=== PATIENT | female | born 1950 | race Caucasian/White ===

== ENCOUNTER 2017-09-11 07:53 | Emergency (ER) | payer OTHER, MEDICAID ==
--- NOTE | 2017-09-11 08:01 | EDPHY ---
H & P Time Seen by Provider: 09/11/17 08:01 HPI/ROS: CHIEF COMPLAINT: Shaky and lightheaded HISTORY OF PRESENT ILLNESS: Patient says she has been having the symptoms 3 times a week for the past year. She gets shaky and lightheaded and feels dizzy , not vertigo or spinning. Symptoms were this morning, she says they are severe. Not associated with chest or abdominal pain or vomiting. No weakness or numbness in extremities. No visual symptoms. She is specifically worried she might have a recurrent urinary tract infection as she tells me she had urosepsis about a month ago and was hospitalized. REVIEW OF SYSTEMS: Eye: no change in vision ENT: no sore throat Cardiac: no chest pain or syncope Pulmonary: no cough or SOB Abdomen: no vomiting, diarrhea, abdominal pain Musculoskeletal: no back pain Skin: no rash Neuro: Very mild headache which is her typical migraine Constitutional: no fever : Worsening smell of her urine. A comprehensive 10 point review of systems is otherwise negative aside from elements mentioned in the history of present illness. PAST MEDICAL HISTORY: Discharge summary dated 04/16/2015 in [facility] dated 2013 personally reviewed includes hypertension, cirrhosis, bipolar disorder, GERD, diabetes, cholecystectomy, hysterectomy, AICD placement. Social history: Recently homeless General Appearance: Alert and conversant, cooperative. Eyes: No scleral icterus. ENT, Mouth: Normal mucous membranes. Respiratory: Normal respiratory effort, breath sounds equal, lungs are clear to auscultation. Cardiovascular: Regular rate and rhythm. Gastrointestinal: Abdomen is soft and non tender. Neurological: Alert, face symmetric, normal motor and sensory in extremities. Extraocular motion intact. Good strength in all 4 extremities. Speech is fluent. Skin: Warm and dry, no rashes. Musculoskeletal: No peripheral edema. Psychiatric: Appears anxious and depressed. Emergency Department course/MDM: Plan for labs and EKG, urinalysis. Results discussed with the patient, seen by case management, stable for discharge. Ambulatory without ataxia. She does have symptoms that she gets 3 times a week for the past year. At this time I think it is unlikely she has UTI, AICD malfunction, metabolic abnormality, acute stroke or other intracranial or neurologic emergent illness. Smoking Status: Current every day smoker Constitutional: Initial Vital Signs Temperature (C) 36.7 C 06/21/18 08:06 Heart Rate 71 09/11/17 08:06 Respiratory Rate 16 09/11/17 08:06 Blood Pressure 161/89 H 09/11/17 08:06 O2 Sat (%) 95 09/11/17 08:06 O2 Delivery Mode Room Air Allergies/Adverse Reactions: codeine Allergy (Verified 04/13/15 17:14) meperidine HCl [From Demerol] Allergy (Verified 04/13/15 17:14) methadone [Methadone] Allergy (Verified 04/13/15 17:14) morphine Allergy (Verified 04/13/15 17:14) nalbuphine HCl [From Nubain] Allergy (Verified 04/13/15 17:14) Home Medications: Medication Instructions Recorded Folic Acid [Folic Acid 1 MG (*)] 1 mg PO DAILY 01/17/14 LORazepam [Ativan (*)] 1 mg PO Q6H PRN 01/17/14 Lactulose [Generlac] 30 gm PO TID PRN 01/17/14 Levothyroxine [Synthroid 75 mcg 75 mcg PO DAILY06 01/17/14 (*)] Metoprolol Tartrate [Lopressor 25 12.5 mg PO BID 01/17/14 mg (*)] Rifaximin [Xifaxan] 550 mg PO BID 01/17/14 Medical Decision Making - Diagnostics EKG Interpretation: 12-lead EKG interpreted by me; official reading is in trace master. My interpretation is sinus rhythm rate 62 with atrial sensing and ventricular pacing. Imaging Results: Imaging Impressions Chest X-Ray 09/11/17 08:54 Impression: 1. Pacemaker unit and leads in stable position. 2. No active cardiopulmonary disease seen. Chest x-ray negative except for AICD. Imaging: I viewed and interpreted images myself Differential Diagnosis: Differential considered including but not limited to hypoglycemia, cardiac dysrhythmia, infection such as UTI or pyelonephritis, metabolic abnormality - Data Points Laboratory Results: Laboratory Results 09/11/17 08:00 09/11/17 08:00 09/11/17 09/11/17 09/11/17 08:55 08:00 08:00 WBC 3.80 10^3/uL 10^3/uL (3.80-9.50) RBC 4.87 10^6/uL 10^6/uL (4.18-5.33) Hgb 13.3 g/dL g/dL (12.6-16.3) Hct 40.6 % % (38.0-47.0) MCV 83.4 fL fL (81.5-99.8) MCH 27.3 pg L pg (27.9-34.1) MCHC 32.8 g/dL g/dL (32.4-36.7) RDW 17.0 % H % (11.5-15.2) Plt Count 94 10^3/uL L 10^3/uL (150-400) MPV 10.6 fL fL (8.7-11.7) Neut % (Auto) 58.4 % % (39.3-74.2) Lymph % (Auto) 24.5 % % (15.0-45.0) [place] % (Auto) 11.8 % % (4.5-13.0) Eos % (Auto) 4.2 % % (0.6-7.6) Baso % (Auto) 0.8 % % (0.3-1.7) Nucleat RBC Rel Count 0.0 % % (0.0-0.2) Absolute Neuts (auto) 2.22 10^3/uL 10^3/uL (1.70-6.50) Absolute Lymphs (auto) 0.93 10^3/uL L 10^3/uL (1.00-3.00) Absolute Monos (auto) 0.45 10^3/uL 10^3/uL (0.30-0.80) Absolute Eos (auto) 0.16 10^3/uL 10^3/uL (0.03-0.40) Absolute Basos (auto) 0.03 10^3/uL 10^3/uL (0.02-0.10) Absolute Nucleated RBC 0.00 10^3/uL 10^3/uL (0-0.01) Immature Gran % 0.3 % % (0.0-1.1) Immature Gran # 0.01 10^3/uL 10^3/uL (0.00-0.10) Sodium 144 mEq/L mEq/L (135-145) Potassium 4.0 mEq/L mEq/L (3.3-5.0) Chloride 107 mEq/L mEq/L (97-110) Carbon Dioxide 26 mEq/l mEq/l (22-31) Anion Gap 14 mEq/L mEq/L (8-16) BUN 10 mg/dL mg/dL (7-23) Creatinine 0.6 mg/dL mg/dL (0.6-1.0) Estimated GFR > 60 Glucose 83 mg/dL mg/dL (70-100) Calcium 10.1 mg/dL mg/dL (8.5-10.4) Urine Color YELLOW Urine Appearance CLEAR Urine pH 7.0 (5.0-7.5) Ur Specific [place] 1.009 (1.002-1.030) Urine Protein NEGATIVE (NEGATIVE) Urine Ketones NEGATIVE (NEGATIVE) Urine Blood NEGATIVE (NEGATIVE) Urine Nitrate POSITIVE H (NEGATIVE) Urine Bilirubin NEGATIVE (NEGATIVE) Urine Urobilinogen NEGATIVE EU EU (0.2-1.0) Ur Leukocyte Esterase NEGATIVE (NEGATIVE) Urine RBC 1-3 /hpf /hpf (0-3) Urine WBC 1-3 /hpf /hpf (0-3) Ur Epithelial Cells TRACE /lpf /lpf (NONE-1+) Urine Bacteria TRACE /hpf H /hpf (NONE SEEN) Urine Glucose NEGATIVE (NEGATIVE) Medications Given: Discontinued Medications Sodium Chloride (Ns) 1,000 mls @ 0 mls/hr IV EDNOW ONE; Wide Open PRN Reason: Protocol Stop: 09/11/17 09:26 Last Admin: 09/11/17 09:43 Dose: 1,000 mls Departure - Departure Disposition: Home, Routine, Self-Care Clinical Impression: Light-headed feeling Condition: Good Instructions: Lightheadedness (ED) Referrals: JANE LEIVA [Primary Care Provider] - As per Instructions
--- NOTE | 2017-09-11 08:37 | CPEKG ---
Heart Rate: 62 RR Interval: 968 P-R Interval: 208 QRSD Interval: 144 QT Interval: 508 QTC Interval: 516 P [place]: 61 QRS [place]: 44 T Wave [place]: 232 EKG Severity - ABNORMAL ECG - EKG Impression: ATRIAL-SENSED VENTRICULAR-PACED COMPLEXES EKG Impression: LEFT BUNDLE BRANCH BLOCK Electronically Signed By: Triston Miles 11-Sep-2017 08:54:41
[2017-09-11 08:56] LABS: PLATELET COUNT 94 10^3/uL (150-400)
[2017-09-11] MEDS ORDERED: NS 1,000 ML IV ONE (09:25)
[2017-09-11 09:47] VITALS: BP 160/98
--- NOTE | 2017-09-11 10:50 | ASMTCMCOM ---
CM Note CM Note Notes: Met with patient to discuss and evaluate for resources and emotional support. See ER report for details of vist. Patient is pleasant and tearful, appreciative of visit/talking. She tells me she is struggling with her family situation, "my kids won't talk to me" and has been staying at the "assisted". Patient admits to going through the coordinated entry program, and this is how she currently has a spot at [facility]. Patient denies history of drug or alcohol abuse, "I never drank" and does not take medication for a documented history of bipolar disorder. "I don't think I have that anymore". She does admit to anxiety for which she states, "I'd reallly like someone to listen to me". I asked patient if she has a counselor or therapist that she can see and reminded her of the crisis center at [facility]. Patient states that she goes to the [facility]" in [place] "because they know me there". She denies any pending appointments or establishment with a therapist. I encouraged her to be more proactive in following up with this, and again reminded her that the crisis center in [place] is available 14/10 via phone or walk in. I have provided patient with a bus pass and contact information for [facility]-all locations. I explained that I am providing her with this pass so that she can follow up with [facility] now, and she assures me she will follow up with establishing a counselor. Date Signed: 09/11/2017 10:49 AM Electronically Signed By:Peace Garza RN
== END 2017-09-11 10:21 | disposition home or self-care (01) ==
LOC: EDUNIT#
DX: R42 Dizziness and giddiness (principal); I10 Essential (primary) hypertension; E11.9 Type 2 diabetes mellitus without complications; F17.200 Nicotine dependence, unspecified, uncomplicated; E86.9 Volume depletion, unspecified

== ENCOUNTER 2017-09-29 19:20 | Emergency (ER) | payer OTHER, MEDICAID ==
--- NOTE | 2017-09-29 19:35 | EDPHY ---
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 dementia, - Social History Smoking Status: Current every day smoker Time Seen by Provider: 09/29/17 19:29 HPI/ROS: CHIEF COMPLAINT: "I just want to " HISTORY OF PRESENT ILLNESS: 59-year-old female history of homelessness, bipolar disorder, arrives on M1 hold complaining suicidal ideation with plan to "[place] the [place] and give myself back to nature". Denies illicit drug or alcohol use. Denies hallucination. Denies self-injurious behavior. States that the primary reason for experiencing suicidal ideations because "nobody loves me" PRIMARY CARE PROVIDER: REVIEW OF SYSTEMS: A ten point review of systems was performed and is negative with the exception of the items mentioned in the HPI PAST MEDICAL & SURGICAL HISTORY: Bipolar disorder. Chronic migraine SOCIAL HISTORY:Homeless. Denies alcohol or drug use PHYSICAL EXAM (Prior to examination, patient consented to physical exam, hands were washed and my usual and customary physical exam procedures followed) 1) GENERAL: [Well-developed, well-nourished, alert and oriented. Crying 2) HEAD: Normocephalic, atraumatic 3) HEENT: Pupils equal, round, reactive to light bilaterally. Sclera anicteric. 4) NECK: Full range of motion, no meningeal signs. 5) LUNGS: Clear auscultation bilaterally, no wheezes, no rhonchi, no retractions. 6) HEART: Regular rate and rhythm, no murmur, no heave, no gallop. 7) ABDOMEN: No guarding, no rebound, no focal tenderness, negative McBurney's, negative Stephenson's, negative Rovsing's, negative peritoneal sign, 8) MUSCULOSKELETAL: Moving all extremities, no focal areas of tenderness, no obvious trauma. No peripheral edema or discoloration. 9) BACK: No CVA tenderness, no midline vertebral tenderness, no fluctuance, no step-off, no obvious trauma, no visual or palpable abnormality. 10) SKIN: No rash, no petechiae. 11) Psychiatric: Patient is oriented X 3, there is no agitation. Crying DIFFERENTIAL DIAGNOSIS: In no particular include but limited to suicidal ideation, homicidal ideation, depression, bipolar disorder (Kaylan,D Nalini) Constitutional: Initial Vital Signs Temperature (C) 36.9 C 09/29/17 19:20 Heart Rate 88 09/29/17 19:20 Respiratory Rate 16 09/29/17 19:20 Blood Pressure 178/92 H 09/29/17 19:20 O2 Sat (%) 95 09/29/17 19:20 O2 Delivery Mode Room Air Allergies/Adverse Reactions: codeine Allergy (Verified 04/13/15 17:14) meperidine HCl [From Demerol] Allergy (Verified 04/13/15 17:14) methadone [Methadone] Allergy (Verified 04/13/15 17:14) morphine Allergy (Verified 04/13/15 17:14) nalbuphine HCl [From Nubain] Allergy (Verified 04/13/15 17:14) Home Medications: Medication Instructions Recorded LORAZEPAM 09/29/17 LaMICtal 09/29/17 Oxybutynin 09/29/17 Zofran 09/29/17 Medical Decision Making ED Course/Re-evaluation: I did not see this patient while she was in the emergency department. However her care was discussed with the PA while the patient was in the department. I agree with treatment plan and management (Donn Villalpando) 7:34 p.m.: Patient is on an M1 hold for suicidal ideation. Will obtain diagnostic studies and contact mental health gas meter repair supervisor. This time she is calm and cooperative. I saw this patient independently based on established practice protocols. Care of patient under supervision of secondary supervising physician Dr Donn Villalpando with whom I discussed case. 8:19 p.m.: Patient has history of chronic migraine, complaining of early onset of usual migraine symptoms, non thunderclap. I spoke with the patient's time in re-examined the patient. Nonfocal exam, answering questions appropriately. States that she typically takes 25 mg oral Imitrex. This will be provided to her. 10:47 p.m.: Mental health gas meter repair supervisor has evaluated the patient. In consultation with with attending psychiatrist Dr. Salazar who has vacated the M1 hold (Shahida Kimbrough) - Data Points Laboratory Results: Laboratory Results 09/29/17 19:50 09/29/17 19:50 09/29/17 09/29/17 09/29/17 19:50 19:50 19:40 WBC 4.66 10^3/uL 10^3/uL (3.80-9.50) RBC 4.29 10^6/uL 10^6/uL (4.18-5.33) Hgb 11.9 g/dL L g/dL (12.6-16.3) Hct 36.0 % L % (38.0-47.0) MCV 83.9 fL fL (81.5-99.8) MCH 27.7 pg L pg (27.9-34.1) MCHC 33.1 g/dL g/dL (32.4-36.7) RDW 16.1 % H % (11.5-15.2) Plt Count 114 10^3/uL L 10^3/uL (150-400) MPV 11.9 fL H fL (8.7-11.7) Neut % (Auto) 50.0 % % (39.3-74.2) Lymph % (Auto) 33.5 % % (15.0-45.0) [place] % (Auto) 12.0 % % (4.5-13.0) Eos % (Auto) 3.6 % % (0.6-7.6) Baso % (Auto) 0.9 % % (0.3-1.7) Nucleat RBC Rel Count 0.0 % % (0.0-0.2) Absolute Neuts (auto) 2.33 10^3/uL 10^3/uL (1.70-6.50) Absolute Lymphs (auto) 1.56 10^3/uL 10^3/uL (1.00-3.00) Absolute Monos (auto) 0.56 10^3/uL 10^3/uL (0.30-0.80) Absolute Eos (auto) 0.17 10^3/uL 10^3/uL (0.03-0.40) Absolute Basos (auto) 0.04 10^3/uL 10^3/uL (0.02-0.10) Absolute Nucleated RBC 0.00 10^3/uL 10^3/uL (0-0.01) Immature Gran % 0.0 % % (0.0-1.1) Immature Gran # 0.00 10^3/uL 10^3/uL (0.00-0.10) Sodium 139 mEq/L mEq/L (135-145) Potassium 4.0 mEq/L mEq/L (3.3-5.0) Chloride 110 mEq/L mEq/L (97-110) Carbon Dioxide 23 mEq/l mEq/l (22-31) Anion Gap 6 mEq/L L mEq/L (8-16) BUN 12 mg/dL mg/dL (7-23) Creatinine 0.6 mg/dL mg/dL (0.6-1.0) Estimated GFR > 60 Glucose 79 mg/dL mg/dL (70-100) Calcium 9.9 mg/dL mg/dL (8.5-10.4) Salicylates < 1.0 mg/dL L mg/dL (2.0-20.0) Urine Opiates Screen NEGATIVE (NEGATIVE) Acetaminophen < 10 mcg/mL L mcg/mL (10-30) Urine Barbiturates NEGATIVE (NEGATIVE) Ur Phencyclidine Scrn NEGATIVE (NEGATIVE) Ur Amphetamine Screen NEGATIVE (NEGATIVE) U Benzodiazepines Scrn NEGATIVE (NEGATIVE) Urine Cocaine Screen NEGATIVE (NEGATIVE) U Marijuana (THC) Screen NON-NEGATIVE H (NEGATIVE) Ethyl Alcohol < 10 mg/dL mg/dL (0-10) Medications Given: Discontinued Medications Sumatriptan Succinate (Imitrex) 25 mg PO ONCE ONE Stop: 09/29/17 20:20 Last Admin: 09/29/17 21:01 Dose: 25 mg Departure - Departure Disposition: Home, Routine, Self-Care Clinical Impression: Depression Bipolar disorder Qualifiers: Active/Remission status: currently active Current bipolar episode type: depressed Current episode severity: unspecified Qualified Code(s): F31.30 - Bipolar disorder, current episode depressed, mild or moderate severity, unspecified Condition: Good Instructions: Depression (DC), Depression (ED) Additional Instructions: Return to the ER immediately if you experience thoughts of hurting yourself, thoughts of hurting other people, thoughts of killing other people or killing yourself. Referrals: [facility] [Clinic] - 1 day without fail
[2017-09-29 20:10] LABS: PLATELET COUNT 114 10^3/uL (150-400)
[2017-09-29 20:17] VITALS: BP 178/92
[2017-09-29] MEDS ORDERED: SUMAtriptan 25 MG TAB PO ONE (20:19)
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
--- NOTE | 2017-09-29 23:13 | ASMTTCLDSP ---
TLC Discharge Disposition Disposition: Answers: Discharge Disposition Notes: Notes: In consultation with [facility] ED physician, Donn Villalpando MD, and on-call psychiatrist, Cirilo Salazar MD, both concurred that the patient does not appear to meet 27-65 criteria requiring psychiatric hospitalization as patient does not appear to be an imminent risk of harm to self due to a mental illness condition. Dr. Salazar provided telephone order read back vacating M1 hold at 22:00 hrs. Discharge Concerns/Recommendations: Notes: The patient was given local hotline information and [employer] brochure after an attempt an d encouraged to follow up with [facility] and Shane Barrios MD (the patient's PCP). Was patient given the Answers: Not applicable Inpatient Behavioral Health Prohibited Belongings List while in the ED? Date and time M1 hold 09/29/2017 10:30 PM vacated (time format is hh:mm): Type of Hold: Answers: M1/72-hour Hold Hold initiated by: Answers: Other Notes: Homeless Outreach Therapist Date Signed: 09/29/2017 11:12 PM Electronically Signed By:Terri Gerardo
== END 2017-09-29 23:30 | disposition home or self-care (01) ==
LOC: EDUNIT#
PROC: GZ11ZZZ Psychological Tests, Personality and Behavioral (ICD-10-PCS; principal; 2017-09-29)
DX: F31.30 Bipolar disorder, current episode depressed, mild or moderate severity, unspecified (principal); J45.909 Unspecified asthma, uncomplicated; E11.9 Type 2 diabetes mellitus without complications; F17.200 Nicotine dependence, unspecified, uncomplicated; Z95.0 Presence of cardiac pacemaker
CPT/HCPCS: 80305; G0480

== ENCOUNTER 2018-01-09 07:05 | Emergency (ER) | payer OTHER, MEDICAID ==
--- NOTE | 2018-01-09 07:14 | EDPHY ---
H & P Time Seen by Provider: 01/09/18 07:13 HPI/ROS: Chief complaint. Respiratory infection HPI. 59-year-old female here by EMS with complaint of shortness of breath. Diagnosed with respiratory infection that does not sound like it was pneumonia 5 days ago. Started on antibiotics. She has been taking them but does not have been with her and does not know the name. She notes some shortness of breath and cough. She has a history of pneumonia. She tells me her heart feels fluttery. She has a history of atrial fibrillation with a pacemaker defibrillator in place. She had fever a few days ago but not since. She continues to be a smoker. She has history of black mold exposure in the past ROS 10 systems were reviewed and negative with the exception of the elements mentioned in the history of present illness Past Medical/Surgical History: Past medical history significant for bipolar illness, diabetes, pacemaker/ defibrillator, atrial fibrillation, liver disease, dementia Social History: Single, daily smoker, no alcohol Smoking Status: Current every day smoker Physical Exam: General Appearance: Alert well-developed female mild distress vital signs are stable Eyes: Pupils equal and round no pallor or injection. ENT, Mouth: Mucous membranes are moist. Respiratory: No retractions. Mild inspiratory expiratory rhonchi Cardiovascular: Regular rate and rhythm. Gastrointestinal: Abdomen is soft and nontender, no masses, bowel sounds normal. Neurological: Awake and alert, sensory and motor exams grossly normal. Skin: Warm and dry, no rashes. Musculoskeletal: Neck is supple nontender. Extremities symmetrical, full range of motion. Psychiatric: Patient is oriented X 3, there is no agitation. Constitutional: Initial Vital Signs Temperature (C) 36.4 C 01/09/18 07:07 Heart Rate 83 01/09/18 07:07 Respiratory Rate 24 H 01/09/18 07:07 Blood Pressure 145/66 H 01/09/18 07:07 O2 Sat (%) 96 01/09/18 07:07 O2 Delivery Mode Room Air Allergies/Adverse Reactions: codeine Allergy (Verified 04/13/15 17:14) meperidine HCl [From Demerol] Allergy (Verified 04/13/15 17:14) methadone [Methadone] Allergy (Verified 04/13/15 17:14) morphine Allergy (Verified 04/13/15 17:14) nalbuphine HCl [From Nubain] Allergy (Verified 04/13/15 17:14) Home Medications: Medication Instructions Recorded LORAZEPAM 09/29/17 LaMICtal 09/29/17 Oxybutynin 09/29/17 Zofran 09/29/17 predniSONE 40 mg PO DAILY #8 tablet 01/09/18 Medical Decision Making - Diagnostics Imaging Results: Imaging Impressions Chest X-Ray 01/09/18 07:10 Impression: 1. No acute findings. 2. Hyperexpansion with peribronchial thickening, suggesting COPD. 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 No obvious pneumonia Procedures: IV normal saline, monitor DuoNeb updraft Solu-Medrol IV ED Course/Re-evaluation: Re-evaluation 9:20 a.m.--patient and I discussed laboratory evaluation, treatment plan including criteria for return importance of follow-up further evaluation. She expresses understanding and agreement Patient is stable and improved. She tells me she has an inhaler and a spacer but they do not fit together. We will give her a albuterol MDI and spacer that fits. Differential Diagnosis: I considered pneumonia, COPD exacerbation - Data Points Laboratory Results: Laboratory Results 01/09/18 07:12 01/09/18 07:12 01/09/18 01/09/18 01/09/18 07:12 07:12 07:12 WBC 6.50 10^3/uL 10^3/uL (3.80-9.50) RBC 4.52 10^6/uL 10^6/uL (4.18-5.33) Hgb 11.8 g/dL L g/dL (12.6-16.3) Hct 36.1 % L % (38.0-47.0) MCV 79.9 fL L fL (81.5-99.8) MCH 26.1 pg L pg (27.9-34.1) MCHC 32.7 g/dL g/dL (32.4-36.7) RDW 17.4 % H % (11.5-15.2) Plt Count 104 10^3/uL L 10^3/uL (150-400) MPV 12.0 fL H fL (8.7-11.7) Neut % (Auto) 69.4 % % (39.3-74.2) Lymph % (Auto) 20.0 % % (15.0-45.0) Williams % (Auto) 10.0 % % (4.5-13.0) Eos % (Auto) 0.2 % L % (0.6-7.6) Baso % (Auto) 0.2 % L % (0.3-1.7) Nucleat RBC Rel Count 0.0 % % (0.0-0.2) Absolute Neuts (auto) 4.52 10^3/uL 10^3/uL (1.70-6.50) Absolute Lymphs (auto) 1.30 10^3/uL 10^3/uL (1.00-3.00) Absolute Monos (auto) 0.65 10^3/uL 10^3/uL (0.30-0.80) Absolute Eos (auto) 0.01 10^3/uL L 10^3/uL (0.03-0.40) Absolute Basos (auto) 0.01 10^3/uL L 10^3/uL (0.02-0.10) Absolute Nucleated RBC 0.00 10^3/uL 10^3/uL (0-0.01) Immature Gran % 0.2 % % (0.0-1.1) Immature Gran # 0.01 10^3/uL 10^3/uL (0.00-0.10) VBG Lactic Acid 2.0 mmol/L mmol/L (0.7-2.1) Sodium 143 mEq/L mEq/L (135-145) Potassium 4.1 mEq/L mEq/L (3.3-5.0) Chloride 113 mEq/L H mEq/L (97-110) Carbon Dioxide 22 mEq/l mEq/l (22-31) Anion Gap 8 mEq/L mEq/L (6-14) BUN 12 mg/dL mg/dL (7-23) Creatinine 0.5 mg/dL L mg/dL (0.6-1.0) Estimated GFR > 60 Glucose 106 mg/dL H mg/dL (70-100) Calcium 9.8 mg/dL mg/dL (8.5-10.4) Medications Given: Discontinued Medications Albuterol/Ipratropium (Duoneb) 3 ml IH EDNOW ONE Stop: 01/09/18 07:25 Last Admin: 01/09/18 07:31 Dose: 3 ml Methylprednisolone Sodium Succinate (Solu-Medrol) 125 mg IVP EDNOW ONE Stop: 01/09/18 07:26 Last Admin: 01/09/18 07:31 Dose: 125 mg Departure - Departure Disposition: Home, Routine, Self-Care Clinical Impression: Chronic obstructive pulmonary disease with acute exacerbation Condition: Good Instructions: COPD (Chronic Obstructive Pulmonary Disease) (ED) Additional Instructions: Take prednisone each day for the next 4 days to help with breathing. Use the albuterol and spacer every 4 hr to help with breathing Continue antibiotics until they are finished Return for worsening symptoms. Recheck in 2 days if not improved Referrals: Patient,NotPresent [Unknown] - As per Instructions [facility] [Outside] - 2-3 days, if not improved Prescriptions: predniSONE 40 mg PO DAILY #8 tablet
[2018-01-09] MEDS ORDERED: IPRATROPIUM/ALBUTEROL 3 ML DEYVIAL IH ONE (07:24)
[2018-01-09] MEDS ORDERED: methylPREDNISolone SOD SUCC 125 MG/2 ML VIAL IVP ONE (07:25)
[2018-01-09 07:29] LABS: PLATELET COUNT 104 10^3/uL (150-400)
[2018-01-09] MEDS ORDERED: ALBUTEROL INH PREPACK MDI TAKEHOME ONE (09:24)
--- NOTE | 2018-01-09 10:27 | CPEKG ---
Test Reason : OPEN Blood Pressure : / mmHG Vent. Rate : 073 BPM Atrial Rate : 074 BPM P-R Int : 175 ms QRS Dur : 145 ms QT Int : 430 ms P-R-T Axes : 055 016 194 degrees QTc Int : 474 ms Sinus rhythm Probable left atrial enlargement Left bundle branch block Confirmed by Donn Villalpando ([id number]) on 01/09/2018 10:27:22 AM Referred By: Confirmed By:Donn Villalpando
[2018-01-09 10:52] VITALS: BP 175/90
--- NOTE | 2018-01-09 14:42 | ASMTCMCOM ---
CM Note CM Note Notes: Pt presented to the ED via EMS for SOB and states she was diagnosed w/a respiratory infection 01/05. Pt has been staying at the [facility] and states she is close to getting Section 8 housing. Pt states she has an inhaler back at the snf but the spacer she has does not fit properly. The one available from the ED is the same one she has at the snf. Pt states that the spacer she needs was a part of a prescription she received from Dr Ankush Putnam who used to be at [facility] in [place] but is no longer at that practice. Pt's PCP is Dr Shane Barrios at [facility] in [place] ([phone]). This CM called and left a voicemail for Dr Barrios's Copy Chaser, Taylor, to inquire about what exact inhaler Rxn pt needs but have not heard back. This CM scheduled pt an appt w/Dr Barrios today at 3:30pm and pt is agreeable to going to this appt to discuss her inhaler/spacer needs. Pt provided a Rxn for Prednisone and she states she will get it filled at [facility]. Pt provided a Medicaid cab back to [facility] area. CM available for further assistance if needed. Date Signed: 01/09/2018 02:42 PM Electronically Signed By:Malu Sales RN
== END 2018-01-09 10:52 | disposition home or self-care (01) ==
LOC: EDUNIT#
DX: J44.1 Chronic obstructive pulmonary disease with (acute) exacerbation (principal); E11.9 Type 2 diabetes mellitus without complications; F31.9 Bipolar disorder, unspecified; Z95.0 Presence of cardiac pacemaker; F17.200 Nicotine dependence, unspecified, uncomplicated
CPT/HCPCS: 71046; 93005; 96374; 99285; J2930

== ENCOUNTER 2018-01-23 19:52 | Emergency (ER) | payer OTHER, MEDICAID ==
--- NOTE | 2018-01-23 19:58 | EDPHY ---
H & P Time Seen by Provider: 01/23/18 19:58 HPI/ROS: CHIEF COMPLAINT: Chest pain HISTORY OF PRESENT ILLNESS: The patient is a homeless 67 y/o female with a history of CAD, atrial fibrillation, angina, and pacemaker/defibrillator arriving via EMS complaining of chest pain onset tonight around 18:45, 2 hours ago. She describes central chest pain moving across to her right anterior chest and then radiating to both sides of her back. She has associated nausea. She reports she's had a non-productive cough for 3 months that is "about the same." She denies fever, vomiting, diarrhea, abdominal pain, recent trauma. She received IV Fentanyl and SL Nitro from EMS en route. REVIEW OF SYSTEMS: A ten system review of systems was performed and is negative with the exception of the items mentioned in the HPI. Past medical history: Angina, [place]?, atrial fibrillation, bipolar disorder, diabetes, liver disease, dementia Past surgical history: Pacemaker/defibrillator (1st one implanted Oct 1990) Family history: Noncontributory Social history: From [place], currently homeless with permanent spot at the senior care. PCP: Dr. Shane Barrios. Alligator Shear Operator: Dr. Ulysses Valentine Prior medical records reviewed including ED visit 01/09/18 for similar symptoms. General Appearance: Alert. Vital signs reviewed. Eyes: Pupils equal and round, no conjunctival injection, no discharge. Anicteric. ENT, Mouth: Mucous membranes are moist, no oropharyngeal erythema or edema. Neck: No lymphadenopathy, supple. Respiratory: Lungs have expiratory wheezes bilaterally to auscultation; no rales, or rhonchi. Cardiovascular: Regular rate and rhythm; no murmur, rub, or gallop. Gastrointestinal: Abdomen is soft and nontender, no masses or organomegaly. Skin: Warm and dry, no rashes on exposed skin, normal color. Back: Nontender to palpation over the thoracolumbar spine. No CVAT. Extremities: 1+ lower extremity edema bilaterally, no calf tenderness or swelling. Neurological: Alert and oriented. Moving all four extremities easily and equally. Psychiatric: Normal affect. - Medical/Surgical History Hx Asthma: Yes Hx Chronic Respiratory Disease: No Hx Diabetes: Yes Hx Cardiac Disease: Yes Hx Renal Disease: No Hx Cirrhosis: Yes Hx Alcoholism: No Hx HIV/AIDS: No Hx Splenectomy or Spleen Trauma: No Other PMH: Bipolar, diabetes, pacemaker, afib, liver disease not related to alcohol. dementia, - Social History Smoking Status: Current every day smoker Constitutional: Initial Vital Signs Temperature (C) 37.0 C 01/23/18 19:55 Heart Rate 76 01/23/18 19:55 Respiratory Rate 20 01/23/18 19:55 Blood Pressure 162/86 H 01/23/18 19:55 O2 Sat (%) 93 01/23/18 19:55 O2 Delivery Mode Room Air Allergies/Adverse Reactions: codeine Allergy (Verified 01/23/18 19:55) meperidine HCl [From Demerol] Allergy (Verified 01/23/18 19:55) methadone [Methadone] Allergy (Verified 01/23/18 19:55) morphine Allergy (Verified 01/23/18 19:55) nalbuphine HCl [From Nubain] Allergy (Verified 01/23/18 19:55) Home Medications: Medication Instructions Recorded LORAZEPAM 09/29/17 LaMICtal 09/29/17 Oxybutynin 09/29/17 Zofran 09/29/17 predniSONE 40 mg PO DAILY #8 tablet 01/09/18 Azithromycin 250 mg PO DAILY #4 tablet 01/23/18 Medical Decision Making - Diagnostics Imaging: I viewed and interpreted images myself ED Course/Re-evaluation: This is a homeless 67 y/o female with a history of cardiac disease and 3-month history of cough who presents with a 2-hour history of chest pain. She has bilateral expiratory wheezes on exam and is coughing frequently. She is afebrile. Doubt ACS, URI or PNA more likely. Plan for IV, labs, EKG, chest x- ray. The 12 lead EKG was interpreted by myself. Paced rhythm. See hard copy and/or "tracemaster" electronic copy for interpretation. Troponin is negative. Chest x-ray: RLL infiltrate. Albuterol neb treatment ordered. Flu swab ordered . Flu negative. Wheezing improved and air exchange improved after neb. Oxygen saturation from 93% to 99%. She is not hypoxic, tachypneic, febrile. I do have some concerns about her living situation in terms of OP treatment-- she has a permanent spot at the senior care. She is willing to return to the senior care and take antibiotics (first dose given here), use albuterol QID, wear mask. She does not have influenza. I suspect atypical organism. I have stressed importance of close follow up for her. Differential Diagnosis: Shortness of breath including but not limited to pulmonary infectious process, COPD, asthma, pulmonary embolus and congestive heart failure. Chest pain including but not limited to myocardial ischemia, pulmonary embolus, chest wall pain, pleural inflammation and pulmonary infectious causes. - Data Points Laboratory Results: Laboratory Results 01/23/18 20:05 01/23/18 20:05 Medications Given: Discontinued Medications Acetaminophen (Tylenol) 1,000 mg PO EDNOW ONE Stop: 01/23/18 23:16 Last Admin: 01/23/18 23:17 Dose: 1,000 mg Albuterol (Proventil Neb) 3 ml IH EDNOW ONE Stop: 01/23/18 22:52 Last Admin: 01/23/18 23:05 Dose: 3 ml Albuterol Sulfate (Proventil Inh Prepack) 1 mdi TAKEHOME EDNOW ONE Stop: 01/23/18 23:32 Last Admin: 01/24/18 00:08 Dose: 1 mdi Azithromycin (Zithromax) 500 mg PO EDNOW ONE PRN Reason: Protocol Stop: 01/23/18 23:56 Last Admin: 01/24/18 00:09 Dose: 500 mg Point of Care Test Results: Chemistry 01/23/18 20:13 POC Troponin I 0.03 ng/mL ng/mL (0.00-0.08) Departure - Departure Disposition: Home, Routine, Self-Care Clinical Impression: Pneumonia Qualifiers: Pneumonia type: due to unspecified organism Laterality: right Lung location: lower lobe of lung Qualified Code(s): J18.1 - Lobar pneumonia, unspecified organism Condition: Good Instructions: Albuterol (By breathing), Azithromycin (By mouth), Pneumonia (ED) Additional Instructions: Adult Pain & Fever Control: We recommend Acetaminophen (Tylenol) and Ibuprofen (Motrin,Advil) for pain and fever control. When fever is high or pain severe, both drugs can be used at the same time, but at different intervals. Please note the time differences. Your dose is: Acetaminophen 650mg every 4 to 6 hours Ibuprofen 400mg every 8 hours with food OR Note: do not take Acetaminophen with Hydrocodone (Vicodin, Lortab) or Oycodone (Percocet). These medications also contain Acetaminophen. No more than 3000mg of Acetaminophen should be taken in 24 hours (for an adult) .1. Take azithromycin as prescribed every day--250 mg every day for four days. Be sure to complete the entire prescription even if you feel better. 2. Use Tylenol and ibuprofen as directed as needed for pain or fever over the next few days. 3. Follow up with [facility] next week for reevaluation. Please call first thing Friday to schedule this appointment. 4. Return to the ED for worsening of condition. 5. Use the albuterol inhaler, two puffs, four times daily. 6. Try to quit smoking. Referrals: [facility],. [Clinic] - As per Instructions Prescriptions: Azithromycin 250 mg PO DAILY #4 tablet Report Scribed for: Torie Rodríguez Report Scribed by: Eula Gutierrez Date of Report: 01/23/18 Time of Report: 21:08 Physician Review and Approval Statement: 01/23/18 19:58 Portions of this note were transcribed by the medical administrative specialist. I, Dr. Torie Rodríguez, personally performed the history, physical exam, and medical decision- making; and confirmed the accuracy of the information in the transcribed note.
[2018-01-23 21:17] LABS: PLATELET COUNT 83 10^3/uL (150-400)
[2018-01-23] MEDS ORDERED: ALBUTEROL 3 ML DEYVIAL IH ONE (22:51)
[2018-01-23 23:14] VITALS: BP 151/62
[2018-01-23] MEDS ORDERED: ACETAMINOPHEN 500 MG TAB PO ONE (23:15)
[2018-01-23] MEDS ORDERED: ALBUTEROL INH PREPACK MDI TAKEHOME ONE (23:31)
[2018-01-23] MEDS ORDERED: AZITHROMYCIN 250 MG TAB PO ONE (23:55)
--- NOTE | 2018-01-24 20:03 | CPEKG ---
Test Reason : OPEN Blood Pressure : / mmHG Vent. Rate : 075 BPM Atrial Rate : 076 BPM P-R Int : 193 ms QRS Dur : 134 ms QT Int : 413 ms P-R-T Axes : 059 016 182 degrees QTc Int : 462 ms Atrial-sensed ventricular-paced complexes Confirmed by Ankush Martin ([id number]) on 01/24/2018 8:02:50 PM Referred By: Confirmed By:Ankush Martin
== END 2018-01-24 00:14 | disposition home or self-care (01) ==
LOC: EDUNIT#
DX: J18.1 Lobar pneumonia, unspecified organism (principal); E11.9 Type 2 diabetes mellitus without complications; K76.9 Liver disease, unspecified; F31.9 Bipolar disorder, unspecified; F17.200 Nicotine dependence, unspecified, uncomplicated; Z95.0 Presence of cardiac pacemaker; Z59.0 Homelessness
CPT/HCPCS: 71046; 93005; 99283; J7613; 84484-PO

== ENCOUNTER 2018-02-03 18:46 | Inpatient (IN) | payer OTHER, MEDICAID ==
[2018-02-03] MEDS ORDERED: ONDANSETRON 4 MG/2 ML VIAL IVP ONE (18:49)
[2018-02-03] MEDS ORDERED: NS 1,000 ML IV ONE (18:49)
[2018-02-03] MEDS ORDERED: PANTOPRAZOLE SODIUM 40 MG VIAL IVP ONE (19:14)
--- NOTE | 2018-02-03 19:17 | EDPHY ---
H & P Stated Complaint: N/V/D and abd pain x2 days Time Seen by Provider: 02/03/18 18:49 HPI/ROS: CHIEF COMPLAINT: Epigastric pain, vomiting HISTORY OF PRESENT ILLNESS: 68-year-old female s/p cholecystectomy presents with epigastric pain and vomiting. Onset of nausea yesterday, followed by multiple episodes of vomiting. Gradually increasing epigastric pain over the past 2 days. The pain is moderate to severe, without alleviating or aggravating factors. Similar to prior pain associated with peptic ulcer disease. 1 episode of loose stools today. Recently on antibiotics for pneumonia, stopped antibiotics 1 week ago. No fever. REVIEW OF SYSTEMS: complete 10 point ROS reviewed and is negative except for the noted elements in the HPI - Personal History Current Tetanus Diphtheria and Acellular Pertussis (TDAP): Yes - Medical/Surgical History Hx Asthma: Yes Hx Chronic Respiratory Disease: No Hx Diabetes: Yes Hx Cardiac Disease: Yes Hx Renal Disease: No Hx Cirrhosis: Yes Hx Alcoholism: Yes Hx HIV/AIDS: No Hx Splenectomy or Spleen Trauma: No Other PMH: Bipolar, diabetes, pacemaker, afib, liver disease not related to alcohol. dementia, [place], ulcers - Social History Smoking Status: Current every day smoker Alcohol Use: None Drug Use: None Additional Social History: Homeless - Physical Exam Exam: General Appearance: Alert, pleasant, appears uncomfortable Eyes: Pupils equal and round, no conjunctival pallor ENT, Mouth: Mucous membranes slightly dry Neck: Normal inspection Respiratory: Lungs are clear to auscultation Cardiovascular: Regular rate and rhythm Gastrointestinal: Abdomen is soft, epigastric tenderness, no peritoneal signs Neurological: A&O, nonfocal exam Skin: Warm and dry, no rash Extremities: Normal inspection Psychiatric: Mood and affect normal Constitutional: Initial Vital Signs Temperature (C) 36.3 C 02/03/18 18:58 Heart Rate 88 02/03/18 18:58 Respiratory Rate 18 02/03/18 18:58 Blood Pressure 155/81 H 02/03/18 18:58 O2 Sat (%) 98 02/03/18 18:58 O2 Delivery Mode Room Air Allergies/Adverse Reactions: codeine Allergy (Verified 01/23/18 19:55) meperidine HCl [From Demerol] Allergy (Verified 01/23/18 19:55) methadone [Methadone] Allergy (Verified 01/23/18 19:55) morphine Allergy (Verified 01/23/18 19:55) nalbuphine HCl [From Nubain] Allergy (Verified 01/23/18 19:55) Home Medications: Medication Instructions Recorded LaMICtal 09/29/17 Oxybutynin 09/29/17 Zofran 09/29/17 Lexapro 02/03/18 Lomotil Tab (*) 02/03/18 Maxalt 02/03/18 Omeprazole 02/03/18 Xifaxan 200mg (*) 02/03/18 Medical Decision Making ED Course/Re-evaluation: The patient presents with epigastric pain and vomiting, concerning for peptic ulcer disease versus pancreatitis. IV normal saline 1 L, Protonix and Zofran IV given. 1940: continues to have epig pain, just vomited. Lipase slightly elevated, possibly early pancreatitis, more likely PUD. LFTs reviewed and are similar to prior LFTs. Abdominal exam remains unchanged. Will admit for observation. Differential Diagnosis: Differential diagnosis includes though it is not limited to appendicitis, cholecystitis, diverticulitis, pyelonephritis, bowel perforation, small bowel obstruction. - Data Points Laboratory Results: Laboratory Results 02/03/18 18:40 02/03/18 18:40 02/03/18 02/03/18 02/03/18 19:27 18:40 18:40 WBC 5.89 10^3/uL 10^3/uL (3.80-9.50) RBC 5.07 10^6/uL 10^6/uL (4.18-5.33) Hgb 13.0 g/dL g/dL (12.6-16.3) POC Hgb 14.3 gm/dL gm/dL (12.6-16.3) Hct 41.5 % % (38.0-47.0) POC Hct 42 % % (38-47) MCV 81.9 fL fL (81.5-99.8) MCH 25.6 pg L pg (27.9-34.1) MCHC 31.3 g/dL L g/dL (32.4-36.7) RDW 18.9 % H % (11.5-15.2) Plt Count 103 10^3/uL L 10^3/uL (150-400) MPV 11.3 fL fL (8.7-11.7) Neut % (Auto) 77.1 % H % (39.3-74.2) Lymph % (Auto) 12.1 % L % (15.0-45.0) Overton % (Auto) 8.3 % % (4.5-13.0) Eos % (Auto) 1.9 % % (0.6-7.6) Baso % (Auto) 0.3 % % (0.3-1.7) Nucleat RBC Rel Count 0.0 % % (0.0-0.2) Absolute Neuts (auto) 4.54 10^3/uL 10^3/uL (1.70-6.50) Absolute Lymphs (auto) 0.71 10^3/uL L 10^3/uL (1.00-3.00) Absolute Monos (auto) 0.49 10^3/uL 10^3/uL (0.30-0.80) Absolute Eos (auto) 0.11 10^3/uL 10^3/uL (0.03-0.40) Absolute Basos (auto) 0.02 10^3/uL 10^3/uL (0.02-0.10) Absolute Nucleated RBC 0.00 10^3/uL 10^3/uL (0-0.01) Immature Gran % 0.3 % % (0.0-1.1) Immature Gran # 0.02 10^3/uL 10^3/uL (0.00-0.10) POC Sodium 144 mEq/L mEq/L (135-145) Sodium 142 mEq/L mEq/L (135-145) POC Potassium 3.5 mEq/L mEq/L (3.3-5.0) Potassium 3.8 mEq/L mEq/L (3.3-5.0) POC Chloride 109 mEq/L mEq/L (97-110) Chloride 108 mEq/L mEq/L (97-110) Carbon Dioxide 26 mEq/l mEq/l (22-31) Anion Gap 8 mEq/L mEq/L (6-14) POC BUN 11 mg/dL mg/dL (7-23) BUN 12 mg/dL mg/dL (7-23) Creatinine 0.6 mg/dL mg/dL (0.6-1.0) POC Creatinine 0.6 mg/dL mg/dL (0.6-1.0) Estimated GFR > 60 Glucose 90 mg/dL mg/dL (70-100) POC Glucose 86 mg/dL mg/dL (70-100) Calcium 9.9 mg/dL mg/dL (8.5-10.4) Total Bilirubin 1.9 mg/dL H mg/dL (0.1-1.4) Conjugated Bilirubin 0.6 mg/dL H mg/dL (0.0-0.5) Unconjugated Bilirubin 1.3 mg/dL H mg/dL (0.0-1.1) AST 74 IU/L H IU/L (14-46) ALT 62 IU/L H IU/L (9-52) Alkaline Phosphatase 178 IU/L H IU/L (38-126) Total Protein 6.6 g/dL g/dL (6.3-8.2) Albumin 3.9 g/dL g/dL (3.5-5.0) Lipase 426 IU/L H IU/L (23-300) Medications Given: Discontinued Medications Sodium Chloride (Ns) 1,000 mls @ 0 mls/hr IV EDNOW ONE; Wide Open PRN Reason: Protocol Stop: 02/03/18 18:50 Last Admin: 02/03/18 19:14 Dose: 1,000 mls Ondansetron HCl (Zofran) 4 mg IVP EDNOW ONE Stop: 02/03/18 18:50 Last Admin: 02/03/18 19:14 Dose: 4 mg Pantoprazole Sodium (Protonix) 40 mg IVP EDNOW ONE Stop: 02/03/18 19:15 Last Admin: 02/03/18 19:18 Dose: 40 mg Point of Care Test Results: Chemistry 02/03/18 19:27 POC Sodium 144 mEq/L mEq/L (135-145) POC Potassium 3.5 mEq/L mEq/L (3.3-5.0) POC Chloride 109 mEq/L mEq/L (97-110) POC BUN 11 mg/dL mg/dL (7-23) POC Creatinine 0.6 mg/dL mg/dL (0.6-1.0) POC Glucose 86 mg/dL mg/dL (70-100) ISTAT H&H 02/03/18 19:27 POC Hgb 14.3 gm/dL gm/dL (12.6-16.3) POC Hct 42 % % (38-47) Departure - Departure Disposition: [facility] Inpatient Acute Clinical Impression: Abdominal pain Qualifiers: Abdominal location: epigastric Qualified Code(s): R10.13 - Epigastric pain Condition: Fair
[2018-02-03 19:40] LABS: PLATELET COUNT 103 10^3/uL (150-400)
[2018-02-03] MEDS ORDERED: ONDANSETRON DISINTEGRATING 4 MG TAB PO PRN (20:19)
[2018-02-03] MEDS ORDERED: PROMETHAZINE HCL 25 MG/ML INJ IVP PRN (20:19)
[2018-02-03] MEDS ORDERED: ONDANSETRON 4 MG/2 ML VIAL IVP PRN (20:19)
--- NOTE | 2018-02-03 20:31 | PDGENHP ---
History and Physical - Chief Complaint Abdominal Pain, Nausea - History of Present Illness Sandra Mack is a 68 yo F with a PMHx of CAD, A Fib s/p PPM, migraines, cirrhosis , UGIB 2/2 duodenal ulcer who presents to [facility] for abdominal pain and nausea. Patient reports that symptoms started yesterday. She is homeless and lives at a half-way where they provide food. She does not believe anyone else has been ill. She also reports episodes of diarrhea as well. She denies any melena, hematochezia, chest pain, SOB, f/c. History Information - Allergies/Home Medication List Allergies/Adverse Reactions: codeine Allergy (Verified 01/23/18 19:55) meperidine HCl [From Demerol] Allergy (Verified 01/23/18 19:55) methadone [Methadone] Allergy (Verified 01/23/18 19:55) morphine Allergy (Verified 01/23/18 19:55) nalbuphine HCl [From Nubain] Allergy (Verified 01/23/18 19:55) Home Medications: LaMICtal 09/29/17 [Last Taken Unknown] Oxybutynin 09/29/17 [Last Taken Unknown] Zofran 09/29/17 [Last Taken Unknown] Lexapro 02/03/18 [Last Taken Unknown] Lomotil Tab (*) 02/03/18 [Last Taken Unknown] Maxalt 02/03/18 [Last Taken Unknown] Omeprazole 02/03/18 [Last Taken Unknown] Xifaxan 200mg (*) 02/03/18 [Last Taken Unknown] I have personally reviewed and updated: family history, medical history, social history, surgical history - Past Medical History atrial fibrillation, coronary artery disease, GI bleed - Surgical History Reports: no pertinent surgical hx - Family History Positive for: non-pertinent - Social History Smoking Status: Current every day smoker Alcohol Use: None Drug Use: None Review of Systems Review of Systems: ROS: 10pt was reviewed & negative except for what was stated in HPI & below Physical Exam Physical Exam: Temp Pulse Resp BP Pulse Ox 36.3 C 88 18 155/81 H 98 02/03/18 18:58 02/03/18 18:58 02/03/18 18:58 02/03/18 18:58 02/03/18 18:58 Constitutional: chronically ill appearing, uncomfortable Eyes: PERRL Ears, Nose, Mouth, Throat: dry mucous membranes Cardiovascular: regular rate and rhythym Respiratory: no respiratory distress, clear to auscultation Gastrointestinal: tenderness, No guarding, No rebound Genitourinary: no bladder tenderness Skin: warm Musculoskeletal: no joint effusions Neurologic: AAOx3 Psychiatric: interacting appropriately Lab Data & Imaging Review 02/03/18 18:40 02/03/18 18:40 WBC 5.89 10^3/uL (3.80-9.50) 02/03/18 18:40 RBC 5.07 10^6/uL (4.18-5.33) 02/03/18 18:40 Hgb 13.0 g/dL (12.6-16.3) 02/03/18 18:40 POC Hgb 14.3 gm/dL (12.6-16.3) 02/03/18 19:27 Hct 41.5 % (38.0-47.0) 02/03/18 18:40 POC Hct 42 % (38-47) 02/03/18 19:27 MCV 81.9 fL (81.5-99.8) 02/03/18 18:40 MCH 25.6 pg (27.9-34.1) L 02/03/18 18:40 MCHC 31.3 g/dL (32.4-36.7) L 02/03/18 18:40 RDW 18.9 % (11.5-15.2) H 02/03/18 18:40 Plt Count 103 10^3/uL (150-400) L 02/03/18 18:40 MPV 11.3 fL (8.7-11.7) 02/03/18 18:40 Neut % (Auto) 77.1 % (39.3-74.2) H 02/03/18 18:40 Lymph % (Auto) 12.1 % (15.0-45.0) L 02/03/18 18:40 Linn % (Auto) 8.3 % (4.5-13.0) 02/03/18 18:40 Eos % (Auto) 1.9 % (0.6-7.6) 02/03/18 18:40 Baso % (Auto) 0.3 % (0.3-1.7) 02/03/18 18:40 Nucleat RBC Rel Count 0.0 % (0.0-0.2) 02/03/18 18:40 Absolute Neuts (auto) 4.54 10^3/uL (1.70-6.50) 02/03/18 18:40 Absolute Lymphs (auto) 0.71 10^3/uL (1.00-3.00) L 02/03/18 18:40 Absolute Monos (auto) 0.49 10^3/uL (0.30-0.80) 02/03/18 18:40 Absolute Eos (auto) 0.11 10^3/uL (0.03-0.40) 02/03/18 18:40 Absolute Basos (auto) 0.02 10^3/uL (0.02-0.10) 02/03/18 18:40 Absolute Nucleated RBC 0.00 10^3/uL (0-0.01) 02/03/18 18:40 Immature Gran % 0.3 % (0.0-1.1) 02/03/18 18:40 Immature Gran # 0.02 10^3/uL (0.00-0.10) 02/03/18 18:40 POC Sodium 144 mEq/L (135-145) 02/03/18 19:27 Sodium 142 mEq/L (135-145) 02/03/18 18:40 POC Potassium 3.5 mEq/L (3.3-5.0) 02/03/18 19:27 Potassium 3.8 mEq/L (3.3-5.0) 02/03/18 18:40 POC Chloride 109 mEq/L (97-110) 02/03/18 19:27 Chloride 108 mEq/L (97-110) 02/03/18 18:40 Carbon Dioxide 26 mEq/l (22-31) 02/03/18 18:40 Anion Gap 8 mEq/L (6-14) 02/03/18 18:40 POC BUN 11 mg/dL (7-23) 02/03/18 19:27 BUN 12 mg/dL (7-23) 02/03/18 18:40 Creatinine 0.6 mg/dL (0.6-1.0) 02/03/18 18:40 POC Creatinine 0.6 mg/dL (0.6-1.0) 02/03/18 19:27 Estimated GFR > 60 02/03/18 18:40 Glucose 90 mg/dL (70-100) 02/03/18 18:40 POC Glucose 86 mg/dL (70-100) 02/03/18 19:27 Calcium 9.9 mg/dL (8.5-10.4) 02/03/18 18:40 Total Bilirubin 1.9 mg/dL (0.1-1.4) H 02/03/18 18:40 Conjugated Bilirubin 0.6 mg/dL (0.0-0.5) H 02/03/18 18:40 Unconjugated Bilirubin 1.3 mg/dL (0.0-1.1) H 02/03/18 18:40 AST 74 IU/L (14-46) H 02/03/18 18:40 ALT 62 IU/L (9-52) H 02/03/18 18:40 Alkaline Phosphatase 178 IU/L (38-126) H 02/03/18 18:40 Total Protein 6.6 g/dL (6.3-8.2) 02/03/18 18:40 Albumin 3.9 g/dL (3.5-5.0) 02/03/18 18:40 Lipase 426 IU/L (23-300) H 02/03/18 18:40 Assessment & Plan Assessment: Abdominal pain (Acute) - Differential includes gastritis, gastroenteritis, PUD, pancreatitis - She is s/p cholecystectomy - Lipase 426 on admission - S/p PPI IV and Zofran in ED - Continue IV PPI BID, antiemetics PRN - Will order CT A/P to further evaluate - Keep NPO for now Hx GIB 2/2 Duodenal Ulcer - H/H remains stable, no hematochezia, melena, Hgb 13 on admission - No signs of bleeding, although patient reports similar pain to PUD episode - Continue to monitor H/H, if downtrending or s/s of bleeding, consult GI in the AM for further evaluation, possible EGD Transaminitis/Cirrhosis - T Bili, AST, ALT elevated, appears elevated in the past in setting of cirrhosis - Continue to monitor LFTs - Continue home Rifaximin Depression - Continue home Lexapro when med rec completed FEN: Continue IVF overnight, NPO Code: FULL Ppx: Lovenox Dispo: Admit to Observation, pending clinical course
[2018-02-03] MEDS ORDERED: IOPAMIDOL (ISOVUE-300) 100 ML BTL ONE (20:44)
[2018-02-03] MEDS ORDERED: NS 1,000 ML IV SCH (20:45)
[2018-02-03] MEDS: PANTOPRAZOLE SODIUM 40 MG VIAL IVP SCH (22:33)
[2018-02-04 05:08] LABS: PLATELET COUNT 62 10^3/uL (150-400)
--- NOTE | 2018-02-04 07:52 | ASMTLACE ---
LEYDA Comorbidities - select Answers: Coronary Artery Disease all that apply Dementia Diabetes (uncontrolled or controlled) Previous myocardial infarction Other Notes: AFib; Cirrhosis; Ulcers # of Emergency department Answers: 5-8 visits in the last 6 months Social determinants Answers: History of substance abuse (ETOH, street drugs, prescription drugs, etc.) Homelessness (street, skilled nursing) Mental health diagnosis (anxiety, depression, pers onality disorders, etc.) Score: 21 Date Signed: 02/04/2018 07:52 AM Electronically Signed By:Saumya Allison
[2018-02-04] MEDS: RIFAXIMIN 550 MG TAB PO SCH ×2 (10:08→20:52)
[2018-02-04] MEDS: PANTOPRAZOLE SODIUM 40 MG VIAL IVP SCH ×2 (10:08→20:51)
[2018-02-04] MEDS: ESCITALOPRAM OXALATE 10 MG TAB PO SCH (10:08)
[2018-02-04] MEDS: PANTOPRAZOLE SODIUM 40 MG TAB PO SCH (10:12)
[2018-02-04] MEDS ORDERED: LIDOCAINE 2% VISCOUS 15 ML UDCUP PO ONE (10:30)
[2018-02-04] MEDS ORDERED: MAG HYDROX/AL HYDROX/SIMETH 30 ML UDCUP PO ONE (10:30)
[2018-02-04] MEDS ORDERED: HYOSCYAMINE SULFATE 0.125 MG TAB PO ONE (10:30)
[2018-02-04] MEDS: OXYBUTYNIN 5 MG EXT REL TAB PO SCH (11:09)
[2018-02-04] MEDS: lamoTRIgine 25 MG TAB PO SCH ×2 (11:10→20:51)
[2018-02-04] MEDS: Rizatriptan Benzoate [Maxalt Mlt] 10 MG PO PRN (11:18)
[2018-02-04 11:23] LABS: INR 1.15 (0.83-1.16); PROTIME(PATIENT) 14.9 SEC (12.0-15.0)
--- NOTE | 2018-02-04 13:21 | HOSPPROG ---
Hospitalist Progress Note Assessment/Plan: #Mild pancreatitis: denies Etoh, no biliary dilation. Possibly gastritis. Trial GI cocktail. Nothing remarkable on CT. ADAT #Migraine: home meds #Homelessness: [facility], assisting #h/o billiary cirrhosis: portal HTN on US. Needs FU with Dr. Wise, GI #h/o duodenal ulcer: no active bleeding #Rash/lesions: not c/w shingles #Diet: ADAT #Disp: cont inpatient care for pain control, IVFs Subjective: epigastric pain. Denies etoh Objective: Vital Signs Temp Pulse Resp BP Pulse Ox 36.7 C 84 18 158/99 H 92 02/04/18 11:44 02/04/18 11:44 02/04/18 11:44 02/04/18 11:44 02/04/18 11:44 Laboratory Results 02/04/18 04:16 02/04/18 04:16 02/03/18 02/04/18 02/05/18 05:59 05:59 05:59 Intake Total 1950 Balance 1950 PT 14.9 SEC (12.0-15.0) 02/04/18 11:02 INR 1.15 (0.83-1.16) 02/04/18 11:02 - Time Spent With Patient Time Spent with Patient: greater than 35 minutes Time Spent with Patient: Greater than 35 minutes spent on this patients care, greater than 50% of time spent counseling, educating, and coordinating care regarding the above mentioned plan. - Physical Exam Constitutional: no apparent distress Ears, Nose, Mouth, Throat: moist mucous membranes Cardiovascular: regular rate and rhythym Respiratory: no respiratory distress Gastrointestinal: other (epigastric TTP, mild), No guarding, No rebound Genitourinary: no bladder fullness Skin: warm, other (scab excoriations over lower back and buttock. No ulcerations ) Musculoskeletal: full muscle strength Neurologic: AAOx3, CN II-XII Intact Psychiatric: interacting appropriately ICD10 Worksheet Patient Problems: Problems Problem Status Onset Abdominal pain Acute Chest pain Acute GI bleed Acute Pneumonia Acute
--- NOTE | 2018-02-04 14:01 | ASMTCMCOM ---
CM Note CM Note Notes: Patient plan of care reviewed in rounds. She is homeless and currently stays in a senior living. She verbalized that she was informed by a nurse she would be eligible for SNF. The doctor informed patient she is not likely to meet criteria for LTC at this point. CM to follow for needs. Plan: TBD likely to senior living. Date Signed: 02/04/2018 02:00 PM Electronically Signed By:Trixie Leonardo RN
[2018-02-04] MEDS ORDERED: PNEUMOCOCCAL 0.5ML VACCINE VIAL (PNEUMOVAX 23) IM ONE (15:21)
[2018-02-04] MEDS ORDERED: PNEUMOC 13-VAL CONJ-DIP CRM/PF 0.5 ML SYR (PREVNAR 13) IM ONE ×2 (15:34→20:00)
[2018-02-04] MEDS: ACETAMINOPHEN 325 MG TAB PO PRN (16:35)
[2018-02-05] MEDS: ESCITALOPRAM OXALATE 10 MG TAB PO SCH (08:28)
[2018-02-05] MEDS: OXYBUTYNIN 5 MG EXT REL TAB PO SCH (08:28)
[2018-02-05] MEDS: lamoTRIgine 25 MG TAB PO SCH ×2 (08:28→20:06)
[2018-02-05] MEDS: RIFAXIMIN 550 MG TAB PO SCH ×2 (08:29→20:06)
[2018-02-05] MEDS: PANTOPRAZOLE SODIUM 40 MG VIAL IVP SCH ×2 (09:55→22:31)
[2018-02-05] MEDS: PANTOPRAZOLE SODIUM 40 MG TAB PO SCH (09:55)
--- NOTE | 2018-02-05 10:02 | PDMN ---
Medical Necessity Medical necessity: MCG: M05 abd pain undg: mild pancreatitis ( Lipase 426) , , poss. gastritis, PMHx biliary cirrhosis, portal HTN on US, status changed to INPT 02/04/18 for ongoing abd pain, IV Zofran, IV protonix, > 2 MN ongoing care needed. pt is homeless currently staying in assisted.
[2018-02-05] MEDS: Rizatriptan Benzoate [Maxalt Mlt] 10 MG PO PRN (15:52)
--- NOTE | 2018-02-05 16:18 | HOSPPROG ---
Hospitalist Progress Note Assessment/Plan: #Mild pancreatitis: resolved. Denies Etoh, no biliary dilation. Possibly gastritis. #Migraine: home meds #Homelessness: [facility]. CM assisting with long-term care #h/o billiary cirrhosis: portal HTN on US. Needs FU with Dr. Wise, GI #h/o duodenal ulcer: no active bleeding #Rash/lesions: not c/w shingles #Diet: ADAT #Disp: cont inpatient care for pain control, CM assisting with placement Subjective: abd pain improved, tolerating PO Objective: Vital Signs Temp Pulse Resp BP Pulse Ox 36.6 C 82 16 170/86 H 93 02/05/18 14:51 02/05/18 14:51 02/05/18 14:51 02/05/18 14:51 02/05/18 14:51 02/04/18 02/05/18 02/06/18 05:59 05:59 05:59 Intake Total 1700 Balance 1700 PT 14.9 SEC (12.0-15.0) 02/04/18 11:02 INR 1.15 (0.83-1.16) 02/04/18 11:02 - Time Spent With Patient Time Spent with Patient: greater than 35 minutes Time Spent with Patient: Greater than 35 minutes spent on this patients care, greater than 50% of time spent counseling, educating, and coordinating care regarding the above mentioned plan. - Physical Exam Constitutional: no apparent distress Eyes: PERRL Ears, Nose, Mouth, Throat: moist mucous membranes Cardiovascular: regular rate and rhythym Respiratory: no respiratory distress Gastrointestinal: tenderness (mild epigastric TTP) Genitourinary: no bladder fullness Skin: warm, other (scabbed lesion over lower back, buttock. No vesicles) Musculoskeletal: full muscle strength Neurologic: AAOx3, CN II-XII Intact Psychiatric: interacting appropriately ICD10 Worksheet Patient Problems: Problems Problem Status Onset Abdominal pain Acute Chest pain Acute GI bleed Acute Pneumonia Acute
[2018-02-05] MEDS: PROMETHAZINE HCL 25 MG TAB PO PRN (20:08)
[2018-02-06] MEDS: ESCITALOPRAM OXALATE 10 MG TAB PO SCH (08:46)
[2018-02-06] MEDS: RIFAXIMIN 550 MG TAB PO SCH ×2 (08:46→20:06)
[2018-02-06] MEDS: OXYBUTYNIN 5 MG EXT REL TAB PO SCH (08:46)
[2018-02-06] MEDS: lamoTRIgine 25 MG TAB PO SCH ×2 (08:46→20:06)
[2018-02-06] MEDS: PANTOPRAZOLE SODIUM 40 MG TAB PO SCH (08:46)
--- NOTE | 2018-02-06 16:07 | HOSPPROG ---
Hospitalist Progress Note Assessment/Plan: # abd pain - suspect pancreatitis, but no clear risk factor; also considering gastritis - will change to NPO for today and reassess tomorrow # cirrhosis - rifaximin - needs GI f/u # homelessness - planning on SNF on dc # migraine - home meds # hx duodenal ulcer # dvt ppx - lovenox Subjective: still having some abd pain but overall better; worse with PO Objective: Vital Signs Temp Pulse Resp BP Pulse Ox 36.8 C 78 16 149/80 H 95 02/06/18 12:29 02/06/18 12:29 02/06/18 12:29 02/06/18 12:29 02/06/18 12:29 Laboratory Results 02/06/18 05:34 02/05/18 02/06/18 02/07/18 05:59 05:59 05:59 Intake Total 1700 800 Output Total 200 Balance 1700 600 PT 14.9 SEC (12.0-15.0) 02/04/18 11:02 INR 1.15 (0.83-1.16) 02/04/18 11:[address] US and CT reviewed - Physical Exam Constitutional: no apparent distress, appears nourished Cardiovascular: regular rate and rhythym, no murmur, rub, or gallop Respiratory: no respiratory distress, no rales or rhonchi, clear to auscultation Gastrointestinal: normoactive bowel sounds, other (soft, TTP LUQ), No guarding, No rebound, No distension ICD10 Worksheet Patient Problems: Problems Problem Status Onset GI bleed Acute Chest pain Acute Pneumonia Acute Abdominal pain Acute
[2018-02-06] MEDS ORDERED: LR 1,000 ML IV SCH (16:30)
--- NOTE | 2018-02-06 16:56 | ASMTCMCOM ---
CM Note CM Note Notes: Patient plan of care reviewed in rounds. 68 year old homeless woman currently staying at [facility] and is reportedly on "The path to home". I attempted to clarify where she was in housing lottery and if she had needs to fill out any more paper work. I have sent in a ULTC 100, she already has [facility] medicaid in place. She also has Medicare. I have sent referrals too SNF's but the patient is resistant to go to SNF as she has a pet dog currently in the care of an unknown republican. She have a nurse Marianne Brian [phone]. Marianne denies possession of the dog but knows where the dog is but won't disclose the location. If she refuses to go to SNF she will have to discharge to the streets. Plan: TBD Date Signed: 02/06/2018 04:55 PM Electronically Signed By:Trixie Leonardo RN
[2018-02-06] MEDS: Rizatriptan Benzoate [Maxalt Mlt] 10 MG PO PRN (20:30)
[2018-02-07 04:41] LABS: PLATELET COUNT 77 10^3/uL (150-400)
[2018-02-07] MEDS ORDERED: ENOXAPARIN 40 MG/0.4 ML SYR SC SCH (09:00)
[2018-02-07] MEDS: ESCITALOPRAM OXALATE 10 MG TAB PO SCH (10:07)
[2018-02-07] MEDS: PANTOPRAZOLE SODIUM 40 MG TAB PO SCH (10:30)
[2018-02-07] MEDS: OXYBUTYNIN 5 MG EXT REL TAB PO SCH (10:30)
[2018-02-07] MEDS: lamoTRIgine 25 MG TAB PO SCH ×2 (10:30→21:39)
[2018-02-07] MEDS: RIFAXIMIN 550 MG TAB PO SCH ×2 (10:30→21:39)
[2018-02-07] MEDS: Rizatriptan Benzoate [Maxalt Mlt] 10 MG PO PRN (10:32)
--- NOTE | 2018-02-07 12:07 | HOSPPROG ---
Hospitalist Progress Note Assessment/Plan: # abd pain - unsure if this represents pancreatitis (lipase normal today) or gastritis; better today, wants to eat # cirrhosis - rifaximin, restart lactulose - she repts d/t steatosis - needs GI f/u # bipolar - cont lamictal and lexapro; low dose klonopin started today, follow mental status closely # pancytopenia - likely d/t cirrhosis # homelessness - planning on SNF on dc # migraine - home meds # hx duodenal ulcer # dvt ppx - SCDs, no lovenox with low plts Subjective: feels depressed today; still some lingering abd pain, but very hungry Objective: Vital Signs Temp Pulse Resp BP Pulse Ox 36.5 C 80 14 132/87 H 94 02/07/18 07:19 02/07/18 07:19 02/07/18 07:19 02/07/18 07:19 02/07/18 07:19 Laboratory Results 02/07/18 04:18 02/07/18 04:18 02/06/18 02/07/18 02/08/18 05:59 05:59 05:59 Intake Total 800 500 Output Total 200 600 Balance 600 -100 PT 14.9 SEC (12.0-15.0) 02/04/18 11:02 INR 1.15 (0.83-1.16) 02/04/18 11:02 - Physical Exam Constitutional: no apparent distress Ears, Nose, Mouth, Throat: hearing normal Cardiovascular: regular rate and rhythym, no murmur, rub, or gallop Respiratory: no respiratory distress, no rales or rhonchi, clear to auscultation Gastrointestinal: soft, non-tender abdomen, no palpable masses, No guarding, No rebound, No distension Psychiatric: depressed ICD10 Worksheet Patient Problems: Problems Problem Status Onset GI bleed Acute Chest pain Acute Pneumonia Acute Abdominal pain Acute
[2018-02-07] MEDS: clonazePAM 0.5 MG TAB PO SCH (12:09)
[2018-02-07] MEDS: NICOTINE 21 MG/24 HR PATCH TD SCH (12:09)
[2018-02-07] MEDS: LACTULOSE 20 GM/30 ML UDCUP PO SCH ×3 (12:09→21:47)
[2018-02-07] MEDS: ONDANSETRON DISINTEGRATING 4 MG TAB PO PRN (19:35)
[2018-02-07] MEDS: PROMETHAZINE HCL 25 MG TAB PO PRN (21:48)
[2018-02-07] MEDS ORDERED: BISACODYL 10 MG SUPP PR PRN (23:30)
[2018-02-08] MEDS: RIFAXIMIN 550 MG TAB PO SCH ×2 (08:36→22:02)
[2018-02-08] MEDS: lamoTRIgine 25 MG TAB PO SCH ×2 (08:36→22:01)
[2018-02-08] MEDS: PANTOPRAZOLE SODIUM 40 MG TAB PO SCH (08:36)
[2018-02-08] MEDS: OXYBUTYNIN 5 MG EXT REL TAB PO SCH (08:37)
[2018-02-08] MEDS: LACTULOSE 20 GM/30 ML UDCUP PO SCH ×3 (08:37→22:01)
[2018-02-08] MEDS: ESCITALOPRAM OXALATE 10 MG TAB PO SCH (08:37)
[2018-02-08] MEDS: clonazePAM 0.5 MG TAB PO SCH (08:37)
[2018-02-08] MEDS: NICOTINE 21 MG/24 HR PATCH TD SCH (08:37)
--- NOTE | 2018-02-08 10:31 | HOSPPROG ---
Hospitalist Progress Note Assessment/Plan: 68F, homeless, presents with abd pain. Overall better today with conservative management. # abd pain - unsure if this represents pancreatitis (lipase normal today) or gastritis; also possibly d/t constipation # cirrhosis - rifaximin, lactulose - she reports d/t steatosis - needs GI f/u as outpatient # bipolar - cont lamictal and lexapro; low dose klonopin started yesterday ( had been on as outpatient) # pancytopenia - likely d/t cirrhosis # homelessness - planning on SNF on dc; CM working on [id number] # migraine - home meds # hx duodenal ulcer # dvt ppx - SCDs, no lovenox with low plts Subjective: had BM yesterday; abd pain better today; eating well; still depressed Objective: Vital Signs Temp Pulse Resp BP Pulse Ox 36.8 C 99 14 146/76 H 92 02/08/18 07:26 02/08/18 07:26 02/08/18 07:26 02/08/18 07:26 02/08/18 07:26 Laboratory Results 02/07/18 04:18 02/07/18 04:18 02/07/18 02/08/18 02/09/18 05:59 05:59 05:59 Intake Total 500 200 Output Total 600 650 Balance -100 -450 PT 14.9 SEC (12.0-15.0) 02/04/18 11:02 INR 1.15 (0.83-1.16) 02/04/18 11:02 AXR personally reviewed - Physical Exam Constitutional: no apparent distress, appears nourished Cardiovascular: regular rate and rhythym, no murmur, rub, or gallop Respiratory: no respiratory distress, no rales or rhonchi, clear to auscultation Gastrointestinal: normoactive bowel sounds, soft, non-tender abdomen, no palpable masses, No guarding, No rebound ICD10 Worksheet Patient Problems: Problems Problem Status Onset GI bleed Acute Chest pain Acute Pneumonia Acute Abdominal pain Acute
[2018-02-08] MEDS: ACETAMINOPHEN 325 MG TAB PO PRN (12:09)
[2018-02-08] MEDS: ONDANSETRON DISINTEGRATING 4 MG TAB PO PRN (12:09)
[2018-02-08] MEDS: PROMETHAZINE HCL 25 MG TAB PO PRN (13:50)
[2018-02-08] MEDS: Rizatriptan Benzoate [Maxalt Mlt] 10 MG PO PRN (22:09)
[2018-02-09] MEDS: lamoTRIgine 25 MG TAB PO SCH ×2 (08:22→21:57)
[2018-02-09] MEDS: LACTULOSE 20 GM/30 ML UDCUP PO SCH ×3 (08:22→21:59)
[2018-02-09] MEDS: clonazePAM 0.5 MG TAB PO SCH (08:23)
[2018-02-09] MEDS: ESCITALOPRAM OXALATE 10 MG TAB PO SCH (08:23)
[2018-02-09] MEDS: PANTOPRAZOLE SODIUM 40 MG TAB PO SCH (08:23)
[2018-02-09] MEDS: RIFAXIMIN 550 MG TAB PO SCH ×2 (08:23→21:58)
[2018-02-09] MEDS: OXYBUTYNIN 5 MG EXT REL TAB PO SCH (08:23)
[2018-02-09] MEDS: NICOTINE 21 MG/24 HR PATCH TD SCH (08:24)
--- NOTE | 2018-02-09 10:44 | HOSPPROG ---
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 Dorsey as outpatient * Hepatic encephalopathy - chronic -has trouble with compliance with lactulose due to homeless situation -continue lactulose + Rifaximin * h/o bleeding DU requiring IR embolization -continue PPI * Bipolar -home meds - lamictal, lexapro, klonopin * Pancytopenia -due to cirrhosis * Pacemaker - cardiac history unclear Subjective: Still with abdominal pain - no better than when she arrived, now abd much more distended, no BM since enema despite TID lactulose Objective: Vital Signs Temp Pulse Resp BP Pulse Ox 36.6 C 89 16 161/86 H 94 02/09/18 09:20 02/09/18 09:20 02/09/18 09:20 02/09/18 09:20 02/09/18 09:20 Laboratory Results 02/07/18 04:18 02/07/18 04:18 02/08/18 02/09/18 02/10/18 05:59 05:59 05:59 Intake Total 200 Output Total 650 500 Balance -450 -500 PT 14.9 SEC (12.0-15.0) 02/04/18 11:02 INR 1.15 (0.83-1.16) 02/04/18 11:[address] reviewed - negative abd us - possible pancreatitis AXR viewed, my personal interpretation is - no obstruction, FOS - Physical Exam Constitutional: no apparent distress, appears nourished, not in pain Cardiovascular: regular rate and rhythym, no murmur, rub, or gallop Respiratory: no respiratory distress, no rales or rhonchi, clear to auscultation Gastrointestinal: ascites, distension, No tenderness, No guarding, No rebound Skin: no rashes or abrasions, no fluctuance, no induration Neurologic: AAOx3, sensation intact bilaterally Psychiatric: interacting appropriately, not anxious, not encephalopathic, thought process linear ICD10 Worksheet Patient Problems: Problems Problem Status Onset Abdominal pain Acute Chest pain Acute GI bleed Acute Pneumonia Acute
[2018-02-09] MEDS ORDERED: POLYETHYLENE GLYCOL 3350 17 GM PKT PO PRN (12:52)
[2018-02-09] MEDS ORDERED: BISACODYL 10 MG SUPP PR PRN (12:52)
[2018-02-09] MEDS ORDERED: LACTULOSE 20 GM/30 ML UDCUP PO PRN (12:52)
[2018-02-09] MEDS ORDERED: MAGNESIUM HYDROXIDE 30 ML UDCUP PO PRN (12:52)
--- NOTE | 2018-02-09 12:55 | ASMTCMCOM ---
CM Note CM Note Notes: Patient plan of care reviewed in rounds. She is now agreeable to possibility of SNF without her dog. She wants to go somewhere in [place] preferably Resent referrals to [facility] and [facility] via [facility]scripts. CM to follow. Plan: To SNF Date Signed: 02/09/2018 12:54 PM Electronically Signed By:Trixie Leonardo RN
[2018-02-09] MEDS: SENNOSIDES/DOCUSATE SODIUM TAB PO SCH ×2 (13:26→21:57)
[2018-02-10] MEDS: Rizatriptan Benzoate [Maxalt Mlt] 10 MG PO PRN (04:25)
[2018-02-10 05:50] LABS: PLATELET COUNT 81 10^3/uL (150-400)
[2018-02-10] MEDS: OXYBUTYNIN 5 MG EXT REL TAB PO SCH (09:01)
[2018-02-10] MEDS: RIFAXIMIN 550 MG TAB PO SCH ×2 (09:01→20:11)
[2018-02-10] MEDS: NICOTINE 21 MG/24 HR PATCH TD SCH (09:01)
[2018-02-10] MEDS: lamoTRIgine 25 MG TAB PO SCH ×2 (09:02→20:11)
[2018-02-10] MEDS: SENNOSIDES/DOCUSATE SODIUM TAB PO SCH ×2 (09:02→20:11)
[2018-02-10] MEDS: ESCITALOPRAM OXALATE 10 MG TAB PO SCH (09:03)
[2018-02-10] MEDS: PANTOPRAZOLE SODIUM 40 MG TAB PO SCH (09:03)
[2018-02-10] MEDS: clonazePAM 0.5 MG TAB PO SCH (09:03)
[2018-02-10] MEDS: LACTULOSE 20 GM/30 ML UDCUP PO SCH ×4 (09:03→23:05)
--- NOTE | 2018-02-10 10:24 | PDIAF ---
- Diagnosis Diagnosis: liver 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, constipation Code Status: Full Code - Medication Management Discharge Medications: electronically signed and located in the Home Medication List. - Orders Services needed: Physical Therapy, Occupational Therapy Isolation Type: None Diet Recommendation: no restrictions on diet Diet Texture: Regular Texture Diet - Follow Up Care Current Providers and Referrals: Patient,NotPresent [Unknown] - As per Instructions Joel Dorsey [Medical Doctor] - follow up in 2 weeks (Hepatology follow-up)
--- NOTE | 2018-02-10 13:14 | ASMTCMCOM ---
CM Note CM Note Notes: Plan of care reviewed with this am. Medicallly cleared for discharge per MD. PASRR triggered and screen completed by JOSHUA Son the liason is aware and ensuring that authorization is in place. Plan wheelchair transport to [place]. Date Signed: 02/10/2018 01:13 PM Electronically Signed By:Trixie Leonardo RN
[2018-02-10] MEDS: PROPRANOLOL HCL 10 MG TAB PO SCH ×2 (15:50→23:05)
--- NOTE | 2018-02-10 16:29 | ASMTCMCOM ---
CM Note CM Note Notes: [facility] is unable to accept patient's medicare as it is [employer]. I have sent updates to [facility] and also spoke to [facility]. Awaiting return information. Dc will need to be held . Date Signed: 02/10/2018 04:28 PM Electronically Signed By:Trixie Leonardo RN
--- NOTE | 2018-02-10 17:14 | HOSPPROG ---
Hospitalist Progress Note Assessment/Plan: * Constipation -resolved, now stooling * Possible acute pancreatitis -s/p jerson, denies Etoh -lipase normalized * Liver 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 -sees Dr. Dorsey as outpatient * Hepatic encephalopathy - chronic -has trouble with compliance with lactulose due to homeless situation -continue lactulose + Rifaximin * h/o bleeding DU requiring IR embolization -continue PPI * Bipolar -home meds - lamictal, lexapro, klonopin * Pancytopenia -due to cirrhosis * Pacemaker - cardiac history unclear Subjective: Had tons of stool all day yesterday Objective: Vital Signs Temp Pulse Resp BP Pulse Ox 36.6 C 89 18 138/68 H 92 02/10/18 16:02 02/10/18 16:02 02/10/18 16:02 02/10/18 16:02 02/10/18 16:02 Laboratory Results 02/10/18 04:20 02/07/18 04:18 02/09/18 02/10/18 02/11/18 05:59 05:59 05:59 Intake Total 850 Output Total 500 Balance -500 850 PT 14.9 SEC (12.0-15.0) 02/04/18 11:02 INR 1.15 (0.83-1.16) 02/04/18 11:02 - Physical Exam Constitutional: no apparent distress, appears nourished, not in pain Cardiovascular: regular rate and rhythym, no murmur, rub, or gallop Respiratory: no respiratory distress, no rales or rhonchi, clear to auscultation Gastrointestinal: normoactive bowel sounds, soft, non-tender abdomen, no palpable masses Skin: no rashes or abrasions, no fluctuance, no induration Neurologic: AAOx3, sensation intact bilaterally Psychiatric: interacting appropriately, not anxious, not encephalopathic, thought process linear ICD10 Worksheet Patient Problems: Problems Problem Status Onset GI bleed Acute Chest pain Acute Pneumonia Acute Abdominal pain Acute
[2018-02-11] MEDS: ACETAMINOPHEN 325 MG TAB PO PRN (03:30)
[2018-02-11] MEDS: Rizatriptan Benzoate [Maxalt Mlt] 10 MG PO PRN (03:33)
[2018-02-11] MEDS: PANTOPRAZOLE SODIUM 40 MG TAB PO SCH (09:47)
[2018-02-11] MEDS: ESCITALOPRAM OXALATE 10 MG TAB PO SCH (09:47)
[2018-02-11] MEDS: RIFAXIMIN 550 MG TAB PO SCH (09:48)
[2018-02-11] MEDS: LACTULOSE 20 GM/30 ML UDCUP PO SCH (09:48)
[2018-02-11] MEDS: OXYBUTYNIN 5 MG EXT REL TAB PO SCH (09:48)
[2018-02-11] MEDS: lamoTRIgine 25 MG TAB PO SCH (09:48)
[2018-02-11] MEDS: NICOTINE 21 MG/24 HR PATCH TD SCH (09:50)
[2018-02-11] MEDS: SENNOSIDES/DOCUSATE SODIUM TAB PO SCH (10:11)
[2018-02-11 10:21] VITALS: BP 153/74
[2018-02-11] MEDS: clonazePAM 0.5 MG TAB PO SCH (10:22)
[2018-02-11] MEDS: PROPRANOLOL HCL 10 MG TAB PO SCH (10:22)
--- NOTE | 2018-02-11 11:51 | ASMTCMCOM ---
CM Note CM Note Notes: Patient reports to RN this am that she is going to be cooking Thanksgiving dinner for family in [place]. Upon further discussion during rounds with patient she has many friends in [place] with whom she could stay. She replies that she is to stay with a friend who's is on his way to pick her up. She also states that she has a follow up appointment with Dr. Barrios in [place]. When she was questioned about staying in the halfway instead of this living situation, she replied that her friend had gotten a new job. Plan: No further need for LTC or rehab. Dc to [facility], Date Signed: 02/11/2018 11:50 AM Electronically Signed By:Trixie Loenardo RN
--- NOTE | 2018-02-11 12:44 | ASMTDCNOTE ---
Case Management Discharge Discharge Order Complete? Answers: Yes Followup Appointment 02/16/2018 12:00 AM Patient to Obtain Answers: Independently Medications Discharge Comments Notes: Patient has elected to go live in [place] with ? family or friends. She reports that she is able to live with friends in [place] and no longer wants to go to SNF. She has a ride coming to pick her up. Date Signed: 02/11/2018 12:43 PM Electronically Signed By:Trixie Leonardo RN
--- NOTE | 2018-02-11 18:12 | GDS ---
DISCHARGE DIAGNOSES: 1. Acute pancreatitis. 2. Constipation. 3. Liver cirrhosis due to nonalcoholic steatohepatitis. 4. Chronic hepatic encephalopathy. 5. History of bleeding duodenal ulcer requiring previous IR embolization. 6. Bipolar. 7. Pancytopenia due to cirrhosis. 8. Pacemaker. HISTORY: This is a 68-year-old female with a history of liver 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. She sees Dr. Bentley willett as an outpatient. She presented with increased abdominal pain. Ultrasound did not show any as cites. There was some possible pancreatic inflammation. She did have a mildly elevated lipase. She has never been a drinker and she has also previously had a cholecystectomy, so etiology of this mild pancreatitis is unclear. Her lipase rapidly normalized. She subsequently had problems with severe constipation and had extreme abdominal bloating requiring multi days of laxatives to get her to start stooling. She is on chronic lactulose but admits to noncompliance as it is difficult to take the la ctulose while you are homeless. We resumed lactulose and got her stabilized on a regular regimen. She was previously homeless, she now has found multiple friends who are willing to take her in. She was discharged to 1 of her friend's homes who came and picked her up. She is hoping to stay with kim ious friends until her public housing can be arranged as it is pending. DISCHARGE MEDICATIONS: Please see computerized record for full detailed list. New medications: Prop ranolol LA 60 mg p.o. daily to treat both hypertension as well as prophylaxis given her cirrhosis. ADDITIONAL DISCHARGE INSTRUCTIONS: Follow up with Dr. Dorsey for hepatology. Greater than 30 minutes' time was spent arranging this discharge. Patient seen and examined by me on the day of discharge. /[id number]/[facility]
--- NOTE | 2018-02-12 09:29 | ASDISCHSUM ---
Discharge Information Plan Status:Home with No Needs Medically Cleared to Leave:02/10/2018 Discharge Date:02/11/2018 02:20 PM CM D/C Disposition:Home, Routine, Self-Care ADT D/C Disposition:Home, Routine, Self-Care Projected Discharge Date:02/05/2018 11:00 AM Transportation at D/C: Discharge Delay Reason: Follow-Up Date:02/05/2018 11:00 AM Discharge Slot: Final Diagnosis: Placement Information Referral Type:*Detention/SNF Referral ID:[id number] Provider Name: Address 1: Phone Number: Address 2: Fax Number: City: Selection Factors: State: Patient Contact Information Contact Name:JORGE Relationship: Address: Home Phone: Work Phone: City: Alternate Phone: [facility] Code: Email: Financial Information Financial Class:Medicare Advantage Plans Primary Plan Desc:LEONELA [employer]PENTER MEDICARE Primary Plan Number:[id number] Secondary Plan Desc:MEDICAID [place]ALTH [place] Secondary Plan Number:[id number] Assessment Information LACE LACE Comorbidities - select Answers: Coronary Artery Disease all that apply Dementia Diabetes (uncontrolled or controlled) Previous myocardial infarction Other Notes: AFib; Cirrhosis; Ulcers # of Emergency department Answers: 5-8 visits in the last 6 months Social determinants Answers: History of substance abuse (ETOH, street drugs, prescription drugs, etc.) Homelessness (street, long term) Mental health diagnosis (anxiety, depression, pers onality disorders, etc.) Score: 21 Date Signed: 02/04/2018 07:52 AM Electronically Signed By:Saumya Allison [facility] CM Progress Note CM Note Note Notes: Patient plan of care reviewed in rounds. She is homeless and currently stays in a long term. She verbalized that she was informed by a nurse she would be eligible for SNF. The doctor informed patient she is not likely to meet criteria for LTC at this point. CM to follow for needs. Plan: TBD likely to long term. Date Signed: 02/04/2018 02:00 PM Electronically Signed By:Trixie Leonardo RN [facility] Progress Note CM Note CM Note Notes: Patient plan of care reviewed in rounds. 68 year old homeless woman currently staying at [facility] and is reportedly on "The path to home". I attempted to clarify where she was in housing lottery and if she had needs to fill out any more paper work. I have sent in a ULTC 100, she already has ip technology transactions attorney medicaid in place. She also has Medicare. I have sent referrals too SNF's but the patient is resistant to go to SNF as she has a pet dog currently in the care of an unknown democrat. She have a nurse Marianne Brian [phone]. Marianne denies possession of the dog but knows where the dog is but won't disclose the location. If she refuses to go to SNF she will have to discharge to the streets. Plan: TBD Date Signed: 02/06/2018 04:55 PM Electronically Signed By:Trixie Leonardo RN [facility] Progress Note CM Note CM Note Notes: Patient plan of care reviewed in rounds. She is now agreeable to possibility of SNF without her dog. She wants to go somewhere in [place] preferably Resent referrals to [facility] and [facility] via allscripts. CM to follow. Plan: To [facility] Date Signed: 02/09/2018 12:54 PM Electronically Signed By:Trixie Leonardo RN [facility] CM Progress Note CM Note CM Note Notes: Plan of care reviewed with this am. Medicallly cleared for discharge per . BITA triggered and screen completed by JOSHUA Son the liason is aware and ensuring that authorization is in place. Plan wheelchair transport to [facility]. Date Signed: 02/10/2018 01:13 PM Electronically Signed By:Trixie Leonardo RN [facility] CM Progress Note CM Note CM Note Notes: [facility] is unable to accept patient's medicare as it is [employer]. I have sent updates to [facility] and also spoke to [facility]. Awaiting return information. Dc will need to be held . Date Signed: 02/10/2018 04:28 PM Electronically Signed By:Trixie Leonardo RN [facility] CM Progress Note CM Note CM Note Notes: Patient reports to RN this am that she is going to be cooking Thanksgiving dinner for family in [place]. Upon further discussion during rounds with patient she has many friends in [place] with whom she could stay. She replies that she is to stay with a friend who's is on his way to pick her up. She also states that she has a follow up appointment with Dr. Barrios in [place]. When she was questioned about staying in the long term instead of this living situation, she replied that her friend had gotten a new job. Plan: No further need for LTC or rehab. Dc to [facility] independently, Date Signed: 02/11/2018 11:50 AM Electronically Signed By:Trixie Leonardo RN Case Management Discharge Plan Note Case Management Discharge Discharge Order Complete? Answers: Yes Followup Appointment 02/16/2018 12:00 AM Patient to Obtain Answers: Independently Medications Discharge Comments Notes: Patient has elected to go live in [place] with ? family or friends. She reports that she is able to live with friends in [place] and no longer wants to go to SNF. She has a ride coming to pick her up. Date Signed: 02/11/2018 12:43 PM Electronically Signed By:Trixie Leonardo RN Intervention Information Intervention Type:*IM-Signed Date of Service:02/10/2018 11:03 AM Patient Type:Inpatient Staff Member:Saumya Allison Hours: Discipline: Severity: Comment:
== END 2018-02-11 14:20 | disposition home or self-care (01) | DRG 439 ==
LOC: EDUNIT# → F1N 21:59 → OBSVTOIN 02-04 15:55
PROVIDERS: ADMIT Internal Medicine; ATTEND Internal Medicine
DX: K85.00 Idiopathic acute pancreatitis without necrosis or infection (principal); K59.00 Constipation, unspecified; K75.81 Nonalcoholic steatohepatitis (NASH); F09 Unspecified mental disorder due to known physiological condition; K74.69 Other cirrhosis of liver; D61.818 Other pancytopenia; I25.10 Atherosclerotic heart disease of native coronary artery without angina pectoris; I48.91 Unspecified atrial fibrillation; Z95.0 Presence of cardiac pacemaker; F31.9 Bipolar disorder, unspecified; E11.9 Type 2 diabetes mellitus without complications; Z59.0 Homelessness; Z23 Encounter for immunization
CPT/HCPCS: 82435-PO; 82565-PO; 82947-PO; 84132-PO; 84295-PO; 84520-PO; 85014-PO; 96374; 97116-GP; 97161-GP; 97166-GO; 97530-GP; 97535-GO; G0009; G0378; G8978-GP-CK; G8979-GP-CI; G8980-GP-CI; G8987-GO-CJ; G8988-GO-CI; J2405; Q9967

== ENCOUNTER 2018-02-22 08:59 | Emergency (ER) | payer OTHER, MEDICAID ==
[2018-02-22] MEDS ORDERED: IPRATROPIUM/ALBUTEROL 3 ML DEYVIAL IH ONE (09:08)
--- NOTE | 2018-02-22 09:22 | EDPHY ---
H & P Stated Complaint: fatigue, depressed - Medical/Surgical History Hx Asthma: Yes Hx Chronic Respiratory Disease: No Hx Diabetes: Yes Hx Cardiac Disease: Yes Hx Renal Disease: No Hx Cirrhosis: Yes Hx Alcoholism: Yes Hx HIV/AIDS: No Hx Splenectomy or Spleen Trauma: No Other PMH: Bipolar, diabetes, pacemaker, afib, liver disease not related to alcohol. dementia, ME, ulcers, hysterectomy, asthma - Social History Smoking Status: Current every day smoker Time Seen by Provider: 02/22/18 09:07 HPI/ROS: Chief complaint: Malaise History of present illness: This is a 68-year-old female, currently homeless staying at the alf, who presents with EMS for malaise. When I ask her what is wrong she states "I guess it is my depression." She does not have a specific complaint. On further discussion she does state she continue to have a cough and states she has had pneumonia at for number of months. No fever, no trouble breathing. No report of other problems. Review of systems: A 10 point review of systems was obtained and other than described above was negative (Shane Conley) - Physical Exam Exam: General Appearance: Alert, nontoxic. Eyes: Pupils equal and round no pallor or injection. ENT, Mouth: Mucous membranes moist. Respiratory: Diffuse rhonchi. Patient is speaking in full sentences. No respiratory distress. Cardiovascular: Regular rate and rhythm. Gastrointestinal: Abdomen is soft and non tender, no masses, bowel sounds normal. Neurological: Alert and oriented x4. Skin: Warm and dry, no rashes. Musculoskeletal: Neck is supple non tender. Extremities are symmetrical, full range of motion. Ambulating well on her own. Psychiatric: Patient is oriented X 3, there is no agitation. (Shane Conley) Constitutional: Initial Vital Signs Temperature (C) 37.1 C 02/22/18 09:04 Heart Rate 77 02/22/18 09:04 Respiratory Rate 18 02/22/18 09:04 Blood Pressure 190/99 H 02/22/18 09:04 O2 Sat (%) 91 L 02/22/18 09:04 O2 Delivery Mode Room Air Allergies/Adverse Reactions: codeine Allergy (Verified 02/22/18 09:15) meperidine HCl [From Demerol] Allergy (Verified 02/22/18 09:15) methadone [Methadone] Allergy (Verified 02/22/18 09:15) morphine Allergy (Verified 02/22/18 09:15) nalbuphine HCl [From Nubain] Allergy (Verified 02/22/18 09:15) Home Medications: Medication Instructions Recorded Ondansetron Odt [Zofran Odt 4 mg 4 mg PO TID PRN 09/29/17 (*)] Oxybutynin Chloride [OXYBUTYNIN 5 mg PO DAILY 09/29/17 CHLORIDE ER] lamoTRIgine [LaMICtal] 50 mg PO BID 09/29/17 Escitalopram Oxalate [Lexapro] 20 mg PO DAILY 02/03/18 Omeprazole 40 mg PO DAILY 02/03/18 Rifaximin [Xifaxan] 550 mg PO BID 02/03/18 Rizatriptan Benzoate [Maxalt Client Technical Professional] 10 mg PO DAILY PRN 02/03/18 Lactulose 30 gm PO BID #14 02/10/18 clonazePAM [Klonopin (*)] 0.5 mg PO DAILY #30 tab 02/10/18 Propranolol Sr [Inderal LA 60mg 60 mg PO DAILY #30 cap 02/11/18 (*)] predniSONE [prednisone 20mg (RX)] 40 mg PO DAILY #5 tab 02/22/18 Medical Decision Making - Diagnostics Imaging: I viewed and interpreted images myself - Diagnostics Imaging Results: Imaging Impressions Chest X-Ray 02/22/18 09:08 Impression: 1. Cardiomegaly. No CHF or pleural effusion. 2. Mild airways disease. No pneumonia. ED Course/Re-evaluation: Patient seen in conjunction with my secondary supervising physician Dr. Triston Miles. Patient presents to the emergency department reporting malaise. She is complaining of some trouble breathing. Chest x-ray with evidence of reactive airway disease. She is given a DuoNeb. She has an inhaler. She will be given a burst of steroids. Case management has seen her. She does have a place to stay at the homeless alf. She is to follow up with her primary care doctor for recheck this week. Return precautions are given. (Shane Conley) Differential Diagnosis: Included but not limited to depression, infection including pulmonary infections , reactive airway disease, anemia, electrolyte disturbances (Shane Conley) Other Provider: PHYSICIAN DOCUMENTATION: The patient was evaluated and managed by the Physician Vertical Punch Operator and myself. I have reviewed the chart and agree with the findings and plan of care as documented. In addition, I examined the patient myself at 925. History confirmed as history of asthma uses inhaler smokes about a pack a week. Physical findings as follows: Some expiratory wheezing, saturation 91%. DuoNeb, prednisone discussed and consented. I am the secondary supervising physician. (Triston Miles) - Data Points Laboratory Results: Laboratory Results 02/22/18 09:20 02/22/18 09:20 02/22/18 02/22/18 09:20 09:20 WBC 4.73 10^3/uL 10^3/uL (3.80-9.50) RBC 4.56 10^6/uL 10^6/uL (4.18-5.33) Hgb 11.5 g/dL L g/dL (12.6-16.3) Hct 36.9 % L % (38.0-47.0) MCV 80.9 fL L fL (81.5-99.8) MCH 25.2 pg L pg (27.9-34.1) MCHC 31.2 g/dL L g/dL (32.4-36.7) RDW 18.5 % H % (11.5-15.2) Plt Count 125 10^3/uL L 10^3/uL (150-400) MPV 10.7 fL fL (8.7-11.7) Neut % (Auto) 59.9 % % (39.3-74.2) Lymph % (Auto) 23.3 % % (15.0-45.0) [place] % (Auto) 13.1 % H % (4.5-13.0) Eos % (Auto) 2.7 % % (0.6-7.6) Baso % (Auto) 0.8 % % (0.3-1.7) Nucleat RBC Rel Count 0.0 % % (0.0-0.2) Absolute Neuts (auto) 2.83 10^3/uL 10^3/uL (1.70-6.50) Absolute Lymphs (auto) 1.10 10^3/uL 10^3/uL (1.00-3.00) Absolute Monos (auto) 0.62 10^3/uL 10^3/uL (0.30-0.80) Absolute Eos (auto) 0.13 10^3/uL 10^3/uL (0.03-0.40) Absolute Basos (auto) 0.04 10^3/uL 10^3/uL (0.02-0.10) Absolute Nucleated RBC 0.00 10^3/uL 10^3/uL (0-0.01) Immature Gran % 0.2 % % (0.0-1.1) Immature Gran # 0.01 10^3/uL 10^3/uL (0.00-0.10) Sodium 141 mEq/L mEq/L (135-145) Potassium 4.0 mEq/L mEq/L (3.3-5.0) Chloride 110 mEq/L mEq/L (97-110) Carbon Dioxide 27 mEq/l mEq/l (22-31) Anion Gap 4 mEq/L L mEq/L (6-14) BUN 8 mg/dL mg/dL (7-23) Creatinine 0.6 mg/dL mg/dL (0.6-1.0) Estimated GFR > 60 Glucose 95 mg/dL mg/dL (70-100) Calcium 9.3 mg/dL mg/dL (8.5-10.4) Medications Given: Discontinued Medications Albuterol/Ipratropium (Duoneb) 3 ml IH EDNOW ONE Stop: 02/22/18 09:09 Last Admin: 02/22/18 09:32 Dose: 3 ml Prednisone (Prednisone) 60 mg PO EDNOW ONE Stop: 02/22/18 09:28 Last Admin: 02/22/18 09:32 Dose: 60 mg Departure - Departure Disposition: Home, Routine, Self-Care Clinical Impression: Asthma Qualifiers: Asthma severity: mild Asthma persistence: unspecified Asthma complication type : with acute exacerbation Qualified Code(s): J45.901 - Unspecified asthma with ( acute) exacerbation Condition: Good Instructions: Asthma (ED) Referrals: SHANE LEIVA [Primary Care Provider] - As per Instructions [facility],. [Clinic] - As per Instructions Prescriptions: predniSONE [prednisone 20mg (RX)] 40 mg PO DAILY #5 tab
[2018-02-22] MEDS ORDERED: predniSONE 20 MG TAB PO ONE (09:27)
[2018-02-22 09:52] LABS: PLATELET COUNT 125 10^3/uL (150-400)
[2018-02-22 11:20] VITALS: BP 143/69
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
--- NOTE | 2018-02-24 15:58 | ASMTCMCOM ---
CM Note CM Note Notes: Late Entry from 02/23/18: Followed up with pt's PCP Dr. Shane Barrios's office ([phone]) at [facility] and left a voicemail for his Taylor WATSON to call back re:pt needing followup appt and care coordination. Spoke w/hotel receptionist at Dr Barrios's office and pt's next appt w/Dr Barrios is 03/19. Date Signed: 02/24/2018 03:58 PM Electronically Signed By:Malu Sales RN
== END 2018-02-22 11:20 | disposition home or self-care (01) ==
LOC: EDBD → EDUNIT#
DX: J45.901 Unspecified asthma with (acute) exacerbation (principal); F31.9 Bipolar disorder, unspecified; E11.9 Type 2 diabetes mellitus without complications; I48.91 Unspecified atrial fibrillation; K76.9 Liver disease, unspecified; F03.90 Unspecified dementia, unspecified severity, without behavioral disturbance, psychotic disturbance, mood disturbance, and anxiety; I25.2 Old myocardial infarction; F17.200 Nicotine dependence, unspecified, uncomplicated; Z95.0 Presence of cardiac pacemaker; Z59.0 Homelessness
CPT/HCPCS: 71046; 99284; J7512

== ENCOUNTER 2018-03-05 07:32 | Emergency (ER) | payer OTHER ==
[2018-03-05] MEDS ORDERED: NS 1,000 ML IV ONE (07:46)
--- NOTE | 2018-03-05 08:10 | EDPHY ---
H & P Time Seen by Provider: 03/05/18 07:34 HPI/ROS: Chief complaint. Confusion HPI. Patient is a 68-year-old female here by EMS from homeless [facility] with confusion that was present upon awakening this morning. She tells me she had bad dreams last night and when she awoke she felt that the during was real and felt disoriented and confused. She has slight headache. No visual symptoms. Denies chest pain or shortness of breath or abdominal pain. Slight nausea. No recent injury. She has been noncompliant with her medications and did not take them yesterday. No fever or cough. ROS 10 systems were reviewed and negative with the exception of the elements mentioned in the history of present illness Past Medical/Surgical History: Past medical history bipolar, diabetes, pacemaker, atrial fibrillation, liver disease, dementia, previous VT, peptic ulcer disease, hysterectomy, asthma Social History: Single, daily smoker, no alcohol Smoking Status: Current every day smoker Physical Exam: General Appearance: Alert well-developed female mild distress. Vital signs significant for initial blood pressure 166/121 Eyes: Pupils equal and round no pallor or injection. ENT, Mouth: Mucous membranes are moist. Respiratory: There are no retractions, lungs are clear to auscultation. Cardiovascular: Regular rate and rhythm. Gastrointestinal: Abdomen is soft and nontender, no masses, bowel sounds normal. Neurological: Awake and alert, sensory and motor exams grossly normal. Speech is normal. Cranial nerves intact. There is no pronator drift. [id number] is slightly clumsy with both index fingers but intact. Skin: Warm and dry, no rashes. Musculoskeletal: Neck is supple nontender. Extremities symmetrical, full range of motion. Psychiatric: Patient is now oriented X 3, there is no agitation. Constitutional: Initial Vital Signs Temperature (C) 37.0 C 03/05/18 07:42 Heart Rate 68 03/05/18 07:42 Respiratory Rate 18 03/05/18 07:42 Blood Pressure 166/121 H 03/05/18 07:42 O2 Sat (%) 95 03/05/18 07:42 O2 Delivery Mode Room Air Allergies/Adverse Reactions: codeine Allergy (Verified 03/05/18 07:45) meperidine HCl [From Demerol] Allergy (Verified 03/05/18 07:45) methadone [Methadone] Allergy (Verified 03/05/18 07:45) morphine Allergy (Verified 03/05/18 07:45) nalbuphine HCl [From Nubain] Allergy (Verified 03/05/18 07:45) Home Medications: Medication Instructions Recorded Ondansetron Odt [Zofran Odt 4 mg 4 mg PO TID PRN 09/29/17 (*)] Oxybutynin Chloride [OXYBUTYNIN 5 mg PO DAILY 09/29/17 CHLORIDE ER] lamoTRIgine [LaMICtal] 50 mg PO BID 09/29/17 Escitalopram Oxalate [Lexapro] 20 mg PO DAILY 02/03/18 Omeprazole 40 mg PO DAILY 02/03/18 Rifaximin [Xifaxan] 550 mg PO BID 02/03/18 Rizatriptan Benzoate [Maxalt Marketing Professor] 10 mg PO DAILY PRN 02/03/18 Lactulose 30 gm PO BID #14 02/10/18 clonazePAM [Klonopin (*)] 0.5 mg PO DAILY #30 tab 02/10/18 Propranolol Sr [Inderal LA 60mg 60 mg PO DAILY #30 cap 02/11/18 (*)] predniSONE [prednisone 20mg (RX)] 40 mg PO DAILY #5 tab 02/22/18 Medical Decision Making - Diagnostics EKG Interpretation: EKG interpreted by me shows a normal sinus rhythm with normal axis. QRS shows left bundle branch block. Interventricular conduction delay. No significant ST elevation or depression. No arrhythmia. Rate is 63 Imaging Results: Imaging Impressions Head CT 03/05/18 08:06 Impression: 1. Mild atrophy. 2. No acute hemorrhage, hydrocephalus, or mass effect. 3. Cerebrovascular atherosclerosis. 4. No definite acute infarct. 5. Moderate microvascular ischemic gliosis. 6. Consider MRI of the brain, if there is continued clinical concern. Findings and recommendations discussed with Emergency Department physician, JANET GONGORA at 9:43 hour, 03/05/2018. Final report concurs with initial preliminary interpretation. CT head interpreted by me and discussed with Radiology shows atrophy. No acute bleeding Procedures: IV normal saline, monitor ED Course/Re-evaluation: Re-evaluation at 10:10 a.m.. Patient is stable. She is oriented x3. Not confused. She is feeling better. She feels comfortable with discharge. Patient and I discussed imaging lab EKG findings. We discussed treatment plan including criteria for return importance of follow-up and further evaluation. She expresses understanding and agreement Differential Diagnosis: I considered electrolyte abnormalities, intracranial injury, acute coronary syndrome, encephalopathy. Her confusion and altered mental status have resolved. - Data Points Laboratory Results: Laboratory Results 03/05/18 07:30 03/05/18 07:30 03/05/18 03/05/18 03/05/18 09:15 08:04 07:50 WBC RBC Hgb Hct MCV MCH MCHC RDW Plt Count MPV Neut % (Auto) Lymph % (Auto) [place] % (Auto) Eos % (Auto) Baso % (Auto) Nucleat RBC Rel Count Absolute Neuts (auto) Absolute Lymphs (auto) Absolute Monos (auto) Absolute Eos (auto) Absolute Basos (auto) Absolute Nucleated RBC Immature Gran % Immature Gran # PT INR APTT Sodium Potassium Chloride Carbon Dioxide Anion Gap BUN Creatinine Estimated GFR Glucose Calcium Total Bilirubin Conjugated Bilirubin Unconjugated Bilirubin AST ALT Alkaline Phosphatase Ammonia 11.0 uMOL/L uMOL/L (9.0-30.0) POC Troponin I 0.01 ng/mL ng/mL (0.00-0.08) Total Protein Albumin Urine Color YELLOW Urine Appearance CLEAR Urine pH 7.0 (5.0-7.5) Ur Specific [place] 1.008 (1.002-1.030) Urine Protein NEGATIVE (NEGATIVE) Urine Ketones NEGATIVE (NEGATIVE) Urine Blood NEGATIVE (NEGATIVE) Urine Nitrate NEGATIVE (NEGATIVE) Urine Bilirubin NEGATIVE (NEGATIVE) Urine Urobilinogen NEGATIVE EU EU (0.2-1.0) Ur Leukocyte Esterase NEGATIVE (NEGATIVE) Urine RBC NONE SEEN /hpf /hpf (0-3) Urine WBC 0-1 /hpf /hpf (0-3) Ur Epithelial Cells TRACE /lpf /lpf (NONE-1+) Urine Bacteria TRACE /hpf H /hpf (NONE SEEN) Urine Mucus TRACE /lpf /lpf (NONE-1+) Urine Glucose NEGATIVE (NEGATIVE) 03/05/18 03/05/18 03/05/18 07:30 07:30 07:30 WBC 4.49 10^3/uL 10^3/uL (3.80-9.50) RBC 4.60 10^6/uL 10^6/uL (4.18-5.33) Hgb 11.7 g/dL L g/dL (12.6-16.3) Hct 37.9 % L % (38.0-47.0) MCV 82.4 fL fL (81.5-99.8) MCH 25.4 pg L pg (27.9-34.1) MCHC 30.9 g/dL L g/dL (32.4-36.7) RDW 18.2 % H % (11.5-15.2) Plt Count 94 10^3/uL L 10^3/uL (150-400) MPV TNP Neut % (Auto) 56.1 % % (39.3-74.2) Lymph % (Auto) 26.3 % % (15.0-45.0) [place] % (Auto) 12.0 % % (4.5-13.0) Eos % (Auto) 4.5 % % (0.6-7.6) Baso % (Auto) 0.9 % % (0.3-1.7) Nucleat RBC Rel Count 0.0 % % (0.0-0.2) Absolute Neuts (auto) 2.52 10^3/uL 10^3/uL (1.70-6.50) Absolute Lymphs (auto) 1.18 10^3/uL 10^3/uL (1.00-3.00) Absolute Monos (auto) 0.54 10^3/uL 10^3/uL (0.30-0.80) Absolute Eos (auto) 0.20 10^3/uL 10^3/uL (0.03-0.40) Absolute Basos (auto) 0.04 10^3/uL 10^3/uL (0.02-0.10) Absolute Nucleated RBC 0.00 10^3/uL 10^3/uL (0-0.01) Immature Gran % 0.2 % % (0.0-1.1) Immature Gran # 0.01 10^3/uL 10^3/uL (0.00-0.10) PT 14.5 SEC SEC (12.0-15.0) INR 1.11 (0.83-1.16) APTT 33.4 SEC SEC (23.0-38.0) Sodium 143 mEq/L mEq/L (135-145) Potassium 3.7 mEq/L mEq/L (3.5-5.2) Chloride 112 mEq/L H mEq/L (97-110) Carbon Dioxide 24 mEq/l mEq/l (22-31) Anion Gap 7 mEq/L mEq/L (6-14) BUN 7 mg/dL mg/dL (7-23) Creatinine 0.5 mg/dL L mg/dL (0.6-1.0) Estimated GFR > 60 Glucose 105 mg/dL H mg/dL (70-100) Calcium 9.1 mg/dL mg/dL (8.5-10.4) Total Bilirubin 1.7 mg/dL H mg/dL (0.1-1.4) Conjugated Bilirubin 0.4 mg/dL mg/dL (0.0-0.5) Unconjugated Bilirubin 1.3 mg/dL H mg/dL (0.0-1.1) AST 51 IU/L H IU/L (14-46) ALT 45 IU/L IU/L (9-52) Alkaline Phosphatase 221 IU/L H IU/L (38-126) Ammonia POC Troponin I Total Protein 6.0 g/dL L g/dL (6.3-8.2) Albumin 3.4 g/dL L g/dL (3.5-5.0) Urine Color Urine Appearance Urine pH Ur Specific [place] Urine Protein Urine Ketones Urine Blood Urine Nitrate Urine Bilirubin Urine Urobilinogen Ur Leukocyte Esterase Urine RBC Urine WBC Ur Epithelial Cells Urine Bacteria Urine Mucus Urine Glucose Medications Given: Discontinued Medications Sodium Chloride (Ns) 1,000 mls @ 0 mls/hr IV EDNOW ONE; Wide Open PRN Reason: Protocol Stop: 03/05/18 07:47 Last Admin: 03/05/18 08:29 Dose: 1,000 mls Point of Care Test Results: Chemistry 03/05/18 08:04 POC Troponin I 0.01 ng/mL ng/mL (0.00-0.08) Departure - Departure Disposition: Home, Routine, Self-Care Clinical Impression: Confusion Condition: Good Instructions: Altered Mental Status (ED) Additional Instructions: Continue regular medications. Return for worsening symptoms. Follow up with your regular physician Dr. Barrios in the next 1-2 days without fail. Referrals: Patient,NotPresent [Unknown] - As per Instructions
[2018-03-05 08:16] LABS: PLATELET COUNT 94 10^3/uL (150-400)
[2018-03-05 08:20] LABS: INR 1.11 (0.83-1.16); PROTIME(PATIENT) 14.5 SEC (12.0-15.0)
--- NOTE | 2018-03-05 08:52 | CPEKG ---
Test Reason : OPEN Blood Pressure : / mmHG Vent. Rate : 063 BPM Atrial Rate : 064 BPM P-R Int : 167 ms QRS Dur : 141 ms QT Int : 455 ms P-R-T Axes : 071 036 231 degrees QTc Int : 466 ms Sinus rhythm Left bundle branch block Confirmed by Donn Villalpando ([id number]) on 03/05/2018 8:51:57 AM Referred By: Confirmed By:Donn Villalpando
[2018-03-05 10:41] VITALS: BP 157/99
--- NOTE | 2018-03-05 11:13 | ASMTLACE ---
LACE Length of stay for Answers: Less than 1 day current admission Acuity / Level of Answers: No Care: Did the patient have an inpatient admission? Comorbidities - select Answers: Chronic pulmonary disease all that apply # of Emergency department Answers: 5-8 visits in the last 6 months Social determinants Answers: Homelessness (street, senior living) Mental health diagnosis (anxiety, depression, pers onality disorders, etc.) Lack of community resources and/or lack of social support (no pcp, lives alone, transportation, anthony d) Score: 16 Date Signed: 03/05/2018 11:12 AM Electronically Signed By:Clarissa Patton LCSW
--- NOTE | 2018-03-05 11:48 | ASMTCMCOM ---
CM Note CM Note Notes: Request for transportation assistance back to detention. Nikki pass offered and pt became angry stating the the nurse told her they would give her a voucher. This SW indicated that the nurse did not offer a voucher and pt. stated she gets a voucher every time she comes to the ED. This SW explained that a voucher would not always be available Pt escalated and grabbed the bus pass stating "you wonder why people don't call you when they need you.". Date Signed: 03/05/2018 11:48 AM Electronically Signed By:Clarissa Patton LCSW
== END 2018-03-05 11:03 | disposition home or self-care (01) ==
LOC: EDUNIT#
DX: R41.82 Altered mental status, unspecified (principal); Z91.14 Patient's other noncompliance with medication regimen; F31.9 Bipolar disorder, unspecified; E11.9 Type 2 diabetes mellitus without complications; I48.91 Unspecified atrial fibrillation; I25.2 Old myocardial infarction; Z95.0 Presence of cardiac pacemaker; F17.200 Nicotine dependence, unspecified, uncomplicated; Z59.0 Homelessness
CPT/HCPCS: 84484-PO

== ENCOUNTER 2018-03-18 19:02 | Emergency (ER) | payer OTHER, MEDICAID ==
[2018-03-18] MEDS ORDERED: ALBUTEROL 3 ML DEYVIAL IH ONE (19:24)
[2018-03-18] MEDS ORDERED: ALBUTEROL INH PREPACK MDI TAKEHOME ONE (19:24)
[2018-03-18] MEDS ORDERED: ALBUTEROL 3 ML DEYVIAL ONE (19:25)
--- NOTE | 2018-03-18 19:33 | EDPHY ---
HPI/HX/ROS/PE/MDM Narrative: CLINICAL IMPRESSION: Left otalgia with bloody otorrhea, viral URI ASSESSMENT/PLAN: 68-year-old homeless female presents to the emergency department with left otalgia and bloody otorrhea since this morning associated with viral URI symptoms for several days. Patient was seen by her primary care provider today , prescribed Ciprodex but has not yet started this. She is also noncompliant with albuterol and does have wheezing on initial exam to bilateral lower lobes. Chest x-ray shows no evidence of underlying pneumonia. Patient is a chronic smoker. She did feel improved with an albuterol neb treatment and was given an albuterol take-home inhaler. I personally put Ciprodex in her ear and showed her how to use this. Rapid flu is negative. In no hypoxia or respiratory distress. Patient is afebrile. She is tolerating liquids without difficulty. She plans on staying at the [facility] and I encouraged that she follow up with her primary care doctor in 24-48 hours. Warning signs return to ED sooner outlined and discharge. DIFFERENTIAL DX: Differential diagnosis includes but not limited to viral URI, influenza, otitis media with perforation, otitis externa, ear canal trauma, asthma exacerbation, reactive airway disease, pneumonia ED PROCEDURES: See lab and/or imaging results below ED COURSE: 8:30 p.m.: Patient reassessed, vital signs remained stable, no hypoxia, she does feel better after an albuterol neb. She did get an albuterol take-home pack. Chest x-ray reassuring. Patient reports that Martha from the [facility] has agreed to get her about her back to the [facility]. We will contact them to see if this is the case. I did tell the patient that we do not necessarily always have cab vouchers. CHIEF COMPLAINT: Headache and ear pain HPI: This is a homeless 68-year-old female brought to the emergency department by ambulance with complaints of left-sided ear pain and headache that began today. Patient saw her primary care provider Dr. Leiva in [place], was prescribed Ciprodex drops but has not yet started those. She also reports she had a fever of 103 earlier today. She states she has been generally feeling unwell for the last 2 days but also reports she has not felt well for"a very long time". She does have underlying pulmonary disease but left all of her inhalers in storage in [place] and has not been taking them. She does not use Q-tips in the ear and denies any trauma. She states she had bloody discharge from the ear today. She plans to stay in the homeless nursing home in [facility]. PAST MEDICAL HISTORY: Bipolar disease, diabetes, atrial fibrillation, liver disease, previous OR, peptic ulcer disease, asthma See nurse/triage notes for additional history if applicable Pertinent Past Surgical History: Hysterectomy, pacer Family History: None reported Social History: Smoker, homeless, single REVIEW OF SYSTEMS: All other systems negative Constitutional: Positive for fever and chills Eyes: No discharge, vision change ENT: No sore throat, congestion, positive left-sided ear pain. Cardiovascular: No chest pain, no palpitations. Respiratory: No cough, no shortness of breath, positive wheezing. Gastrointestinal: No abdominal pain, no vomiting, diarrhea. Genitourinary: No hematuria, dysuria, flank pain, pelvic pain Musculoskeletal: No back pain, joint swelling, joint pain, myalgias. Skin: No rashes, color change. Neurological: Positive headache, dizziness, weakness. PHYSICAL EXAM: General Appearance: Alert, oriented, appropriate, cooperative, NAD, well hydrated, non-toxic appearing, VSS, feels warm but afebrile. no hypoxia. HEENT: Cerumen impaction on the right. Partial cerumen impaction on the left with bloody otorrhea noted. I am unable to fully visualize the left tympanic membrane, I cannot rule out tympanic membrane rupture. No clear signs of otitis externa or foreign body. Oropharynx clear is no erythema or exudates, no tonsillar hypertrophy or asymmetry. Dentition without abnormality. Eyes: PERRLA, no acute vision change, nystagmus, swelling, discharge, pain or photosensitivity. Conjunctiva pink, no pallor or injection Neck: Supple, nontender, no lymphadenopathy, no midline pain, FROM, no meningismus. Respiratory: There are no retractions, crackles and wheezing noted to bilateral lower lobes Cardiac: 4/6 holosystolic murmur, paced Gastrointestinal: Abdomen is soft, nontender, bowel sounds normal, no masses/ hernia, no rigidity, guarding or focal peritoneal findings. Neurological: Alert and oriented x 3, CN 2-12 grossly intact, normal gait no ataxia, DTR's intact, normal sensation and strength Skin: Warm, dry, no rashes, no nodules on palpation. Musculoskeletal: Extremities are symmetrical, full range of motion, no tenderness, deformity, swelling, or erythema. Psychiatric: Patient is oriented X 3, there is no agitation. MEDICAL DECISION MAKING: Patient was seen independently. Secondary supervising physician at time of evaluation was Dr. Miles. Diagnosis: Left otalgia with bloody otorrhea, viral URI. New, requires workup Summary: See Assessment and Plan for summary of ED visit Clinical lab tests: ordered / reviewed. Independent visualization of images, tracing, or specimens: Yes. Decision to obtain medical records or history from someone other than the patient: No Review / Summarize previous medical records: Reviewed recent ED and case management notes Discussed patient with another provider: No Patient Progress: improved. - Data Points Imaging Results: Imaging Impressions Chest X-Ray 03/18/18 19:24 Impression: No pneumonia or evidence for acute cardiac decompensation. Laboratory Results: 03/18/18 03/18/18 19:30 19:30 Nasal Influenza A PCR NEGATIVE FOR FLU A (NEGATIVE) Nasal Influenza B PCR NEGATIVE FOR FLU B (NEGATIVE) RSV (PCR) RSV DETECTED H (NEGATIVE) Medications Given: Discontinued Medications Albuterol (Proventil Neb) 3 ml IH EDNOW ONE Stop: 03/18/18 19:25 Last Admin: 03/18/18 19:30 Dose: 3 ml General Initial Vital Signs: Initial Vital Signs Temperature (C) 36.8 C 03/18/18 19:07 Heart Rate 89 03/18/18 19:07 Respiratory Rate 16 03/18/18 19:07 Blood Pressure 182/81 H 03/18/18 19:07 O2 Sat (%) 94 03/18/18 19:07 O2 Delivery Mode Room Air Allergies/Adverse Reactions: codeine Allergy (Verified 03/18/18 19:07) meperidine HCl [From Demerol] Allergy (Verified 03/18/18 19:07) methadone [Methadone] Allergy (Verified 03/18/18 19:07) morphine Allergy (Verified 03/18/18 19:07) nalbuphine HCl [From Nubain] Allergy (Verified 03/18/18 19:07) Home Medications: Medication Instructions Recorded Ondansetron Odt [Zofran Odt 4 mg 4 mg PO TID PRN 09/29/17 (*)] Oxybutynin Chloride [OXYBUTYNIN 5 mg PO DAILY 09/29/17 CHLORIDE ER] lamoTRIgine [LaMICtal] 50 mg PO BID 09/29/17 Escitalopram Oxalate [Lexapro] 20 mg PO DAILY 02/03/18 Omeprazole 40 mg PO DAILY 02/03/18 Rifaximin [Xifaxan] 550 mg PO BID 02/03/18 Rizatriptan Benzoate [Maxalt Scientific Programmer Analyst] 10 mg PO DAILY PRN 02/03/18 Lactulose 30 gm PO BID #14 02/10/18 clonazePAM [Klonopin (*)] 0.5 mg PO DAILY #30 tab 02/10/18 Propranolol Sr [Inderal LA 60mg 60 mg PO DAILY #30 cap 02/11/18 (*)] predniSONE [prednisone 20mg (RX)] 40 mg PO DAILY #5 tab 02/22/18 Departure - Departure Disposition: Home, Routine, Self-Care Clinical Impression: RSV bronchitis, Infection of left ear Condition: Good Instructions: Respiratory Syncytial Virus (ED) Additional Instructions: DISCHARGE INSTRUCTIONS FROM YOUR DOCTOR Thank you for visiting our emergency department today. Please keep in mind that discharge from the emergency department does not mean that there is nothing wrong - it simply means that we have not identified an emergency condition that requires further evaluation or treatment in the hospital. You should always plan to follow up with primary care for re-evaluation of your condition in the next 2-3 days. If you have been referred to a specialist, please call as soon as possible (today or tomorrow) to schedule your follow up appointment at the appropriate time. YOUR CHEST X-RAY IS REASSURING WITH NO EVIDENCE OF PNEUMONIA. YOU DO HAVE RSV WHICH IS A COMMON WINTER VIRUS. YOU DO NOT HAVE INFLUENZA. PLEASE USE THE EARDROPS DR. LEIVA PRESCRIBED YOU DIRECTED. PLEASE USE AN ALBUTEROL INHALER WITH SPACER EVERY 4 HR FOR THE NEXT SEVERAL DAYS. GET PLENTY OF REST. DRINK PLENTY OF WATER AND USE TYLENOL. FOLLOW UP WITH HER PRIMARY CARE DOCTOR IN 24-48 HOURS TO RECHECK. RETURN TO THE EMERGENCY DEPARTMENT SOONER FOR WORSENING SYMPTOMS, PERSISTENT OR WORSENING COUGH, OR ANY OTHER CONCERNS. People present with illnesses and injuries in different ways, and it is always possible that we have missed something. You may always return for re-evaluation if symptoms worsen or if they are not improving or if you develop new/different symptoms. Again, thank you for choosing our emergency department. We hope that you feel better. Referrals: Patient,NotPresent [Unknown] - As per Instructions JANE LEIVA [Non Staff Provider (MD)] - 1-2 days without fail
[2018-03-18 21:01] VITALS: BP 135/75
== END 2018-03-18 21:01 | disposition home or self-care (01) ==
LOC: EDUNIT#
DX: J20.5 Acute bronchitis due to respiratory syncytial virus (principal); H66.92 Otitis media, unspecified, left ear; H92.12 Otorrhea, left ear; Z59.0 Homelessness
CPT/HCPCS: 71046; 99284; J7613

== ENCOUNTER 2018-03-25 17:32 | Inpatient (IN) | payer OTHER, MEDICAID ==
[2018-03-25] MEDS ORDERED: ALBUTEROL 3 ML DEYVIAL IH ONE (17:52)
--- NOTE | 2018-03-25 17:52 | EDPHY ---
H & P Time Seen by Provider: 03/25/18 17:38 HPI/ROS: CHIEF COMPLAINT: Shortness of breath HISTORY OF PRESENT ILLNESS: The patient is a 68-year-old homeless female who presents emergency department ongoing shortness of breath. Patient was seen at [facility] on the 18 of March. She was subsequently seen at [facility] on the 21 of March. She was diagnosed with the pneumonia per report. She was found the [facility] [place] [facility] today with increased respiratory distress. EMS found the patient with a respiratory rate of between 35 and 40. Her O2 saturation was 92%. She was given a DuoNeb and Solu-Medrol. This did improve her symptoms. Patient is slightly lethargic and does not fully answer questions. REVIEW OF SYSTEMS: Review of systems is limited due to the patient's mental status. Past Medical/Surgical History: My differential includes but is not limited to pneumonia, migraine, bipolar disease, diabetes, atrial fibrillation, liver disease, ACS with previous NH, peptic ulcer disease, asthma Past surgical history: Hysterectomy, pacer placement Social history: Patient is a smoker. She is homeless. Smoking Status: Current every day smoker Physical Exam: Vitals noted. GENERAL: Mildly lethargic, eyes open to voice. Slow to answer questions. HEENT: Eyes normal to inspection, normal pharynx, no signs of dehydration. NECK: Normal, supple. RESPIRATORY: Clear to auscultation bilaterally, no rales, rhonchi or wheezing. CVS: Regular rate and rhythm, no rubs, murmurs, or gallops. Chest wall: Left-sided pacer. ABDOMEN: Soft, nontender, nondistended, no organomegaly. BACK: Normal to inspection, no CVA tenderness. SKIN: Normal color, no rash, warm, dry. No pallor. EXTREMITIES: No pedal edema, no calf tenderness, no Homans sign or cords, no joint swelling. NEURO/PSYCH: Lethargic, normal motor sensory exam. No obvious cranial nerve deficit. Constitutional: Initial Vital Signs Temperature (C) 37.1 C 03/25/18 17:43 Heart Rate 69 03/25/18 17:43 Respiratory Rate 24 H 03/25/18 17:43 Blood Pressure 180/98 H 03/25/18 17:43 O2 Sat (%) 95 03/25/18 17:43 O2 Delivery Mode Nasal Cannula O2 (L/minute) 2 Allergies/Adverse Reactions: codeine Allergy (Verified 03/25/18 17:40) meperidine HCl [From Demerol] Allergy (Verified 03/25/18 17:40) methadone [Methadone] Allergy (Verified 03/25/18 17:40) morphine Allergy (Verified 03/25/18 17:40) nalbuphine HCl [From Nubain] Allergy (Verified 03/25/18 17:40) Home Medications: Medication Instructions Recorded Ondansetron Odt [Zofran Odt 4 mg 4 mg PO TID PRN 09/29/17 (*)] Oxybutynin Chloride [OXYBUTYNIN 5 mg PO DAILY 09/29/17 CHLORIDE ER] lamoTRIgine [LaMICtal] 50 mg PO BID 09/29/17 Escitalopram Oxalate [Lexapro] 20 mg PO DAILY 02/03/18 Omeprazole 40 mg PO DAILY 02/03/18 Rifaximin [Xifaxan] 550 mg PO BID 02/03/18 Rizatriptan Benzoate [Maxalt Stretching Press Operator] 10 mg PO DAILY PRN 02/03/18 Lactulose 30 gm PO BID #14 02/10/18 clonazePAM [Klonopin (*)] 0.5 mg PO DAILY #30 tab 02/10/18 Propranolol Sr [Inderal LA 60mg 60 mg PO DAILY #30 cap 02/11/18 (*)] predniSONE [prednisone 20mg (RX)] 40 mg PO DAILY #5 tab 02/22/18 Medical Decision Making - Diagnostics Imaging Results: Imaging Impressions Chest X-Ray 03/25/18 17:53 Impression: Increasing perihilar opacification and peribronchial wall thickening suggesting worsening bronchitis. New opacification, which could represent pneumonia or atelectasis, in the right upper lobe toward the apex. Results called and discussed with Aria Torres M.D., on March 25, 2018 at 1855. ED Course/Re-evaluation: In the emergency department discussed possible etiologies with the patient. I answered all her questions. She was given a repeat albuterol neb. I reviewed the patient's medical record from 03/18/2018. I attempted to obtain the records from [facility]. Laboratory studies, EKG and chest x-ray were ordered. EKG: Sinus rhythm at 68. Normal axis. Left bundle branch block. White count was elevated 12.3. Hematocrit is 40.6. Platelets were 92. Because the patient was lethargic I was concerned with a respiratory cause. A blood gas was obtained. PH was 7.47. Her PO2 was 65. PCO2 was 33. Base excess was 0.6 Sodium 135. Potassium 4.3. Chloride 102. Anion gap is 7. creatinine is 0.7. Lactic acid was elevated 2.6. Patient was given a L fluid. Chest x-ray: Please refer the dictated report. Patient has worsening perihilar thickness. There is likely a right upper lobe infiltrate. Please refer the dictated report by Dr. Cardona. I discussed the results with the patient. I answered all her questions. I discussed case with the hospitalist service. Dr. Ward will admit. 17 40: Repeat lactic acid was ordered. Differential Diagnosis: My differential includes but is not limited to asthma exacerbation, pneumonia, bronchitis, bacteremia, sepsis, pulmonary embolus - Data Points Laboratory Results: Laboratory Results 03/25/18 17:35 03/25/18 17:35 03/25/18 03/25/18 03/25/18 18:10 18:00 17:35 WBC RBC Hgb Hct MCV MCH MCHC RDW Plt Count MPV Neut % (Auto) Lymph % (Auto) Ada % (Auto) Eos % (Auto) Baso % (Auto) Nucleat RBC Rel Count Absolute Neuts (auto) Absolute Lymphs (auto) Absolute Monos (auto) Absolute Eos (auto) Absolute Basos (auto) Absolute Nucleated RBC Immature Gran % Seg Neutrophils % Band Neutrophils % Lymphocytes % Monocytes % Eosinophils % Basophils % Metamyelocytes % Myelocytes % Promyelocytes % Blast Cells % Immature Gran # Absolute Seg Neuts Absolute Band Neuts Absolute Lymphocytes Absolute Monocytes Absolute Eosinophils Absolute Basophils Absolute Metamyelocyte Absolute Myelocytes Absolute Promyelocytes Absolute Plasma Cells Nucleated RBCs Atypical Lymphocytes Absolute Blast Cells Plasma Cells % Toxic Granulation Platelet Estimate Polychromasia Oval Macrocytes Smear Review By Puncture Site RIGHT RADIAL Patient Temperature 37.1 DEGREES DEGREES pCO2 33 mmHg L mmHg (34-38) pO2 65 mmHg mmHg (65-75) Total CO2 24 mEq/L mEq/L (23-27) ABG pH 7.47 H (7.35-7.45) ABG HCO3 23 mEq/L mEq/L (22-26) ABG O2 Saturation 91 % L % (92-95) ABG Base Excess 0.6 mEq/L mEq/L (-2.5-2.5) VBG Lactic Acid Total O2 Concentration 2.0 LITERS LITERS Sodium Potassium Chloride Carbon Dioxide Anion Gap BUN Creatinine Estimated GFR Glucose Calcium Total Bilirubin 1.4 mg/dL mg/dL (0.1-1.4) Conjugated Bilirubin 0.8 mg/dL H mg/dL (0.0-0.5) Unconjugated Bilirubin 0.6 mg/dL mg/dL (0.0-1.1) AST 80 IU/L H IU/L (14-46) ALT 59 IU/L H IU/L (9-52) Alkaline Phosphatase 190 IU/L H IU/L (38-126) NT-Pro-B Natriuret Pep 2870 pg/mL H pg/mL (0-125) Total Protein 6.2 g/dL L g/dL (6.3-8.2) Albumin 3.4 g/dL L g/dL (3.5-5.0) Nasal Influenza A PCR NEGATIVE FOR FLU A (NEGATIVE) Nasal Influenza B PCR NEGATIVE FOR FLU B (NEGATIVE) RSV (PCR) RSV DETECTED H (NEGATIVE) 03/25/18 03/25/18 03/25/18 17:35 17:35 17:35 WBC 12.38 10^3/uL H 10^3/uL (3.80-9.50) RBC 4.89 10^6/uL 10^6/uL (4.18-5.33) Hgb 12.3 g/dL L g/dL (12.6-16.3) Hct 40.6 % % (38.0-47.0) MCV 83.0 fL fL (81.5-99.8) MCH 25.2 pg L pg (27.9-34.1) MCHC 30.3 g/dL L g/dL (32.4-36.7) RDW 18.1 % H % (11.5-15.2) Plt Count 192 10^3/uL 10^3/uL (150-400) MPV 10.7 fL fL (8.7-11.7) Neut % (Auto) Not Reported Lymph % (Auto) Not Reported Ada % (Auto) Not Reported Eos % (Auto) Not Reported Baso % (Auto) Not Reported Nucleat RBC Rel Count Not Reported Absolute Neuts (auto) Not Reported Absolute Lymphs (auto) Not Reported Absolute Monos (auto) Not Reported Absolute Eos (auto) Not Reported Absolute Basos (auto) Not Reported Absolute Nucleated RBC Not Reported Immature Gran % Not Reported Seg Neutrophils % 79.4 % % Band Neutrophils % 2.1 % % Lymphocytes % 12.4 % % Monocytes % 5.1 % % Eosinophils % 0.0 % % Basophils % 0.0 % % Metamyelocytes % 0.0 % % Myelocytes % 0.0 % % Promyelocytes % 0.0 % % Blast Cells % 0.0 % % Immature Gran # Not Reported Absolute Seg Neuts 9.83 10^3/uL H 10^3/uL (1.70-6.50) Absolute Band Neuts 0.26 10^3/uL 10^3/uL (0.00-0.70) Absolute Lymphocytes 1.54 10^3/uL 10^3/uL (1.00-3.00) Absolute Monocytes 0.63 10^3/uL 10^3/uL (0.30-0.80) Absolute Eosinophils 0.00 10^3/uL L 10^3/uL (0.03-0.40) Absolute Basophils 0.00 10^3/uL L 10^3/uL (0.02-0.10) Absolute Metamyelocyte 0.00 10^3/mL 10^3/mL (0.00-0.00) Absolute Myelocytes 0.00 10^3/mL 10^3/mL (0.00-0.00) Absolute Promyelocytes 0.00 10^3/uL 10^3/uL (0.00-0.00) Absolute Plasma Cells 0.12 10^3/uL H 10^3/uL (0.00-0.00) Nucleated RBCs 8.2 /100 WBC H /100 WBC (0-0) Atypical Lymphocytes 1+ H Absolute Blast Cells 0.00 10^3/uL 10^3/uL (0.00-0.00) Plasma Cells % 1.0 % % Toxic Granulation PRESENT H Platelet Estimate ADEQUATE (ADEQ) Polychromasia 1+ H Oval Macrocytes 1+ H Smear Review By Pending Puncture Site Patient Temperature pCO2 pO2 Total CO2 ABG pH ABG HCO3 ABG O2 Saturation ABG Base Excess VBG Lactic Acid 2.6 mmol/L H mmol/L (0.7-2.1) Total O2 Concentration Sodium 135 mEq/L mEq/L (135-145) Potassium 4.3 mEq/L mEq/L (3.5-5.2) Chloride 102 mEq/L mEq/L (97-110) Carbon Dioxide 26 mEq/l mEq/l (22-31) Anion Gap 7 mEq/L mEq/L (6-14) BUN 16 mg/dL mg/dL (7-23) Creatinine 0.7 mg/dL mg/dL (0.6-1.0) Estimated GFR > 60 Glucose 67 mg/dL L mg/dL (70-100) Calcium 9.4 mg/dL mg/dL (8.5-10.4) Total Bilirubin Conjugated Bilirubin Unconjugated Bilirubin AST ALT Alkaline Phosphatase NT-Pro-B Natriuret Pep Total Protein Albumin Nasal Influenza A PCR Nasal Influenza B PCR RSV (PCR) Medications Given: Discontinued Medications Albuterol (Proventil Neb) 3 ml IH EDNOW ONE Stop: 03/25/18 17:53 Last Admin: 03/25/18 18:03 Dose: 3 ml Sodium Chloride (Ns) 1,000 mls @ 0 mls/hr IV ONCE ONE; Wide Open PRN Reason: Protocol Stop: 03/25/18 18:07 Last Admin: 03/25/18 17:45 Dose: 1,000 mls Ceftriaxone Sodium/Dextrose (Rocephin 1 Gm (Premix)) 50 mls @ 100 mls/hr IV EDNOW ONE PRN Reason: Protocol Stop: 03/25/18 19:23 Last Admin: 03/25/18 19:10 Dose: 50 mls Departure - Departure Disposition: [facility] Inpatient Acute Clinical Impression: Lethargy Dyspnea Qualifiers: Dyspnea type: unspecified Qualified Code(s): R06.00 - Dyspnea, unspecified Right upper lobe pneumonia Qualifiers: Pneumonia type: due to unspecified organism Qualified Code(s): J18.1 - Lobar pneumonia, unspecified organism Condition: Good
[2018-03-25 17:55] LABS: PLATELET COUNT 192 10^3/uL (150-400)
[2018-03-25] MEDS ORDERED: NS 1,000 ML IV ONE (18:06)
[2018-03-25] MEDS ORDERED: AZITHROMYCIN IV 500 MG in D5W 250 ML IV ONE (18:54)
[2018-03-25] MEDS ORDERED: AZITHROMYCIN IV 500 MG in NS 250 ML IV ONE (19:00)
[2018-03-25] MEDS ORDERED: ONDANSETRON DISINTEGRATING 4 MG TAB PO PRN (20:23)
[2018-03-25] MEDS ORDERED: HYDROmorphONE/DILAUDID 1 MG/ML INJ IVP PRN (20:23)
[2018-03-25] MEDS ORDERED: oxyCODONE IR 5 MG TAB PO PRN (20:23)
[2018-03-25] MEDS ORDERED: ALBUTEROL 3 ML DEYVIAL IH PRN (20:23)
[2018-03-25] MEDS ORDERED: ONDANSETRON 4 MG/2 ML VIAL IVP PRN (20:23)
[2018-03-25] MEDS ORDERED: PROMETHAZINE HCL 25 MG/ML INJ IVP PRN (20:23)
[2018-03-25] MEDS: IPRATROPIUM/ALBUTEROL 3 ML DEYVIAL IH SCH (21:04)
--- NOTE | 2018-03-25 22:40 | CPEKG ---
Test Reason : OPEN Blood Pressure : / mmHG Vent. Rate : 068 BPM Atrial Rate : 068 BPM P-R Int : 168 ms QRS Dur : 143 ms QT Int : 434 ms P-R-T Axes : 072 028 072 degrees QTc Int : 462 ms Sinus rhythm Probable left atrial enlargement Left bundle branch block Confirmed by Aria Torres ([id number]) on 03/25/2018 10:39:48 PM Referred By: Confirmed By:Aria Torres
--- NOTE | 2018-03-25 23:24 | PDGENHP ---
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 She is awake but somnolent at the time of my evaluation and having difficulty answering questions appropriately, perseverating on needing to go to the bathroom, and therefore this history is limited by that. She apparently was noted at the [facility]pc to be breathing rapidly and her o2 sats were in the high 80s. She tells me she has had some cough and has not been feeling very well, but cannot elaborate. She states she no longer smokes cigarettes but quit 2-3 months ago. History Information - Allergies/Home Medication List Allergies/Adverse Reactions: codeine Allergy (Verified 03/25/18 17:40) meperidine HCl [From Demerol] Allergy (Verified 03/25/18 17:40) methadone [Methadone] Allergy (Verified 03/25/18 17:40) morphine Allergy (Verified 03/25/18 17:40) nalbuphine HCl [From Nubain] Allergy (Verified 03/25/18 17:40) Home Medications: Oxybutynin Chloride [OXYBUTYNIN CHLORIDE ER] 5 mg PO DAILY 09/29/17 [Last Taken 02/03/18] lamoTRIgine [LaMICtal] 50 mg PO BID 09/29/17 [Last Taken 02/02/18] Escitalopram Oxalate [Lexapro] 20 mg PO DAILY 02/03/18 [Last Taken 02/02/18] Omeprazole 40 mg PO DAILY 02/03/18 [Last Taken 02/02/18] Rifaximin [Xifaxan] 550 mg PO BID 02/03/18 [Last Taken 02/02/18] Rizatriptan Benzoate [Maxalt Dowel Setting Machine Operator] 10 mg PO DAILY PRN 02/03/18 [Last Taken Unknown] clonazePAM [Klonopin (*)] 0.5 mg PO HS PRN 03/25/18 [Last Taken Unknown] I have personally reviewed and updated: family history, medical history, social history, surgical history - Past Medical History atrial fibrillation, coronary artery disease, GI bleed, migraines Additional medical history: cirrhosis 2/2 COMER. chronic hepatic encephalopathy. hx of GI bleed due to PUD. pancytopenia due to liver disease - Surgical History Reports: pacemaker/AICD - Family History Positive for: non-pertinent - Social History Smoking Status: Current every day smoker (may have recently quit) Alcohol Use: None Drug Use: None Additional social history: homeless, uses a walker Review of Systems Review of Systems: ROS: 10pt was reviewed & negative except for what was stated in HPI & below Physical Exam Physical Exam: Temp Pulse Resp BP Pulse Ox 36.7 C 74 20 155/83 H 95 03/25/18 21:55 03/25/18 21:55 03/25/18 21:55 03/25/18 21:55 03/25/18 21:55 O2 (L/minute) 3 Constitutional: no apparent distress, chronically ill appearing, unkempt Eyes: PERRL, anicteric sclera Ears, Nose, Mouth, Throat: moist mucous membranes, poor dentition Cardiovascular: regular rate and rhythym, no murmur, rub, or gallop, No edema Respiratory: no respiratory distress, reduced air movement, expiratory wheeze Gastrointestinal: normoactive bowel sounds, soft, non-tender abdomen Genitourinary: no bladder tenderness Skin: warm, normal color Musculoskeletal: full muscle strength Neurologic: CN II-XII Intact, No AAOx3 Psychiatric: encephalopathic Lab Data & Imaging Review 03/25/18 17:35 03/25/18 17:35 WBC 12.38 10^3/uL (3.80-9.50) H 03/25/18 17:35 RBC 4.89 10^6/uL (4.18-5.33) 03/25/18 17:35 Hgb 12.3 g/dL (12.6-16.3) L 03/25/18 17:35 Hct 40.6 % (38.0-47.0) 03/25/18 17:35 MCV 83.0 fL (81.5-99.8) 03/25/18 17:35 MCH 25.2 pg (27.9-34.1) L 03/25/18 17:35 MCHC 30.3 g/dL (32.4-36.7) L 03/25/18 17:35 RDW 18.1 % (11.5-15.2) H 03/25/18 17:35 Plt Count 192 10^3/uL (150-400) 03/25/18 17:35 MPV 10.7 fL (8.7-11.7) 03/25/18 17:35 Neut % (Auto) Not Reported 03/25/18 17:35 Lymph % (Auto) Not Reported 03/25/18 17:35 [place] % (Auto) Not Reported 03/25/18 17:35 Eos % (Auto) Not Reported 03/25/18 17:35 Baso % (Auto) Not Reported 03/25/18 17:35 Nucleat RBC Rel Count Not Reported 03/25/18 17:35 Absolute Neuts (auto) Not Reported 03/25/18 17:35 Absolute Lymphs (auto) Not Reported 03/25/18 17:35 Absolute Monos (auto) Not Reported 03/25/18 17:35 Absolute Eos (auto) Not Reported 03/25/18 17:35 Absolute Basos (auto) Not Reported 03/25/18 17:35 Absolute Nucleated RBC Not Reported 03/25/18 17:35 Immature Gran % Not Reported 03/25/18 17:35 Seg Neutrophils % 79.4 % 03/25/18 17:35 Band Neutrophils % 2.1 % 03/25/18 17:35 Lymphocytes % 12.4 % 03/25/18 17:35 Monocytes % 5.1 % 03/25/18 17:35 Eosinophils % 0.0 % 03/25/18 17:35 Basophils % 0.0 % 03/25/18 17:35 Metamyelocytes % 0.0 % 03/25/18 17:35 Myelocytes % 0.0 % 03/25/18 17:35 Promyelocytes % 0.0 % 03/25/18 17:35 Blast Cells % 0.0 % 03/25/18 17:35 Immature Gran # Not Reported 03/25/18 17:35 Absolute Seg Neuts 9.83 10^3/uL (1.70-6.50) H 03/25/18 17:35 Absolute Band Neuts 0.26 10^3/uL (0.00-0.70) 03/25/18 17:35 Absolute Lymphocytes 1.54 10^3/uL (1.00-3.00) 03/25/18 17:35 Absolute Monocytes 0.63 10^3/uL (0.30-0.80) 03/25/18 17:35 Absolute Eosinophils 0.00 10^3/uL (0.03-0.40) L 03/25/18 17:35 Absolute Basophils 0.00 10^3/uL (0.02-0.10) L 03/25/18 17:35 Absolute Metamyelocyte 0.00 10^3/mL (0.00-0.00) 03/25/18 17:35 Absolute Myelocytes 0.00 10^3/mL (0.00-0.00) 03/25/18 17:35 Absolute Promyelocytes 0.00 10^3/uL (0.00-0.00) 03/25/18 17:35 Absolute Plasma Cells 0.12 10^3/uL (0.00-0.00) H 03/25/18 17:35 Nucleated RBCs 8.2 /100 WBC (0-0) H 03/25/18 17:35 Atypical Lymphocytes 1+ H 03/25/18 17:35 Absolute Blast Cells 0.00 10^3/uL (0.00-0.00) 03/25/18 17:35 Plasma Cells % 1.0 % 03/25/18 17:35 Toxic Granulation PRESENT H 03/25/18 17:35 Platelet Estimate ADEQUATE (ADEQ) 03/25/18 17:35 Polychromasia 1+ H 03/25/18 17:35 Oval Macrocytes 1+ H 03/25/18 17:35 Puncture Site RIGHT RADIAL 03/25/18 18:00 Patient Temperature 37.1 DEGREES 03/25/18 18:00 pCO2 33 mmHg (34-38) L 03/25/18 18:00 pO2 65 mmHg (65-75) 03/25/18 18:00 Total CO2 24 mEq/L (23-27) 03/25/18 18:00 ABG pH 7.47 (7.35-7.45) H 03/25/18 18:00 ABG HCO3 23 mEq/L (22-26) 03/25/18 18:00 ABG O2 Saturation 91 % (92-95) L 03/25/18 18:00 ABG Base Excess 0.6 mEq/L (-2.5-2.5) 03/25/18 18:00 VBG Lactic Acid 2.0 mmol/L (0.7-2.1) 03/25/18 19:44 Total O2 Concentration 2.0 LITERS 03/25/18 18:00 Sodium 135 mEq/L (135-145) 03/25/18 17:35 Potassium 4.3 mEq/L (3.5-5.2) 03/25/18 17:35 Chloride 102 mEq/L (97-110) 03/25/18 17:35 Carbon Dioxide 26 mEq/l (22-31) 03/25/18 17:35 Anion Gap 7 mEq/L (6-14) 03/25/18 17:35 BUN 16 mg/dL (7-23) 03/25/18 17:35 Creatinine 0.7 mg/dL (0.6-1.0) 03/25/18 17:35 Estimated GFR > 60 03/25/18 17:35 Glucose 67 mg/dL (70-100) L 03/25/18 17:35 Calcium 9.4 mg/dL (8.5-10.4) 03/25/18 17:35 Total Bilirubin 1.4 mg/dL (0.1-1.4) 03/25/18 17:35 Conjugated Bilirubin 0.8 mg/dL (0.0-0.5) H 03/25/18 17:35 Unconjugated Bilirubin 0.6 mg/dL (0.0-1.1) 03/25/18 17:35 AST 80 IU/L (14-46) H 03/25/18 17:35 ALT 59 IU/L (9-52) H 03/25/18 17:35 Alkaline Phosphatase 190 IU/L (38-126) H 03/25/18 17:35 NT-Pro-B Natriuret Pep 2870 pg/mL (0-125) H 03/25/18 17:35 Total Protein 6.2 g/dL (6.3-8.2) L 03/25/18 17:35 Albumin 3.4 g/dL (3.5-5.0) L 03/25/18 17:35 Nasal Influenza A PCR NEGATIVE FOR FLU A (NEGATIVE) 03/25/18 18:10 Nasal Influenza B PCR NEGATIVE FOR FLU B (NEGATIVE) 03/25/18 18:10 RSV (PCR) RSV DETECTED (NEGATIVE) H 01/02/19 18:10 Visualized and Interpreted Chest x-ray results: Yes Chest X-Ray results: infiltrate (rul) Visualized and Interpreted EKG results: Yes EKG Interpretation: Positive for: left bundle branch block, normal sinsus rhythm Assessment & Plan Assessment: Dyspnea (Acute) Lethargy (Acute) Right upper lobe pneumonia (Acute) 68 yo F with MMI including 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 with chronic hepatic encephalopathy and poor medical compliance brought in respiratory distress from homeless [facility] with e/o pna on imaging # pna: with evidence of acute bronchitis and what appears to be a new RUL infiltrate likely representing pna, started on ctx/azithro which will be continued for now, suspect underlying copd contributing as next # copd with acute exacerbation: not clear from records that she carries this diagnosis but long hx of tobacco use with wheeze and decreased bs throughout, will schedule duonebs, continue prn albuterol and prednisone daily # hepatic encephalopathy: chronic issue for patient with underlying cirrhosis and med non compliance, will start lactulose/rifaximin # cirrhosis: appears relatively well compensated currently, bili wnl, mild transaminitis and not significantly volume overloaded # CAD: with old LBBB that is unchanged from prior, no complaints of chest pain, continue op meds # afib: s/p PPM # hx of UGIB # observation status Patient new to my care. Old records reviewed and summarized as above. Care plan reviewed with ER doctor as above.
[2018-03-26 05:01] LABS: PLATELET COUNT 91 10^3/uL (150-400)
[2018-03-26] MEDS: IPRATROPIUM/ALBUTEROL 3 ML DEYVIAL IH SCH ×4 (05:21→21:28)
--- NOTE | 2018-03-26 08:19 | ASMTLACE ---
LEYDA Comorbidities - select Answers: Coronary Artery Disease all that apply Dementia Diabetes (uncontrolled or controlled) Opioid dependence / Chronic pain Peptic ulcer disease Previous myocardial infarction Other Notes: AFib # of Emergency department Answers: 5-8 visits in the last 6 months Social determinants Answers: History of substance abuse (ETOH, street drugs, prescription drugs, etc.) Homelessness (street, halfway) Mental health diagnosis (anxiety, depression, pers onality disorders, etc.) Score: 27 Date Signed: 03/26/2018 08:18 AM Electronically Signed By:Saumya Allison
[2018-03-26] MEDS: RIFAXIMIN 550 MG TAB PO SCH ×2 (10:28→21:06)
[2018-03-26] MEDS: ESCITALOPRAM OXALATE 10 MG TAB PO SCH (10:29)
[2018-03-26] MEDS: lamoTRIgine 100 MG TAB PO SCH ×2 (10:29→21:06)
[2018-03-26] MEDS: PANTOPRAZOLE SODIUM 40 MG TAB PO SCH (10:30)
[2018-03-26] MEDS: LACTULOSE 20 GM/30 ML UDCUP PO SCH ×3 (10:30→21:07)
[2018-03-26] MEDS: predniSONE 20 MG TAB PO SCH (10:30)
[2018-03-26] MEDS: OXYBUTYNIN 5 MG EXT REL TAB PO SCH (11:55)
--- NOTE | 2018-03-26 12:26 | HOSPPROG ---
Hospitalist Progress Note Assessment/Plan: 68 yo F with MMI including 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 with chronic hepatic encephalopathy and poor medical compliance brought in respiratory distress from homeless snf with e/o pna on imaging # pna: with evidence of acute bronchitis and what appears to be a new RUL infiltrate likely representing pna, continiue ctx/azithro, suspect underlying copd contributing as next # copd with acute exacerbation: not clear from records that she carries this diagnosis but long hx of tobacco use with wheeze and decreased bs throughout, will continue scheduled duonebs, continue prn albuterol and prednisone daily # hepatic encephalopathy: chronic issue for patient with underlying cirrhosis and med non compliance, will cotinue lactulose/rifaximin # cirrhosis: appears relatively well compensated currently, bili wnl, mild transaminitis and not significantly volume overloaded # CAD: with old LBBB that is unchanged from prior, no complaints of chest pain, continue op meds # afib: s/p PPM # hx of UGIB Dispo: Pending clinical course Subjective: Patient tearful this morning about being homeless and not being taken care of by her 5 children Objective: Vital Signs Temp Pulse Resp BP Pulse Ox 36.7 C 61 17 155/66 H 91 L 03/26/18 11:54 03/26/18 11:54 03/26/18 11:54 03/26/18 11:54 03/26/18 11:54 Laboratory Results 03/26/18 03:41 03/26/18 03:41 03/25/18 03/26/18 03/27/18 05:59 05:59 05:59 Intake Total 355 60 Output Total 300 Balance 55 60 - Physical Exam Constitutional: chronically ill appearing, unkempt Eyes: PERRL Ears, Nose, Mouth, Throat: moist mucous membranes Cardiovascular: regular rate and rhythym Respiratory: reduced air movement Gastrointestinal: soft, non-tender abdomen Musculoskeletal: full muscle strength Neurologic: AAOx3 Psychiatric: depressed ICD10 Worksheet Patient Problems: Problems Problem Status Onset Dyspnea Acute Lethargy Acute Right upper lobe pneumonia Acute Abdominal pain Acute Chest pain Acute GI bleed Acute Pneumonia Acute
[2018-03-26] MEDS: NICOTINE 14 MG/24 HR PATCH TD SCH (14:06)
--- NOTE | 2018-03-26 14:50 | ASMTCMCOM ---
CM Note CM Note Notes: Pt s a 68 y/o female admitted for pneumonia and asthma. Pt reports that she has 5 children that are not involved. Pt reports that she has been to [facility] in the past and would like to go back. ULTC-100 started and submitted to [facility]. OT is recommending SNF. PT is pending. CM to follow. Plan: TBD Date Signed: 03/26/2018 02:50 PM Electronically Signed By:CARLOS Levy
--- NOTE | 2018-03-26 15:44 | PDMN ---
Medical Necessity Medical necessity: MCG M282c PNA RUL infiltrate with underlying COPD- still with 91 % on 2L- status changed to INPT 03/26/18 for ongoing med nec care- further treatment of PNA/ COPD in homeless pt. pt also with PMHX: hepatic encephalopathy- non compliant, cirrhosis, CAD, UGIB
[2018-03-26] MEDS: AZITHROMYCIN IV 500 MG in NS 250 ML IV SCH (21:05)
[2018-03-26] MEDS: clonazePAM 0.5 MG TAB PO PRN (21:06)
[2018-03-27] MEDS: HYDROCODONE/APAP 5/325 TAB PO PRN ×2 (01:23→21:30)
[2018-03-27] MEDS: ACETAMINOPHEN 325 MG TAB PO PRN (04:47)
[2018-03-27] MEDS: IPRATROPIUM/ALBUTEROL 3 ML DEYVIAL IH SCH ×4 (05:32→21:06)
[2018-03-27] MEDS: RIFAXIMIN 550 MG TAB PO SCH ×2 (08:00→20:21)
[2018-03-27] MEDS: predniSONE 20 MG TAB PO SCH (08:00)
[2018-03-27] MEDS: LACTULOSE 20 GM/30 ML UDCUP PO SCH ×3 (08:00→20:21)
[2018-03-27] MEDS: lamoTRIgine 100 MG TAB PO SCH ×2 (08:00→20:21)
[2018-03-27] MEDS: ESCITALOPRAM OXALATE 10 MG TAB PO SCH (08:00)
[2018-03-27] MEDS: OXYBUTYNIN 5 MG EXT REL TAB PO SCH (08:00)
[2018-03-27] MEDS: PANTOPRAZOLE SODIUM 40 MG TAB PO SCH (08:00)
[2018-03-27] MEDS: NICOTINE 14 MG/24 HR PATCH TD SCH (08:00)
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
--- NOTE | 2018-03-27 16:45 | HOSPPROG ---
Hospitalist Progress Note Assessment/Plan: 68 yo F with MMI including 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 with chronic hepatic encephalopathy and poor medical compliance brought in respiratory distress from homeless long-term with e/o pna on imaging # pna: with evidence of acute bronchitis and what appears to be a new RUL infiltrate likely representing pna, continiue ctx/azithro, suspect underlying copd contributing as next # copd with acute exacerbation: not clear from records that she carries this diagnosis but long hx of tobacco use with wheeze and decreased bs throughout, will continue scheduled duonebs, continue prn albuterol and prednisone daily # hepatic encephalopathy: chronic issue for patient with underlying cirrhosis and med non compliance, will cotinue lactulose/rifaximin # cirrhosis: appears relatively well compensated currently, bili wnl, mild transaminitis and not significantly volume overloaded # CAD: with old LBBB that is unchanged from prior, no complaints of chest pain, continue op meds # afib: s/p PPM # hx of UGIB Plan: per above. cont with current meds. anticipate d/c soon pt new to my care. records reviewed extensively d/w nursing, CM, pharmacy Subjective: no cp or sob. no n/v. Objective: Vital Signs Temp Pulse Resp BP Pulse Ox 36.8 C 67 21 H 133/67 H 86 L 03/27/18 15:57 03/27/18 15:57 03/27/18 15:57 03/27/18 15:57 03/27/18 15:57 Laboratory Results 03/27/18 03:48 03/27/18 03:48 03/26/18 03/27/18 03/28/18 05:59 05:59 05:59 Intake Total 1710 780 Output Total 250 325 Balance 1460 455 - Physical Exam Constitutional: no apparent distress Eyes: PERRL, EOMI Ears, Nose, Mouth, Throat: moist mucous membranes, hearing normal Cardiovascular: regular rate and rhythym, edema (trace) Respiratory: reduced air movement, expiratory wheeze Gastrointestinal: normoactive bowel sounds, soft, non-tender abdomen Skin: warm Musculoskeletal: generalized weakness Neurologic: AAOx3 Psychiatric: interacting appropriately, not anxious, not encephalopathic Lymph, Heme, Immunologic: No petechiae ICD10 Worksheet Patient Problems: Problems Problem Status Onset Dyspnea Acute Lethargy Acute Right upper lobe pneumonia Acute Abdominal pain Acute Chest pain Acute GI bleed Acute Pneumonia Acute
[2018-03-27] MEDS: AZITHROMYCIN IV 500 MG in NS 250 ML IV SCH (20:21)
[2018-03-27] MEDS: clonazePAM 0.5 MG TAB PO PRN (21:30)
[2018-03-28] MEDS: IPRATROPIUM/ALBUTEROL 3 ML DEYVIAL IH SCH ×4 (05:50→20:38)
[2018-03-28] MEDS: BENZONATATE 100 MG CAP PO PRN ×2 (06:15→19:59)
[2018-03-28] MEDS: OXYBUTYNIN 5 MG EXT REL TAB PO SCH (09:09)
[2018-03-28] MEDS: LACTULOSE 20 GM/30 ML UDCUP PO SCH ×3 (09:09→21:16)
[2018-03-28] MEDS: lamoTRIgine 100 MG TAB PO SCH ×2 (09:09→19:59)
[2018-03-28] MEDS: ESCITALOPRAM OXALATE 10 MG TAB PO SCH (09:09)
[2018-03-28] MEDS: RIFAXIMIN 550 MG TAB PO SCH ×2 (09:10→20:00)
[2018-03-28] MEDS: PANTOPRAZOLE SODIUM 40 MG TAB PO SCH (09:10)
[2018-03-28] MEDS: predniSONE 20 MG TAB PO SCH (09:10)
[2018-03-28] MEDS: NICOTINE 14 MG/24 HR PATCH TD SCH (09:11)
[2018-03-28] MEDS ORDERED: FUROSEMIDE 20 MG/2 ML VIAL IVP ONE (12:47)
--- NOTE | 2018-03-28 12:51 | HOSPPROG ---
Hospitalist Progress Note Assessment/Plan: 68 yo F with MMI including 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 with chronic hepatic encephalopathy and poor medical compliance brought in respiratory distress from homeless [facility] with e/o pna on imaging # pna: with evidence of acute bronchitis and what appears to be a new RUL infiltrate likely representing pna, continiue ctx/azithro, suspect underlying copd contributing as next #RSV # copd with acute exacerbation: not clear from records that she carries this diagnosis but long hx of tobacco use with wheeze and decreased bs throughout, will continue scheduled duonebs, continue prn albuterol and prednisone daily # hepatic encephalopathy: chronic issue for patient with underlying cirrhosis and med non compliance, will cotinue lactulose/rifaximin # cirrhosis: appears relatively well compensated currently, bili wnl, mild transaminitis and not significantly volume overloaded # CAD: with old LBBB that is unchanged from prior, no complaints of chest pain, continue op meds # afib: s/p PPM # hx of UGIB #Pedal Edema #ESPITIA/Migraine #HTN Plan: cont with current abx, check pc in a.m. cont steroids/inhaler one time Lasix, should help with BP as well. If not, consider starting a BP med Nebs Maxalt for Migraine Awaiting placement Subjective: has a ESPITIA. BP slightly elevated. Some pedal edema Objective: Vital Signs Temp Pulse Resp BP Pulse Ox 37.1 C 82 20 160/79 H 93 03/28/18 07:32 03/28/18 07:32 03/28/18 10:52 03/28/18 07:32 03/28/18 10:52 Laboratory Results 03/27/18 03:48 03/27/18 03:48 03/27/18 03/28/18 03/29/18 05:59 05:59 05:59 Intake Total 1710 2560 Output Total 250 1325 Balance 1460 1235 - Physical Exam Constitutional: no apparent distress Eyes: PERRL Ears, Nose, Mouth, Throat: moist mucous membranes, hearing normal Cardiovascular: regular rate and rhythym, edema Respiratory: no respiratory distress, no rales or rhonchi, reduced air movement Gastrointestinal: normoactive bowel sounds, soft, non-tender abdomen, no palpable masses Skin: warm Neurologic: AAOx3 Psychiatric: interacting appropriately, not anxious, not encephalopathic Lymph, Heme, Immunologic: No petechiae ICD10 Worksheet Patient Problems: Problems Problem Status Onset Dyspnea Acute Lethargy Acute Right upper lobe pneumonia Acute Abdominal pain Acute Chest pain Acute GI bleed Acute Pneumonia Acute
[2018-03-28] MEDS: Rizatriptan Benzoate [Maxalt Mlt] 10 MG PO PRN (13:05)
[2018-03-28] MEDS: AZITHROMYCIN IV 500 MG in NS 250 ML IV SCH (19:59)
[2018-03-28] MEDS: clonazePAM 0.5 MG TAB PO PRN (21:16)
[2018-03-28] MEDS: ACETAMINOPHEN 325 MG TAB PO PRN (21:16)
[2018-03-29] MEDS: IPRATROPIUM/ALBUTEROL 3 ML DEYVIAL IH SCH ×4 (06:12→20:48)
[2018-03-29] MEDS: NICOTINE 14 MG/24 HR PATCH TD SCH (09:11)
[2018-03-29] MEDS: PANTOPRAZOLE SODIUM 40 MG TAB PO SCH (09:11)
[2018-03-29] MEDS: LACTULOSE 20 GM/30 ML UDCUP PO SCH ×3 (09:11→22:24)
[2018-03-29] MEDS: lamoTRIgine 100 MG TAB PO SCH ×2 (09:12→22:23)
[2018-03-29] MEDS: ESCITALOPRAM OXALATE 10 MG TAB PO SCH (09:12)
[2018-03-29] MEDS: OXYBUTYNIN 5 MG EXT REL TAB PO SCH (09:12)
[2018-03-29] MEDS: predniSONE 20 MG TAB PO SCH (09:12)
[2018-03-29] MEDS: RIFAXIMIN 550 MG TAB PO SCH ×2 (09:14→22:24)
[2018-03-29] MEDS ORDERED: FUROSEMIDE 20 MG/2 ML VIAL IVP ONE (14:12)
--- NOTE | 2018-03-29 14:20 | HOSPPROG ---
Hospitalist Progress Note Assessment/Plan: 68 yo F with MMI including 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 with chronic hepatic encephalopathy and poor medical compliance brought in respiratory distress from homeless [facility] with e/o pna on imaging # pna: with evidence of acute bronchitis and what appears to be a new RUL infiltrate likely representing pna, continiue ctx/azithro, suspect underlying copd contributing as next #RSV # copd with acute exacerbation: not clear from records that she carries this diagnosis but long hx of tobacco use with wheeze and decreased bs throughout, will continue scheduled duonebs, continue prn albuterol and prednisone daily # hepatic encephalopathy: chronic issue for patient with underlying cirrhosis and med non compliance, will cotinue lactulose/rifaximin # cirrhosis: appears relatively well compensated currently, bili wnl, mild transaminitis and not significantly volume overloaded # CAD: with old LBBB that is unchanged from prior, no complaints of chest pain, continue op meds # afib: s/p PPM # hx of UGIB #Pedal Edema #ESPITIA/Migraine #HTN Plan: Additional Lasix today BP remains elevated. Would like to diurese further prior to initiating BP med abx inhaler steroid check TTE Maxalt for Migraine Awaiting placement Subjective: breathing is better. Good diuresis overnight. still with pedal edema Objective: Vital Signs Temp Pulse Resp BP Pulse Ox 36.9 C 72 18 163/97 H 93 03/29/18 08:00 03/29/18 10:59 03/29/18 10:59 03/29/18 08:00 03/29/18 10:59 Laboratory Results 03/27/18 03:48 03/27/18 03:48 03/28/18 03/29/18 03/30/18 05:59 05:59 05:59 Intake Total 2560 1030 Output Total 1325 Balance 1235 1030 - Physical Exam Constitutional: no apparent distress Eyes: PERRL Ears, Nose, Mouth, Throat: moist mucous membranes Cardiovascular: regular rate and rhythym, edema Respiratory: reduced air movement, rhonchi Gastrointestinal: normoactive bowel sounds, soft, non-tender abdomen Skin: warm Neurologic: AAOx3 Psychiatric: interacting appropriately, not anxious, not encephalopathic Lymph, Heme, Immunologic: No petechiae ICD10 Worksheet Patient Problems: Problems Problem Status Onset Dyspnea Acute Lethargy Acute Right upper lobe pneumonia Acute Abdominal pain Acute Chest pain Acute GI bleed Acute Pneumonia Acute
[2018-03-29] MEDS: HYDROCODONE/APAP 5/325 TAB PO PRN (16:40)
[2018-03-29] MEDS: AZITHROMYCIN IV 500 MG in NS 250 ML IV SCH (20:14)
--- NOTE | 2018-03-29 20:34 | ECHO ---
[email or web address] [address] [address] Main: [phone] Fax: Transthoracic Echocardiogram Name: SHIVA FORBES MR#: [id number] Study Date: 03/29/2018 Study Time: 03:39 PM Date of : 1950 Age: 68 year(s) Height: 157.5 cm (62 in.) Weight: 74.84 kg (165 lb.) BSA: 1.76 m2 Gender: Female Examination: Echo Indication: Question CHF/history CO/pacer Image Quality: Contrast: Requested by: Arcadio Serrano BP: 138 mmHg/70 mmHg Heart Rate: Rhythm: Indication: Question CHF/history CO/pacer Procedure Staff Rn Shift Mgr: Shasta Rosa [facility] Reading Physician: Ulysses Gabriel MD Requesting Provider: Conclusions: Normal size left ventricle. Mild concentric LV hypertrophy. The ejection fraction is estimated to be 55-60 %. Diastolic dysfunction is present. . Normal size right ventricle. There is a pacemaker lead noted in the right ventricle. The left atrium is moderately dilated. The right atrium is mildly dilated. Mild-moderate mitral annular calcification. Mild mitral valve regurgitation is present. Question chordal ABIGAIL causing a mild LVOT obstruction.. The aortic valve is normal in appearance and function. The aortic valve is tri-leaflet. Moderate to severe tricuspid valve regurgitation. RVSP is 43-48mmHG.. No pericardial effusion. Measurements: Chambers Valvular Assessment AV/MV Valvular Assessment TV/PV Normal Normal Normal Name Value Range Name Value Range Name Value Range Ao Sis (MM): 3.1 cm (2.2 cm-3.7 AV Vmax: 2.15 m/s (1 m/s-1.7 TR Vmax: 3.16 mm/s ( - ) cm) m/s) TR PGmax: 40 mmHg ( - ) IVSd (2D): 1.4 cm (0.6 cm-1.1 AV meanP mmHg ( - ) syst. PAP: 50 mmHg ( - ) cm) DEEP (VTI): 2.1 cm ( - ) LVDd (2D): 4.6 cm (3.9 cm-5.3 MV E Vmax: 0.69 m/s ( - ) cm) MV A Vmax: 1.05 m/s ( - ) LVDs (2D): 3.7 cm (2.1 cm-4 MV E/A: 0.66 ( - ) cm) LVPWd (2D): 1.4 cm ( - ) Patient: SHIVA FORBES Study Date: 03/29/2018 Page 1 of 2 03:39 PM LVOTd 1.9 cm 1.9 cm mm LVEF (MOD4): 59 % (>=55 %) EF Range: 55-60 % Continued Measurements: Chambers Valvular Assessment AV/MV Valvular Assessment TV/PV Name Value Name Value Name Value LADs: 3.6 cm MV E' Septal: 0.05 m/s CVP (est.): 10 mmHg LADs Lon.3 cm MV E/E' Septal: 14.10 LA Area: 24.7 cm2 MV E/E' Lateral: 11.00 LA Volume: 83 ml LA Volume Index: 47.2 ml/m2 Additional Vessels Name Value Ao Ascendin.0 cm Findings: Left Ventricle: Normal size left ventricle. Mild concentric LV hypertrophy. The ejection fraction is estimated to be 55-60 %. Diastolic dysfunction is present. . Question LV base inferior akinesis otherwise normal segmental wall motion.. Right Ventricle: Normal size right ventricle. There is a pacemaker lead noted in the right ventricle. Left Atrium: The left atrium is moderately dilated. Right Atrium: The right atrium is mildly dilated. Mitral Valve: Mild-moderate mitral annular calcification. Mild mitral valve regurgitation is present. Question chordal ABIGAIL causing a mild LVOT obstruction.. Aortic Valve: The aortic valve is normal in appearance and function. The aortic valve is tri-leaflet. Tricuspid Valve: The tricuspid valve is normal in appearance and function. Moderate to severe tricuspid valve regurgitation. RVSP is 43-48mmHG.. Pulmonic Valve: The pulmonic valve is normal in appearance and function. Aorta: The aorta is normal. Pericardium: No pericardial effusion. (No Signature Object) Patient: SHIVA FORBES Study Date: 03/29/2018 Page 2 of 2 03:39 PM [id number]
[2018-03-30] MEDS: IPRATROPIUM/ALBUTEROL 3 ML DEYVIAL IH SCH ×4 (02:43→21:52)
[2018-03-30] MEDS: GUAIFENESIN/DM 10 ML UDCUP PO PRN ×3 (03:04→15:43)
[2018-03-30] MEDS: NICOTINE 14 MG/24 HR PATCH TD SCH (08:04)
[2018-03-30] MEDS: RIFAXIMIN 550 MG TAB PO SCH ×2 (08:05→21:19)
[2018-03-30] MEDS: PANTOPRAZOLE SODIUM 40 MG TAB PO SCH (08:05)
[2018-03-30] MEDS: OXYBUTYNIN 5 MG EXT REL TAB PO SCH (08:06)
[2018-03-30] MEDS: lamoTRIgine 100 MG TAB PO SCH ×2 (08:06→21:18)
[2018-03-30] MEDS: ESCITALOPRAM OXALATE 10 MG TAB PO SCH (08:07)
[2018-03-30] MEDS: predniSONE 20 MG TAB PO SCH (08:08)
[2018-03-30] MEDS: LACTULOSE 20 GM/30 ML UDCUP PO SCH ×3 (08:10→21:18)
--- NOTE | 2018-03-30 11:54 | HOSPPROG ---
Hospitalist Progress Note Assessment/Plan: 68 yo F with MMI including 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 with chronic hepatic encephalopathy and poor medical compliance brought in respiratory distress from homeless [facility] with e/o pna on imaging # pna -Ceftriaxone and azithro (mar 26) -+RSV complicating the above -procalcitonin 0.26 so likely bacterial -she also has underlying COPD #RSV -supportive care # copd with acute exacerbation -will continue scheduled duonebs, continue prn albuterol, prednisone 40 mg daily # hepatic encephalopathy - chronic issue for patient with underlying cirrhosis and med non compliance - lactulose/rifaximin # cirrhosis -well compensated -LFT's improved #r knee pain -says she fell recently -no swelling, but pain w flexion -get x rays #rash/looks like Shingles (VZV) even though on 2 dermatomes -will start Valtrex tid x 7 days # CAD -with old LBBB that is unchanged from prior, no complaints of chest pain, continue op meds -echo shows left and right atrium dilations, LVOT obstruction secondary to ABIGAIL- likely caused by hypertension, will add diltiazem and have cards see # afib: s/p PPM # hx of UGIB #Pedal Edema #ESPITIA/Migraine -no complaints #HTN -high during most of her stay -diltiazem added Plan: she is currently homeless; CM looking at placement, will start Valtrex, appreciate cardiology seeing Sandra Subjective: Sandra is feeling poorly today Objective: Vital Signs Temp Pulse Resp BP Pulse Ox 37.0 C 77 25 H 176/99 H 93 03/30/18 07:18 03/30/18 09:54 03/30/18 09:54 03/30/18 07:18 03/30/18 09:54 Laboratory Results 03/27/18 03:48 03/27/18 03:48 03/29/18 03/30/18 03/31/18 05:59 05:59 05:59 Intake Total 1030 800 Output Total 1 Balance 1030 799 - Physical Exam Constitutional: chronically ill appearing, uncomfortable, unkempt Eyes: PERRL Ears, Nose, Mouth, Throat: hearing normal Cardiovascular: regular rate and rhythym Respiratory: no respiratory distress, reduced air movement Skin: warm, other (lesions, pustules, reddened low back area, bilaterally) Musculoskeletal: other (able to extend and bend her right knee area, tenderness over the knee, no swelling or redness) Neurologic: AAOx3 Psychiatric: interacting appropriately ICD10 Worksheet Patient Problems: Problems Problem Status Onset Dyspnea Acute Lethargy Acute Right upper lobe pneumonia Acute Abdominal pain Acute Chest pain Acute GI bleed Acute Pneumonia Acute
--- NOTE | 2018-03-30 13:54 | ASMTCMCOM ---
CM Note CM Note Notes: Ramy spoke to Sugey from [facility] in [place]. She will come evaluate pt this afternoon. RAMY spoke to Huy from [facility]. Huy reports that he will come by this afternoon to evaluate her. Huy reports that there might be a possibly to accommodate her dog Nani. RAMY called [facility] and they do not have any medicaid availabilities at this time. RAMY spoke to Felicitas pearce/ [facility] (P# [phone]). She is in the process of evaluating her for LTC. Felicitas reports that pts PASRR was already started from another recent hospitalization. Felicitas reports that she can send it to CM's fax. Felicitas had a feeling that her PASRR will trigger and notified Harlan Dodd about it. CM to follow. Plan: TBD Date Signed: 03/30/2018 01:53 PM Electronically Signed By:CARLOS Levy
--- NOTE | 2018-03-30 14:36 | ASMTCMCOM ---
CM Note CM Note Notes: Huy from [facility] stopped by and met w/ pt. Huy reports that clinically pt has been accepted. [facility] just needs to clear her financially. [facility] be bringing pt in under her Medicaid. Huy would need the completed ultc-100. Huy reports that pt would be able to have her dog Nani there. RAMY spoke to Golden at [facility] (P#: [phone]). Golden will need to be notified once a facility has been identified. Date Signed: 03/30/2018 02:35 PM Electronically Signed By:CARLOS Levy
--- NOTE | 2018-03-30 14:41 | PDCARCONS ---
Cardiology Consult Reason for Consult: Outflow tract gradient Chief Complaint: Not feeling well Requesting Physician: Sylvia History of Present Illness: 68-year-old female history of a permanent pacemaker admitted with recurrent hepatic encephalopathy associated with altered mental status. I am asked to comment on outflow tract gradient seen by echocardiography. Patient has longstanding cardiac history. I have not seen her in many many years. Review of our outpatient and inpatient records show our last evaluation was in 2003. At that time she got a permanent pacemaker. She had a coronary angiogram. She reports that she has had 4 heart attacks. Her permanent pacemaker has been changed once. Pacemaker was placed initially for sick sinus syndrome associated with atrial fibrillation. She is on diltiazem for rate control. She has chronic cardiac symptoms including recurrent angina. She reports chronic shortness of breath. She has frequent episodes of dizziness and poor mentation. She denies true syncope. She has no exertional angina. She currently denies PND orthopnea. On my arrival she is resting comfortably in bed with no specific complaints. I reviewed her echocardiogram. It shows left ventricular hypertrophy with overall preserved LV systolic function. I cannot see systolic motion of her anterior mitral valve leaflet. Doppler does show a mild outflow tract gradient. Overall LV function is preserved with dyskinesis consistent with permanent pacing. She does have severe tricuspid regurgitation with elevated pulmonary artery pressures. She denies peripheral edema. Her EKG shows a sensing V pacing. History Information - Allergies/Home Medication List Allergies/Adverse Reactions: codeine Allergy (Verified 03/25/18 17:40) meperidine HCl [From Demerol] Allergy (Verified 03/25/18 17:40) methadone [Methadone] Allergy (Verified 03/25/18 17:40) morphine Allergy (Verified 03/25/18 17:40) nalbuphine HCl [From Nubain] Allergy (Verified 03/25/18 17:40) Home Medications: Oxybutynin Chloride [OXYBUTYNIN CHLORIDE ER] 5 mg PO DAILY 09/29/17 [Last Taken 02/03/18] lamoTRIgine [LaMICtal] 50 mg PO BID 09/29/17 [Last Taken 02/02/18] Escitalopram Oxalate [Lexapro] 20 mg PO DAILY 02/03/18 [Last Taken 02/02/18] Omeprazole 40 mg PO DAILY 02/03/18 [Last Taken 02/02/18] Rifaximin [Xifaxan] 550 mg PO BID 02/03/18 [Last Taken 02/02/18] Rizatriptan Benzoate [Maxalt [employer]'] 10 mg PO DAILY PRN 02/03/18 [Last Taken Unknown] clonazePAM [Klonopin (*)] 0.5 mg PO HS PRN 03/25/18 [Last Taken Unknown] Rizatriptan Benzoate [Maxalt [employer]'] 10 mg PO ONCE PRN 03/28/18 [Last Taken Unknown ] I have personally reviewed and updated: family history, medical history, social history, surgical history Past Medical History: - Past Medical History hypertension - Surgical History Reports: pacemaker/AICD - Family History Additional family history: No family history of hypertrophic cardiomyopathy - Social History Smoking Status: Current every day smoker (may have recently quit) Alcohol Use: None Drug Use: None Physical Exam Physical Exam: Temp Pulse Resp BP Pulse Ox 37.0 C 77 25 H 176/99 H 93 03/30/18 07:18 03/30/18 09:54 03/30/18 09:54 03/30/18 07:18 03/30/18 09:54 O2 (L/minute) 3 Lab and Imaging 03/27/18 03:48 03/27/18 03:48 WBC 8.78 10^3/uL (3.80-9.50) 03/27/18 03:48 RBC 4.22 10^6/uL (4.18-5.33) 03/27/18 03:48 Hgb 10.7 g/dL (12.6-16.3) L 03/27/18 03:48 Hct 33.6 % (38.0-47.0) L 03/27/18 03:48 MCV 79.6 fL (81.5-99.8) L 03/27/18 03:48 MCH 25.4 pg (27.9-34.1) L 03/27/18 03:48 MCHC 31.8 g/dL (32.4-36.7) L 03/27/18 03:48 RDW 17.7 % (11.5-15.2) H 03/27/18 03:48 Plt Count 107 10^3/uL (150-400) L 03/27/18 03:48 MPV 10.4 fL (8.7-11.7) 03/26/18 03:41 Neut % (Auto) Not Reported 03/26/18 03:41 Lymph % (Auto) Not Reported 03/26/18 03:41 Woodson % (Auto) Not Reported 03/26/18 03:41 Eos % (Auto) Not Reported 03/26/18 03:41 Baso % (Auto) Not Reported 03/26/18 03:41 Nucleat RBC Rel Count Not Reported 03/26/18 03:41 Absolute Neuts (auto) Not Reported 03/26/18 03:41 Absolute Lymphs (auto) Not Reported 03/26/18 03:41 Absolute Monos (auto) Not Reported 03/26/18 03:41 Absolute Eos (auto) Not Reported 03/26/18 03:41 Absolute Basos (auto) Not Reported 03/26/18 03:41 Absolute Nucleated RBC Not Reported 03/26/18 03:41 Immature Gran % Not Reported 03/26/18 03:41 Seg Neutrophils % 77.0 % 03/26/18 03:41 Band Neutrophils % 3.0 % 03/26/18 03:41 Lymphocytes % 17.0 % 03/26/18 03:41 Monocytes % 3.0 % 03/26/18 03:41 Eosinophils % 0.0 % 03/25/18 17:35 Basophils % 0.0 % 03/25/18 17:35 Metamyelocytes % 0.0 % 03/25/18 17:35 Myelocytes % 0.0 % 03/25/18 17:35 Promyelocytes % 0.0 % 03/25/18 17:35 Blast Cells % 0.0 % 03/25/18 17:35 Immature Gran # Not Reported 03/26/18 03:41 Absolute Seg Neuts 3.46 10^3/uL (1.70-6.50) 03/26/18 03:41 Absolute Band Neuts 0.13 10^3/uL (0.00-0.70) 03/26/18 03:41 Absolute Lymphocytes 0.76 10^3/uL (1.00-3.00) L 03/26/18 03:41 Absolute Monocytes 0.13 10^3/uL (0.30-0.80) L 03/26/18 03:41 Absolute Eosinophils 0.00 10^3/uL (0.03-0.40) L 03/25/18 17:35 Absolute Basophils 0.00 10^3/uL (0.02-0.10) L 03/25/18 17:35 Absolute Metamyelocyte 0.00 10^3/mL (0.00-0.00) 03/25/18 17:35 Absolute Myelocytes 0.00 10^3/mL (0.00-0.00) 03/25/18 17:35 Absolute Promyelocytes 0.00 10^3/uL (0.00-0.00) 03/25/18 17:35 Absolute Plasma Cells 0.00 10^3/uL (0.00-0.00) 03/25/18 17:35 Nucleated RBCs 8.2 /100 WBC (0-0) H 03/25/18 17:35 Differential Comment 03/26/18 03:41 Atypical Lymphocytes 1+ H 03/25/18 17:35 Absolute Blast Cells 0.00 10^3/uL (0.00-0.00) 03/25/18 17:35 Plasma Cells % 0.0 % 03/25/18 17:35 Smudge Cells 1+ H 03/26/18 03:41 Toxic Granulation PRESENT H 03/26/18 03:41 Platelet Estimate DECREASED (ADEQ) L 03/26/18 03:41 Polychromasia 1+ H 03/26/18 03:41 Oval Macrocytes 1+ H 03/25/18 17:35 Smear Review By Jaycee TRAVIS MD 03/25/18 17:35 Puncture Site RIGHT RADIAL 03/25/18 18:00 Patient Temperature 37.1 DEGREES 03/25/18 18:00 pCO2 33 mmHg (34-38) L 03/25/18 18:00 pO2 65 mmHg (65-75) 03/25/18 18:00 Total CO2 24 mEq/L (23-27) 03/25/18 18:00 ABG pH 7.47 (7.35-7.45) H 03/25/18 18:00 ABG HCO3 23 mEq/L (22-26) 03/25/18 18:00 ABG O2 Saturation 91 % (92-95) L 03/25/18 18:00 ABG Base Excess 0.6 mEq/L (-2.5-2.5) 03/25/18 18:00 VBG Lactic Acid 2.0 mmol/L (0.7-2.1) 03/25/18 19:44 Total O2 Concentration 2.0 LITERS 03/25/18 18:00 Sodium 135 mEq/L (135-145) 03/27/18 03:48 Potassium 4.0 mEq/L (3.5-5.2) 03/27/18 03:48 Chloride 105 mEq/L (97-110) 03/27/18 03:48 Carbon Dioxide 27 mEq/l (22-31) 03/27/18 03:48 Anion Gap 3 mEq/L (6-14) L 03/27/18 03:48 BUN 13 mg/dL (7-23) 03/27/18 03:48 Creatinine 0.5 mg/dL (0.6-1.0) L 03/27/18 03:48 Estimated GFR > 60 03/27/18 03:48 Glucose 137 mg/dL (70-100) H 03/27/18 03:48 Calcium 9.0 mg/dL (8.5-10.4) 03/27/18 03:48 Total Bilirubin 0.9 mg/dL (0.1-1.4) 03/27/18 03:48 Conjugated Bilirubin 0.8 mg/dL (0.0-0.5) H 03/26/18 03:41 Unconjugated Bilirubin 0.5 mg/dL (0.0-1.1) 03/26/18 03:41 AST 45 IU/L (14-46) 03/27/18 03:48 ALT 48 IU/L (9-52) 03/27/18 03:48 Alkaline Phosphatase 199 IU/L (38-126) H 03/27/18 03:48 NT-Pro-B Natriuret Pep 2870 pg/mL (0-125) H 03/25/18 17:35 Total Protein 4.7 g/dL (6.3-8.2) L 03/27/18 03:48 Albumin 2.4 g/dL (3.5-5.0) L 03/27/18 03:48 Procalcitonin 0.26 ng/mL (0.02-0.10) H 03/29/18 04:14 Nasal Influenza A PCR NEGATIVE FOR FLU A (NEGATIVE) 03/25/18 18:10 Nasal Influenza B PCR NEGATIVE FOR FLU B (NEGATIVE) 03/25/18 18:10 RSV (PCR) RSV DETECTED (NEGATIVE) H 03/25/18 18:10 EKG additional interpertation: A sense V pacing Echocardiogram: Reviewed primarily. No pericardial effusion. Concentric left ventricular hypertrophy with septal dyskinesis and normal ejection fraction. Normal mitral valve. Mild mitral regurgitation. Severe tricuspid regurgitation with a pacing wire. Elevated pulmonary artery pressure A/P Assessment: 68-year-old female with severe hepatic failure associated with pulmonary hypertension. History of atrial fibrillation/sick sinus syndrome with permanent pacemaker. Echocardiogram shows overall preserved LV function with expected regional wall motion abnormalities due to pacing. She does have severe tricuspid regurgitation with right ventricular systolic pressures that are mildly elevated. She does have a mild outflow tract gradient by Doppler without structural abnormalities. Her symptoms are out of proportion to degree of outflow tract gradient. At this point she does not require a surgical evaluation. Will obtain her old records from the clinic to see if this is a new finding. Her device appears to be working appropriately. Will continue to follow along with you. At this point no recommendations for change in therapy or further diagnostic procedures are necessary. Continue diltiazem for rate control and blood pressure control. Review of Systems Review of Systems: - Review of Systems Constitutional: chills, fever EENTM: no symptoms reported Respiratory: cough, shortness of breath Cardiac: chest pain, lightheadedness. denies: irregular heart rate, palpitations, syncope Gastrointestinal/Abdominal: abdominal pain, abdominal distention Genitourinary: no symptoms Musculoskelatal: no symptoms Skin: no symptoms Neurological: no symptoms Hematologic/Lymphatic: no symptoms reported Immunologic/allergic: no symptoms reported Past Medical History PMH: - Personal History Current Tetanus Diphtheria and Acellular Pertussis (TDAP): Yes - Medical/Surgical History Hx Asthma: Yes Hx Chronic Respiratory Disease: No Hx Cardiac Disease: Yes Hx Diabetes: Yes Hx Renal Disease: No Hx Alcoholism: Yes Hx Cirrhosis: Yes Hx HIV/AIDS: No Hx Splenectomy or Spleen Trauma: No Other PMH: Bipolar, pacemaker, afib, liver disease not related to alcohol. dementia, [place], ulcers, hysterectomy, asthma, manic depression, chronic hepatic encephalopathy - Social History Smoking Status: Current every day smoker (may have recently quit) Additional Social History:
[2018-03-30] MEDS: valACYclovir 500 MG TAB PO SCH ×2 (15:43→21:19)
[2018-03-30] MEDS: Rizatriptan Benzoate [Maxalt Mlt] 10 MG PO PRN (15:54)
[2018-03-30] MEDS: DILTIAZEM 30 MG TAB PO SCH ×2 (17:13→23:08)
[2018-03-30] MEDS: clonazePAM 0.5 MG TAB PO PRN (21:18)
[2018-03-30] MEDS: AZITHROMYCIN IV 500 MG in NS 250 ML IV SCH (21:18)
[2018-03-31] MEDS: DILTIAZEM 30 MG TAB PO SCH ×4 (05:17→23:07)
[2018-03-31] MEDS: Rizatriptan Benzoate [Maxalt Mlt] 10 MG PO PRN (05:25)
[2018-03-31] MEDS: predniSONE 20 MG TAB PO SCH (09:20)
[2018-03-31] MEDS: lamoTRIgine 100 MG TAB PO SCH ×2 (09:21→20:30)
[2018-03-31] MEDS: NICOTINE 14 MG/24 HR PATCH TD SCH (09:21)
[2018-03-31] MEDS: ESCITALOPRAM OXALATE 10 MG TAB PO SCH (09:21)
[2018-03-31] MEDS: PANTOPRAZOLE SODIUM 40 MG TAB PO SCH (09:21)
[2018-03-31] MEDS: OXYBUTYNIN 5 MG EXT REL TAB PO SCH (09:21)
[2018-03-31] MEDS: RIFAXIMIN 550 MG TAB PO SCH ×2 (09:21→20:30)
[2018-03-31] MEDS: valACYclovir 500 MG TAB PO SCH ×3 (09:21→22:00)
[2018-03-31] MEDS: LACTULOSE 20 GM/30 ML UDCUP PO SCH ×3 (09:22→22:00)
--- NOTE | 2018-03-31 11:42 | ASMTCMCOM ---
CM Note CM Note Notes: Pts case discussed w/ Scarlet Hutson NP. Pt is positive for airborne shingles. CM notified Huy of this. Huy reports that [facility] has given financial approval but now waiting for district approval. CM to follow. Plan: TBD Date Signed: 03/31/2018 11:41 AM Electronically Signed By:CARLOS Levy
--- NOTE | 2018-03-31 14:09 | HOSPPROG ---
Hospitalist Progress Note Assessment/Plan: 68 yo F with MMI including 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 with chronic hepatic encephalopathy and poor medical compliance brought in respiratory distress from homeless intermediate with e/o pna on imaging. First encounter, chart reviewed. # pna -Ceftriaxone and azithro (mar 26) -+RSV complicating the above -procalcitonin 0.26 so likely bacterial -she also has underlying COPD #RSV -supportive care # copd with acute exacerbation -will continue scheduled duonebs, continue prn albuterol, prednisone 40 mg daily # hepatic encephalopathy - chronic issue for patient with underlying cirrhosis and med non compliance - lactulose/rifaximin # cirrhosis -well compensated -LFT's improved #r knee pain -says she fell recently -no swelling, but pain w flexion -get x rays #rash/looks like Shingles (VZV) even though on 2 dermatomes -Valtrex tid x 7 days -contact precautions only # CAD -with old LBBB that is unchanged from prior, no complaints of chest pain, continue op meds -echo shows left and right atrium dilations, LVOT obstruction secondary to ABIGAIL- likely caused by hypertension, diltiazem -appreciate cards # afib: s/p PPM # hx of UGIB #Pedal Edema #ESPITIA/Migraine -no complaints #HTN -high during most of her stay -diltiazem added Plan: she is currently homeless; CM looking at placement, will start Valtrex, appreciate cardiology seeing Sandra Madden CM Subjective: Up in room. Feeling ok. No specific issues. Objective: Vital Signs Temp Pulse Resp BP Pulse Ox 37.1 C 71 16 135/71 H 91 L 03/31/18 08:00 03/31/18 12:24 03/31/18 08:00 03/31/18 12:24 03/31/18 08:00 Laboratory Results 03/27/18 03:48 03/27/18 03:48 03/30/18 03/31/18 04/01/18 05:59 05:59 05:59 Intake Total 800 400 Output Total 1 Balance 799 400 - Physical Exam Constitutional: appears nourished, not in pain, chronically ill appearing Eyes: PERRL, anicteric sclera, EOMI Ears, Nose, Mouth, Throat: moist mucous membranes, hearing normal, ears appear normal Cardiovascular: regular rate and rhythym, No JVD, No edema Respiratory: no respiratory distress, no rales or rhonchi, reduced air movement Gastrointestinal: normoactive bowel sounds, No tenderness, No ascites Skin: warm, normal color, rash Musculoskeletal: normal joint ROM, no joint effusions, generalized weakness Neurologic: AAOx3 Psychiatric: not anxious, not encephalopathic, poor insight, poor judgement ICD10 Worksheet Patient Problems: Problems Problem Status Onset GI bleed Acute Chest pain Acute Pneumonia Acute Abdominal pain Acute Dyspnea Acute Lethargy Acute Right upper lobe pneumonia Acute
[2018-03-31] MEDS: AZITHROMYCIN IV 500 MG in NS 250 ML IV SCH (20:31)
[2018-04-01] MEDS: Rizatriptan Benzoate [Maxalt Mlt] 10 MG PO PRN (04:39)
[2018-04-01] MEDS: ACETAMINOPHEN 325 MG TAB PO PRN (04:40)
[2018-04-01] MEDS: DILTIAZEM 30 MG TAB PO SCH ×4 (05:17→23:12)
[2018-04-01] MEDS: LACTULOSE 20 GM/30 ML UDCUP PO SCH ×3 (08:47→21:13)
[2018-04-01] MEDS: NICOTINE 14 MG/24 HR PATCH TD SCH (08:47)
[2018-04-01] MEDS: predniSONE 20 MG TAB PO SCH (08:48)
[2018-04-01] MEDS: lamoTRIgine 100 MG TAB PO SCH ×2 (08:48→21:13)
[2018-04-01] MEDS: PANTOPRAZOLE SODIUM 40 MG TAB PO SCH (08:48)
[2018-04-01] MEDS: RIFAXIMIN 550 MG TAB PO SCH ×2 (08:48→21:13)
[2018-04-01] MEDS: OXYBUTYNIN 5 MG EXT REL TAB PO SCH (08:49)
[2018-04-01] MEDS: ESCITALOPRAM OXALATE 10 MG TAB PO SCH (08:58)
[2018-04-01] MEDS: valACYclovir 500 MG TAB PO SCH ×3 (10:35→21:14)
--- NOTE | 2018-04-01 14:07 | HOSPPROG ---
Hospitalist Progress Note Assessment/Plan: 68 yo F with MMI including 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 with chronic hepatic encephalopathy and poor medical compliance brought in respiratory distress from homeless assisted with e/o pna on imaging. # pna -Ceftriaxone and azithro (mar 26) treated -+RSV complicating the above -procalcitonin 0.26 so likely bacterial -she also has underlying COPD #RSV -supportive care # copd with acute exacerbation -will continue scheduled duonebs, continue prn albuterol, DC prednisone 40 mg daily # hepatic encephalopathy - chronic issue for patient with underlying cirrhosis and med non compliance - lactulose/rifaximin # cirrhosis -well compensated -LFT's improved #r knee pain -says she fell recently -no swelling, but pain w flexion -feels better #rash/looks like Shingles (VZV) even though on 2 dermatomes -Valtrex tid x 7 days -contact precautions only # CAD -with old LBBB that is unchanged from prior, no complaints of chest pain, continue op meds -echo shows left and right atrium dilations, LVOT obstruction secondary to ABIGAIL- likely caused by hypertension, diltiazem -appreciate cards # afib: s/p PPM # hx of UGIB #Pedal Edema #ESPITIA/Migraine -no complaints #HTN -high during most of her stay -diltiazem added Plan: she is currently homeless; CM looking at placement, Valtrex, appreciate cardiology seeing Sandra Madden CM Subjective: Feeling better. Breathing better. No pain. Objective: Vital Signs Temp Pulse Resp BP Pulse Ox 36.5 C 76 16 134/71 H 92 04/01/18 07:32 04/01/18 12:18 04/01/18 07:32 04/01/18 12:18 04/01/18 07:32 Laboratory Results 03/27/18 03:48 03/27/18 03:48 03/31/18 04/01/18 04/02/18 05:59 05:59 05:59 Intake Total 400 1300 Output Total 200 Balance 400 1300 -200 - Physical Exam Constitutional: appears nourished, chronically ill appearing Eyes: PERRL, anicteric sclera Ears, Nose, Mouth, Throat: moist mucous membranes, hearing normal Cardiovascular: No JVD, No edema Respiratory: no respiratory distress, reduced air movement Gastrointestinal: No tenderness, No ascites Skin: warm, normal color, No mottled Musculoskeletal: no joint effusions, generalized weakness Neurologic: AAOx3 Psychiatric: not anxious, not encephalopathic, thought process linear ICD10 Worksheet Patient Problems: Problems Problem Status Onset GI bleed Acute Chest pain Acute Pneumonia Acute Abdominal pain Acute Dyspnea Acute Lethargy Acute Right upper lobe pneumonia Acute
--- NOTE | 2018-04-01 16:25 | ASMTCMCOM ---
CM Note CM Note Notes: CM spoke to Huy at [facility]. Pt has been approved and can go once pts shingles have scabbed over. Pt is out of airborne precautions. CM to follow. Plan: [facility] Date Signed: 04/01/2018 04:18 PM Electronically Signed By:CARLOS Levy
[2018-04-01] MEDS: clonazePAM 0.5 MG TAB PO PRN (23:12)
[2018-04-02] MEDS: DILTIAZEM 30 MG TAB PO SCH ×3 (05:38→16:58)
[2018-04-02] MEDS: NICOTINE 14 MG/24 HR PATCH TD SCH (08:17)
[2018-04-02] MEDS: LACTULOSE 20 GM/30 ML UDCUP PO SCH ×3 (08:17→21:41)
[2018-04-02] MEDS: RIFAXIMIN 550 MG TAB PO SCH ×2 (08:17→21:41)
[2018-04-02] MEDS: ESCITALOPRAM OXALATE 10 MG TAB PO SCH (08:18)
[2018-04-02] MEDS: valACYclovir 500 MG TAB PO SCH ×3 (08:18→21:41)
[2018-04-02] MEDS: PANTOPRAZOLE SODIUM 40 MG TAB PO SCH (08:18)
[2018-04-02] MEDS: OXYBUTYNIN 5 MG EXT REL TAB PO SCH (08:18)
[2018-04-02] MEDS: lamoTRIgine 100 MG TAB PO SCH ×2 (08:18→21:40)
[2018-04-02] MEDS: Rizatriptan Benzoate [Maxalt Mlt] 10 MG PO PRN (08:22)
--- NOTE | 2018-04-02 13:58 | HOSPPROG ---
Hospitalist Progress Note Assessment/Plan: 68 yo F with MMI including 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 with chronic hepatic encephalopathy and poor medical compliance brought in respiratory distress from homeless [facility] with e/o pna on imaging. # pna -Ceftriaxone and azithro (mar 26) treated -+RSV complicating the above -procalcitonin 0.26 so likely bacterial -she also has underlying COPD #RSV -supportive care # copd with acute exacerbation -will continue scheduled duonebs, continue prn albuterol, DC prednisone 40 mg daily # hepatic encephalopathy - chronic issue for patient with underlying cirrhosis and med non compliance - lactulose/rifaximin # cirrhosis -well compensated -LFT's improved #r knee pain -says she fell recently -no swelling, but pain w flexion -feels better #rash/looks like Shingles (VZV) even though on 2 dermatomes -Valtrex tid x 7 days -contact precautions only # CAD -with old LBBB that is unchanged from prior, no complaints of chest pain, continue op meds -echo shows left and right atrium dilations, LVOT obstruction secondary to ABIGAIL- likely caused by hypertension, diltiazem -appreciate cards # afib: s/p PPM # hx of UGIB #Pedal Edema #ESPITIA/Migraine -no complaints #HTN -high during most of her stay -diltiazem added Plan: she is currently homeless; CM looking at placement, Valtrex, appreciate cardiology seeing Sandra Madden CM Subjective: Feeling much better. No issues with breathing. Strength better. Objective: Vital Signs Temp Pulse Resp BP Pulse Ox 36.3 C 90 16 133/54 H 91 L 04/02/18 07:21 04/02/18 12:02 04/02/18 07:21 04/02/18 12:02 04/02/18 07:21 Laboratory Results 03/27/18 03:48 03/27/18 03:48 04/01/18 04/02/18 04/03/18 05:59 05:59 05:59 Intake Total 1300 Output Total 300 400 Balance 1300 -300 -400 - Physical Exam Constitutional: appears nourished, chronically ill appearing Eyes: PERRL, anicteric sclera Ears, Nose, Mouth, Throat: moist mucous membranes, hearing normal Cardiovascular: No JVD, No edema Respiratory: no respiratory distress, reduced air movement Gastrointestinal: No tenderness, No ascites Skin: warm, rash Musculoskeletal: no joint effusions, generalized weakness Neurologic: AAOx3 Psychiatric: not anxious, not encephalopathic ICD10 Worksheet Patient Problems: Problems Problem Status Onset GI bleed Acute Chest pain Acute Pneumonia Acute Abdominal pain Acute Dyspnea Acute Lethargy Acute Right upper lobe pneumonia Acute
[2018-04-02] MEDS: GUAIFENESIN/DM 10 ML UDCUP PO PRN (21:42)
[2018-04-03] MEDS: DILTIAZEM 30 MG TAB PO SCH ×5 (00:04→23:20)
[2018-04-03] MEDS: clonazePAM 0.5 MG TAB PO PRN ×2 (00:13→23:20)
[2018-04-03] MEDS: Rizatriptan Benzoate [Maxalt Mlt] 10 MG PO PRN (02:19)
[2018-04-03] MEDS: ESCITALOPRAM OXALATE 10 MG TAB PO SCH (07:50)
[2018-04-03] MEDS: NICOTINE 14 MG/24 HR PATCH TD SCH (07:50)
[2018-04-03] MEDS: LACTULOSE 20 GM/30 ML UDCUP PO SCH ×3 (07:50→21:55)
[2018-04-03] MEDS: valACYclovir 500 MG TAB PO SCH ×3 (07:51→21:55)
[2018-04-03] MEDS: PANTOPRAZOLE SODIUM 40 MG TAB PO SCH (07:51)
[2018-04-03] MEDS: lamoTRIgine 100 MG TAB PO SCH ×2 (07:52→21:55)
[2018-04-03] MEDS: OXYBUTYNIN 5 MG EXT REL TAB PO SCH (07:52)
[2018-04-03] MEDS: RIFAXIMIN 550 MG TAB PO SCH ×2 (07:52→21:55)
--- NOTE | 2018-04-03 08:31 | HOSPPROG ---
Hospitalist Progress Note Assessment/Plan: 68 yo F with MMI including 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 with chronic hepatic encephalopathy and poor medical compliance brought in respiratory distress from homeless half-way with e/o pna on imaging # pna (finished treatment) -Ceftriaxone and azithro (mar 26) -+RSV complicating the above -procalcitonin 0.26 so likely bacterial -she also has underlying COPD #RSV -supportive care # copd with acute exacerbation -will continue scheduled duonebs, continue prn albuterol, finished treatment w prednisone -on room air # hepatic encephalopathy - chronic issue for patient with underlying cirrhosis and med non compliance - lactulose/rifaximin # cirrhosis -well compensated -LFT's improved #r knee pain -says she fell recently -no swelling, but pain w flexion -feels better #rash/looks like Shingles (VZV) even though on 2 dermatomes -Valtrex tid x 7 days -contact precautions only # CAD -with old LBBB that is unchanged from prior, no complaints of chest pain, continue op meds -echo shows left and right atrium dilations, LVOT obstruction secondary to ABIGAIL- likely caused by hypertension, diltiazem # afib: s/p PPM # hx of UGIB #Pedal Edema #ESPITIA/Migraine -no complaints #HTN -high during most of her stay -diltiazem added w improvement Plan:she will go to [facility] soon, shingles is improved. Subjective: Sandra is feeling overall fine. Objective: Vital Signs Temp Pulse Resp BP Pulse Ox 36.7 C 67 16 144/62 H 92 04/03/18 07:46 04/03/18 07:46 04/03/18 07:46 04/03/18 07:46 04/03/18 07:46 Laboratory Results 03/27/18 03:48 03/27/18 03:48 04/02/18 04/03/18 04/04/18 05:59 05:59 05:59 Intake Total 1100 Output Total 300 400 Balance -300 700 - Physical Exam Constitutional: no apparent distress, appears nourished, not in pain, chronically ill appearing Eyes: PERRL Ears, Nose, Mouth, Throat: hearing normal Cardiovascular: regular rate and rhythym Respiratory: no respiratory distress, expiratory wheeze (few scattered), bronchial breath sounds Gastrointestinal: normoactive bowel sounds Skin: warm, rash (bilateral in low back area w scabbing) Musculoskeletal: generalized weakness Neurologic: AAOx3 Psychiatric: flat affect ICD10 Worksheet Patient Problems: Problems Problem Status Onset Dyspnea Acute Lethargy Acute Right upper lobe pneumonia Acute Abdominal pain Acute Chest pain Acute GI bleed Acute Pneumonia Acute
[2018-04-03] MEDS: HYDROCODONE/APAP 5/325 TAB PO PRN (13:46)
[2018-04-03] MEDS: IPRATROPIUM/ALBUTEROL 3 ML DEYVIAL IH PRN (15:35)
--- NOTE | 2018-04-03 17:09 | ASMTCMCOM ---
CM Note CM Note Notes: Spoke w/ARCHERY INSTRUCTOR, pt will dc to [facility]. She can dc per ARCHERY INSTRUCTOR and ID but per Huy, BM can't take her until shingles completely scab over b/c she will have a roomate. DC Plan: [facility] Date Signed: 04/03/2018 05:09 PM Electronically Signed By:Yohana Tilley RN
[2018-04-04] MEDS: DILTIAZEM 30 MG TAB PO SCH ×4 (05:12→23:28)
[2018-04-04] MEDS: NICOTINE 14 MG/24 HR PATCH TD SCH (08:29)
[2018-04-04] MEDS: lamoTRIgine 100 MG TAB PO SCH ×2 (08:30→20:49)
[2018-04-04] MEDS: PANTOPRAZOLE SODIUM 40 MG TAB PO SCH (08:30)
[2018-04-04] MEDS: ESCITALOPRAM OXALATE 10 MG TAB PO SCH (08:31)
[2018-04-04] MEDS: RIFAXIMIN 550 MG TAB PO SCH ×2 (08:31→20:49)
[2018-04-04] MEDS: OXYBUTYNIN 5 MG EXT REL TAB PO SCH (08:31)
[2018-04-04] MEDS: valACYclovir 500 MG TAB PO SCH ×3 (08:31→20:49)
[2018-04-04] MEDS: LACTULOSE 20 GM/30 ML UDCUP PO SCH ×3 (08:33→21:51)
--- NOTE | 2018-04-04 08:45 | HOSPPROG ---
Hospitalist Progress Note Assessment/Plan: 68 yo F with MMI including 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 with chronic hepatic encephalopathy and poor medical compliance brought in respiratory distress from homeless senior living with e/o pna on imaging # pna (finished treatment) -Ceftriaxone and azithro (mar 26) -+RSV complicating the above -procalcitonin 0.26 so likely bacterial -she also has underlying COPD #RSV -supportive care # copd with acute exacerbation -will continue scheduled duonebs, continue prn albuterol, finished treatment w prednisone -on room air -added Mucinex # hepatic encephalopathy - chronic issue for patient with underlying cirrhosis and med non compliance - lactulose/rifaximin # cirrhosis -well compensated -LFT's improved #r knee pain -says she fell recently -no swelling, but pain w flexion -feels better #rash/looks like Shingles (VZV) even though on 2 dermatomes -Valtrex tid x 7 days (will be finished on 04/06) -contact precautions only # CAD -with old LBBB that is unchanged from prior, no complaints of chest pain, continue op meds -echo shows left and right atrium dilations, LVOT obstruction secondary to ABIGAIL- likely caused by hypertension, diltiazem # afib: s/p PPM # hx of UGIB #Pedal Edema #ESPITIA/Migraine -no complaints #HTN -high during most of her stay -diltiazem added w improvement Plan:she will go to [facility] soon Subjective: Sandra has no complaints, had some bleeding from her rash last night. Objective: Vital Signs Temp Pulse Resp BP Pulse Ox 36.7 C 79 16 152/74 H 90 L 04/04/18 07:14 04/04/18 07:14 04/04/18 07:14 04/04/18 07:14 04/04/18 07:14 Laboratory Results 03/27/18 03:48 03/27/18 03:48 04/03/18 04/04/18 04/05/18 05:59 05:59 05:59 Intake Total 1100 750 Output Total 400 800 Balance 700 -50 - Physical Exam Constitutional: no apparent distress, appears nourished, chronically ill appearing Eyes: PERRL Ears, Nose, Mouth, Throat: hearing normal Cardiovascular: regular rate and rhythym Respiratory: no respiratory distress, expiratory wheeze, rhonchi (few scattered rhonchi) Gastrointestinal: normoactive bowel sounds Skin: warm Musculoskeletal: generalized weakness Neurologic: AAOx3 Psychiatric: flat affect ICD10 Worksheet Patient Problems: Problems Problem Status Onset Dyspnea Acute Lethargy Acute Right upper lobe pneumonia Acute Abdominal pain Acute Chest pain Acute GI bleed Acute Pneumonia Acute
[2018-04-04] MEDS: guaiFENesin 600 MG TAB.ER PO SCH (20:49)
[2018-04-04] MEDS: Rizatriptan Benzoate [Maxalt Mlt] 10 MG PO PRN (20:50)
[2018-04-04] MEDS: clonazePAM 0.5 MG TAB PO PRN (23:28)
[2018-04-05] MEDS: DILTIAZEM 30 MG TAB PO SCH ×4 (05:13→23:26)
[2018-04-05] MEDS: lamoTRIgine 100 MG TAB PO SCH ×2 (08:17→21:19)
[2018-04-05] MEDS: valACYclovir 500 MG TAB PO SCH ×3 (08:17→21:20)
[2018-04-05] MEDS: PANTOPRAZOLE SODIUM 40 MG TAB PO SCH (08:18)
[2018-04-05] MEDS: OXYBUTYNIN 5 MG EXT REL TAB PO SCH (08:18)
[2018-04-05] MEDS: guaiFENesin 600 MG TAB.ER PO SCH ×2 (08:18→21:20)
[2018-04-05] MEDS: RIFAXIMIN 550 MG TAB PO SCH ×2 (08:19→21:20)
[2018-04-05] MEDS: ESCITALOPRAM OXALATE 10 MG TAB PO SCH (08:19)
--- NOTE | 2018-04-05 08:20 | HOSPPROG ---
Hospitalist Progress Note Assessment/Plan: 68 yo F with MMI including 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 with chronic hepatic encephalopathy and poor medical compliance brought in respiratory distress from homeless group home with e/o pna on imaging # pna (finished treatment) -Ceftriaxone and azithro (mar 26) -+RSV complicating the above -procalcitonin 0.26 so likely bacterial -she also has underlying COPD #RSV -supportive care # copd with acute exacerbation -will continue scheduled duonebs, continue prn albuterol, finished treatment w prednisone -on room air -added Mucinex # hepatic encephalopathy - chronic issue for patient with underlying cirrhosis and med non compliance - lactulose/rifaximin # cirrhosis -well compensated -LFT's improved #r knee pain -says she fell recently -no swelling, but pain w flexion -feels better #rash/looks like Shingles (VZV) even though on 2 dermatomes -Valtrex tid x 7 days (will be finished on 04/06) -contact precautions only/looks much improved # CAD -with old LBBB that is unchanged from prior, no complaints of chest pain, continue op meds -echo shows left and right atrium dilations, LVOT obstruction secondary to ABIGAIL- likely caused by hypertension, diltiazem # afib: s/p PPM # hx of UGIB #Pedal Edema #ESPITIA/Migraine -no complaints #HTN -high during most of her stay -diltiazem added w improvement Plan:she will go to [facility] soon Subjective: Sandra feels fine, wants to sleep. Objective: Vital Signs Temp Pulse Resp BP Pulse Ox 36.8 C 84 24 H 148/67 H 90 L 04/05/18 08:00 04/05/18 08:00 04/05/18 08:00 04/05/18 08:00 04/05/18 08:00 Laboratory Results 03/27/18 03:48 03/27/18 03:48 04/04/18 04/05/18 04/06/18 05:59 05:59 05:59 Intake Total 750 1500 Output Total 800 Balance -50 1500 - Physical Exam Constitutional: no apparent distress, appears nourished, not in pain Eyes: PERRL Ears, Nose, Mouth, Throat: hearing normal Cardiovascular: regular rate and rhythym Respiratory: no respiratory distress, bronchial breath sounds Gastrointestinal: normoactive bowel sounds Skin: warm, other (rash getting smaller in size and overall improving, small scabs) Musculoskeletal: generalized weakness Neurologic: AAOx3 Psychiatric: flat affect ICD10 Worksheet Patient Problems: Problems Problem Status Onset Dyspnea Acute Lethargy Acute Right upper lobe pneumonia Acute Abdominal pain Acute Chest pain Acute GI bleed Acute Pneumonia Acute
[2018-04-05] MEDS: LACTULOSE 20 GM/30 ML UDCUP PO SCH ×3 (08:27→21:27)
--- NOTE | 2018-04-05 12:18 | ASMTCMCOM ---
CM Note CM Note Notes: CM discussed with Carolyn Diaz NP, patient will be done with Valtrex on 04/06/18 and team will continue to monitor for progression/scabbing over of shingles. CM to follow. D/C Plan: [facility]. Date Signed: 04/05/2018 12:17 PM Electronically Signed By:Cara Joseph
[2018-04-05] MEDS: NICOTINE 14 MG/24 HR PATCH TD SCH (13:28)
[2018-04-05] MEDS: Rizatriptan Benzoate [Maxalt Mlt] 10 MG PO PRN (23:26)
[2018-04-05] MEDS: clonazePAM 0.5 MG TAB PO PRN (23:39)
[2018-04-06] MEDS: DILTIAZEM 30 MG TAB PO SCH ×5 (06:05→23:10)
--- NOTE | 2018-04-06 08:57 | HOSPPROG ---
Hospitalist Progress Note Assessment/Plan: 68 yo F with MMI including 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 with chronic hepatic encephalopathy and poor medical compliance brought in respiratory distress from homeless residential with e/o pna on imaging # pna (finished treatment) -Ceftriaxone and azithro (mar 26) -+RSV complicating the above -procalcitonin 0.26 so likely bacterial -she also has underlying COPD #RSV -supportive care # copd with acute exacerbation -will continue scheduled duonebs, continue prn albuterol, finished treatment w prednisone -on room air -added Mucinex # hepatic encephalopathy - chronic issue for patient with underlying cirrhosis and med non compliance - lactulose/rifaximin # cirrhosis -well compensated -LFT's improved #r knee pain -says she fell recently -no swelling, but pain w flexion -feels better #rash/looks like Shingles (VZV) even though on 2 dermatomes -Valtrex tid x 7 days (will be finished on 04/06) -contact precautions only/looks much improved # CAD -with old LBBB that is unchanged from prior, no complaints of chest pain, continue op meds -echo shows left and right atrium dilations, LVOT obstruction secondary to ABIGAIL- likely caused by hypertension, diltiazem # afib: s/p PPM # hx of UGIB #Pedal Edema #ESPITIA/Migraine -no complaints #HTN -high during most of her stay -diltiazem added w improvement Plan:she will go to [facility] hopefully today, on her last dose of Valtrex Subjective: Sandra is feeling well, appetite is good. Objective: Vital Signs Temp Pulse Resp BP Pulse Ox 36.6 C 82 16 154/69 H 92 04/05/18 23:10 04/06/18 06:05 04/05/18 23:10 04/06/18 06:05 04/05/18 23:10 Laboratory Results 03/27/18 03:48 03/27/18 03:48 04/05/18 04/06/18 04/07/18 05:59 05:59 05:59 Intake Total 1500 Balance 1500 - Physical Exam Constitutional: no apparent distress, appears nourished, not in pain Eyes: PERRL Ears, Nose, Mouth, Throat: hearing normal Respiratory: no respiratory distress Skin: warm, other (back rash shrinking in size, no drainage, scabbing) Musculoskeletal: generalized weakness Neurologic: AAOx3 Psychiatric: interacting appropriately ICD10 Worksheet Patient Problems: Problems Problem Status Onset Dyspnea Acute Lethargy Acute Right upper lobe pneumonia Acute Abdominal pain Acute Chest pain Acute GI bleed Acute Pneumonia Acute
[2018-04-06] MEDS: OXYBUTYNIN 5 MG EXT REL TAB PO SCH (09:59)
[2018-04-06] MEDS: valACYclovir 500 MG TAB PO SCH (09:59)
[2018-04-06] MEDS: lamoTRIgine 100 MG TAB PO SCH ×2 (09:59→22:00)
[2018-04-06] MEDS: RIFAXIMIN 550 MG TAB PO SCH ×2 (09:59→22:02)
[2018-04-06] MEDS: guaiFENesin 600 MG TAB.ER PO SCH ×2 (10:00→22:02)
[2018-04-06] MEDS: NICOTINE 14 MG/24 HR PATCH TD SCH (10:00)
[2018-04-06] MEDS: BENZONATATE 100 MG CAP PO PRN (10:00)
[2018-04-06] MEDS: ESCITALOPRAM OXALATE 10 MG TAB PO SCH (10:00)
[2018-04-06] MEDS: PANTOPRAZOLE SODIUM 40 MG TAB PO SCH (10:00)
[2018-04-06] MEDS: LACTULOSE 20 GM/30 ML UDCUP PO SCH ×3 (10:04→22:02)
[2018-04-06] MEDS: IPRATROPIUM/ALBUTEROL 3 ML DEYVIAL IH PRN (10:06)
--- NOTE | 2018-04-06 10:34 | PDIAF ---
- Diagnosis Diagnosis: pna,rsv, rash, hypertension, copd Code Status: Full Code - Medication Management Discharge Medications: electronically signed and located in the Home Medication List. - Orders Diet Recommendation: no restrictions on diet Diet Texture: Regular Texture Diet Additional Instructions: diltiazem is a new medication for you, you have very high blood pressure and need to be on this f/u w your primary care provider - Follow Up Care Current Providers and Referrals: NONE *PRIMARY CARE P,. [Primary Care Provider] - As per Instructions
[2018-04-06] MEDS: Rizatriptan Benzoate [Maxalt Mlt] 10 MG PO PRN ×2 (16:34→23:58)
--- NOTE | 2018-04-06 16:44 | GDS ---
DISCHARGE DIAGNOSES: 1. Pneumonia. 2. Respiratory syncytial virus. 3. Chronic obstructive pulmonary disease with acute exacerbation. 4. Hepatic encephalopathy. 5. Cirrhosis. 6. Right knee pain. 7. Shingles, rash on low back area. 8. Coronary artery disease. 9. Atrial fibrillation. 10. History of upper gastrointestinal bleed. 11. Pedal edema. 12. Migraine headaches. 13. Hypertension. CONSULTATION: Dr. Rajiv Daniel. Briefly, this is a 68-year-old female with history of 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 as well as chronic hepatic encephalopathy. [facility] where she was noted to be in respiratory distress. On admission, she was somnolent. She was admitted and noted to have pneumonia. She had a chest x- ray that showed an infiltrate. She was treated with ceftriaxone and azithromycin. She improved throughout her stay. In addition, she had uncontrolled hypertension, seen and evaluated by Cardiology. Recommendation was to continue treatment as we have started. She is markedly improved on discharge. She will be discharged to [facility]. HOSPITAL COURSE: 1. Pneumonia, treated with ceftriaxone and azithromycin, markedly improved. 2. RSV. She is likely no longer contagious and much improved. 3. COPD. She is on scheduled DuoNeb and p.r.n. albuterol. She was also treated with prednisone and now will continue Mucinex, stable. 4. Hepatic encephalopathy. Continue lactulose and rifaximin. She is doing well with this. She is alert and oriented. 5. Cirrhosis, well compensated. 6. Right knee pain. None further. 7. Rash. It appears that this is VCV, shingles. She will finish her full treatment of Valtrex dosing. 8. Coronary artery disease. She has an old left bundle branch block that is unchanged from prior. She had an echo performed that showed left and right atrium dilatations as well as LVOT obstruction secondary to ABIGAIL likely causing her hypertension. She was started on diltiazem. 9. Atrial fibrillation. She is status post permanent pacemaker. 10. History of upper GI bleed, stable. 11. Headache, history of migraines. No complaints. 12. Hypertension, improved with diltiazem. DISCHARGE CONDITION: Stable. Blood pressure is 148/74, heart rate is 77, respiratory rate of 16, O2 sats on room air 93%, temperature 36.7 Celsius. MEDICATIONS AT DISCHARGE: Please see the EMR. DISCHARGE INSTRUCTIONS: 1. To continue diltiazem as written. 2. Follow up with her primary care provider. 3. To avoid smoking. 4. Continue treatment for her cirrhosis. Greater than 30 minutes discharging and coordinating the patient's care. /[id number]/MODL MTDD
[2018-04-06] MEDS: clonazePAM 0.5 MG TAB PO PRN (23:14)
[2018-04-07] MEDS: Rizatriptan Benzoate [Maxalt Mlt] 10 MG PO PRN ×2 (04:05→22:18)
[2018-04-07] MEDS: DILTIAZEM 30 MG TAB PO SCH ×4 (06:32→23:09)
[2018-04-07] MEDS: NICOTINE 14 MG/24 HR PATCH TD SCH (09:09)
[2018-04-07] MEDS: LACTULOSE 20 GM/30 ML UDCUP PO SCH ×3 (09:12→22:11)
[2018-04-07] MEDS: lamoTRIgine 100 MG TAB PO SCH ×2 (09:12→22:12)
[2018-04-07] MEDS: RIFAXIMIN 550 MG TAB PO SCH ×2 (09:12→22:12)
[2018-04-07] MEDS: ESCITALOPRAM OXALATE 10 MG TAB PO SCH (09:12)
[2018-04-07] MEDS: guaiFENesin 600 MG TAB.ER PO SCH ×2 (09:13→22:13)
[2018-04-07] MEDS: OXYBUTYNIN 5 MG EXT REL TAB PO SCH (09:13)
[2018-04-07] MEDS: PANTOPRAZOLE SODIUM 40 MG TAB PO SCH (09:13)
[2018-04-07] MEDS: IPRATROPIUM/ALBUTEROL 3 ML DEYVIAL IH PRN (10:26)
--- NOTE | 2018-04-07 15:19 | ASMTCMCOM ---
CM Note CM Note Notes: Pts case discussed w/ Carolyn Villatoro NP and MACI Cole. A Level 2 pasrr is required since pt has a dx of dementia. [facility] or an [facility] assisted living home director will need to come out. Huy from [facility] is aware of this. Date Signed: 04/07/2018 03:18 PM Electronically Signed By:CARLOS Levy
--- NOTE | 2018-04-07 17:02 | HOSPPROG ---
Hospitalist Progress Note Assessment/Plan: 68 yo F with MMI including 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 with chronic hepatic encephalopathy and poor medical compliance brought in respiratory distress from homeless senior living with e/o pna on imaging # pna (finished treatment) -Ceftriaxone and azithro (mar 26) -+RSV complicating the above -procalcitonin 0.26 so likely bacterial -she also has underlying COPD #RSV -supportive care # copd with acute exacerbation -will continue scheduled duonebs, continue prn albuterol, finished treatment w prednisone -on room air -added Mucinex # hepatic encephalopathy - chronic issue for patient with underlying cirrhosis and med non compliance - lactulose/rifaximin # cirrhosis -well compensated -LFT's improved #r knee pain -no further complaints #rash/looks like Shingles (VZV) even though on 2 dermatomes -Valtrex -finished treatment # CAD -with old LBBB that is unchanged from prior, no complaints of chest pain, continue op meds -echo shows left and right atrium dilations, LVOT obstruction secondary to ABIGAIL- likely caused by hypertension, diltiazem # afib: s/p PPM # hx of UGIB #Pedal Edema #ESPITIA/Migraine -no complaints #HTN -diltiazem added w improvement #hx of bipolar disorder -very well managed, has had no issues w this -she sees Dr Shane Barrios for this if there are any concerns or questions; his # is [phone] Plan: awaiting placement to [facility] Subjective: Sandra feels fine, anxious to be discharged. Objective: Vital Signs Temp Pulse Resp BP Pulse Ox 36.8 C 79 18 156/72 H 90 L 04/07/18 07:19 04/07/18 10:25 04/07/18 10:25 04/07/18 07:19 04/07/18 10:25 Laboratory Results 03/27/18 03:48 03/27/18 03:48 04/06/18 04/07/18 04/08/18 05:59 05:59 05:59 Intake Total 1760 Output Total 1400 Balance 360 - Physical Exam Constitutional: no apparent distress, appears nourished Eyes: PERRL Ears, Nose, Mouth, Throat: hearing normal Cardiovascular: regular rate and rhythym Respiratory: no respiratory distress, expiratory wheeze Gastrointestinal: normoactive bowel sounds Skin: warm Musculoskeletal: generalized weakness Neurologic: AAOx3 Psychiatric: interacting appropriately, not encephalopathic, thought process linear ICD10 Worksheet Patient Problems: Problems Problem Status Onset Dyspnea Acute Lethargy Acute Right upper lobe pneumonia Acute Abdominal pain Acute Chest pain Acute GI bleed Acute Pneumonia Acute
[2018-04-07] MEDS: ACETAMINOPHEN 325 MG TAB PO PRN (18:17)
[2018-04-07] MEDS: clonazePAM 0.5 MG TAB PO PRN (22:11)
[2018-04-08] MEDS: ACETAMINOPHEN 325 MG TAB PO PRN ×2 (01:18→05:15)
[2018-04-08] MEDS: DILTIAZEM 30 MG TAB PO SCH ×4 (05:14→23:54)
[2018-04-08] MEDS: LACTULOSE 20 GM/30 ML UDCUP PO SCH ×3 (08:56→21:25)
[2018-04-08] MEDS: NICOTINE 14 MG/24 HR PATCH TD SCH (08:58)
[2018-04-08] MEDS: lamoTRIgine 100 MG TAB PO SCH ×2 (09:00→21:25)
[2018-04-08] MEDS: guaiFENesin 600 MG TAB.ER PO SCH ×2 (09:00→21:25)
[2018-04-08] MEDS: ESCITALOPRAM OXALATE 10 MG TAB PO SCH (09:00)
[2018-04-08] MEDS: OXYBUTYNIN 5 MG EXT REL TAB PO SCH (09:00)
[2018-04-08] MEDS: RIFAXIMIN 550 MG TAB PO SCH ×2 (09:00→21:25)
[2018-04-08] MEDS: PANTOPRAZOLE SODIUM 40 MG TAB PO SCH (09:00)
--- NOTE | 2018-04-08 12:58 | HOSPPROG ---
Hospitalist Progress Note Assessment/Plan: 68 yo F with MMI including 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 with chronic hepatic encephalopathy and poor medical compliance brought in respiratory distress from homeless group home with e/o pna on imaging # pna (finished treatment) -Ceftriaxone and azithro (mar 26) -+RSV complicating the above -procalcitonin 0.26 so likely bacterial -she also has underlying COPD #RSV -resolved # copd with acute exacerbation -will continue scheduled duonebs, continue prn albuterol, finished treatment w prednisone -on room air # hepatic encephalopathy - chronic issue for patient with underlying cirrhosis and med non compliance - lactulose/rifaximin # cirrhosis -well compensated -LFT's improved #r knee pain -no further complaints #rash/looks like Shingles (VZV) even though on 2 dermatomes -Valtrex -finished treatment # CAD -with old LBBB that is unchanged from prior, no complaints of chest pain, continue op meds -echo shows left and right atrium dilations, LVOT obstruction secondary to ABIGAIL- likely caused by hypertension, diltiazem # afib: s/p PPM # hx of UGIB #Pedal Edema #ESPITIA/Migraine -no complaints #HTN -diltiazem added w improvement #hx of bipolar disorder -very well managed, has had no issues w this -she sees Dr Shane Barrios for this if there are any concerns or questions; his # is [phone] Plan: awaiting placement to [facility] Subjective: Feeling well. No specific issues. Objective: Vital Signs Temp Pulse Resp BP Pulse Ox 36.6 C 73 16 154/63 H 95 04/08/18 07:44 04/08/18 07:44 04/08/18 07:44 04/08/18 07:44 04/08/18 07:44 Laboratory Results 03/27/18 03:48 03/27/18 03:48 04/07/18 04/08/18 04/09/18 05:59 05:59 05:59 Intake Total 1760 750 Output Total 1400 Balance 360 750 - Physical Exam Constitutional: appears nourished, chronically ill appearing Eyes: PERRL, anicteric sclera Ears, Nose, Mouth, Throat: moist mucous membranes, hearing normal Cardiovascular: No JVD, No edema Respiratory: no respiratory distress, reduced air movement Gastrointestinal: No tenderness, No ascites Skin: warm, normal color Musculoskeletal: no joint effusions, generalized weakness Neurologic: AAOx3 Psychiatric: interacting appropriately, not anxious ICD10 Worksheet Patient Problems: Problems Problem Status Onset GI bleed Acute Chest pain Acute Pneumonia Acute Abdominal pain Acute Dyspnea Acute Lethargy Acute Right upper lobe pneumonia Acute
[2018-04-08] MEDS ORDERED: clonazePAM 0.5 MG TAB PO ONE (14:19)
[2018-04-08] MEDS: clonazePAM 0.5 MG TAB PO PRN ×2 (14:24→21:25)
--- NOTE | 2018-04-08 15:14 | ASMTCMCOM ---
CM Note CM Note Notes: Spoke w/Huy at [facility], pt is going to their facility under her Medicaid instead of Medicare. Ultc done and RAMY spoke to Golden at [facility], approval should come by the end of the day today. Hopefully dc to [facility] tomorrow. CM met with pt and explained delay, pt is very upset. She's afraid she will lose all her things in storage and the [employer] in [place] has her dog, who is supposed to go to with her. CM called [employer] and spoke w/RUPA. He states that pt owes $71 but she is not in danger of losing her belongings. I also spoke portia/Saqib at the [employer] they have pt's dog Nani and understand the delay. All information relayed to pt who is still frustrated but she willl stay. DC Plan: [facility] Date Signed: 04/08/2018 03:14 PM Electronically Signed By:Yohana Tilley RN
[2018-04-08] MEDS ORDERED: DICLOFENAC SODIUM 1% 100 GM GEL TP PRN (22:01)
[2018-04-08] MEDS ORDERED: SUMAtriptan 50 MG TAB PO PRN (22:01)
[2018-04-09] MEDS: DILTIAZEM 30 MG TAB PO SCH ×2 (05:59→11:59)
[2018-04-09] MEDS: ESCITALOPRAM OXALATE 10 MG TAB PO SCH (09:00)
[2018-04-09] MEDS: OXYBUTYNIN 5 MG EXT REL TAB PO SCH (09:00)
[2018-04-09] MEDS: PANTOPRAZOLE SODIUM 40 MG TAB PO SCH (09:00)
[2018-04-09] MEDS: guaiFENesin 600 MG TAB.ER PO SCH (09:00)
[2018-04-09] MEDS: RIFAXIMIN 550 MG TAB PO SCH (09:00)
[2018-04-09] MEDS: lamoTRIgine 100 MG TAB PO SCH (09:00)
[2018-04-09] MEDS: NICOTINE 14 MG/24 HR PATCH TD SCH (09:01)
[2018-04-09] MEDS: LACTULOSE 20 GM/30 ML UDCUP PO SCH (09:04)
--- NOTE | 2018-04-09 10:27 | PDIAF ---
- Diagnosis Diagnosis: pna,rsv, rash, hypertension, copd Code Status: Full Code - Medication Management Discharge Medications: electronically signed and located in the Home Medication List. - Orders Isolation Type: Contact Isolation, Droplet Isolation Diet Recommendation: no restrictions on diet Diet Texture: Regular Texture Diet Additional Instructions: diltiazem is a new medication for you, you have very high blood pressure and need to be on this f/u w your primary care provider - Follow Up Care Current Providers and Referrals: NONE *PRIMARY CARE P,. [Primary Care Provider] - As per Instructions
--- NOTE | 2018-04-09 10:46 | ASMTDCNOTE ---
Case Management Discharge Discharge Order Complete? Answers: Yes Patient to Obtain Answers: Other Notes: [facility] Transportation Arranged Answers: Other Notes: [facility] will Pick (Date 04/09/2018 02:30 PM & Time) Faxed Final Orders Answers: Yes Agency/Facility Transfer Answers: Yes Report Printed & Faxed to Receiving Agency Discharge Comments Notes: D/w RN ACLS, final orders faxed, [facility] notified. RN to call report Date Signed: 04/09/2018 10:45 AM Electronically Signed By:Yohana Tilley RN
[2018-04-09 12:01] VITALS: BP 134/69
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
--- NOTE | 2018-04-09 14:21 | GDS ---
DISCHARGE DIAGNOSES: 1. Pneumonia. 2. Respiratory syncytial virus. 3. Chronic obstructive pulmonary disease with acute exacerbation. 4. Hepatic encephalopathy. 5. Cirrhosis. 6. Right knee pain. 7. Shingles. 8. Coronary artery disease. 9. Atrial fibrillation. 10. History of upper gastrointestinal bleed. 11. Pedal edema. 12. History of migraine headaches. 13. Hypertension. CONSULTATIONS: Dr. Rajiv Daniel of Cardiology. 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 She presented somnolent with shortness of breath an d cough at the time of hospital admission. She was admitted and diagnosed with: 1. Pneumonia. This is treated with ceftriaxone and azithromycin during this hospitalization and has completely resolved. 2. RSV. She is no longer contagious and significantly improved. 3. COPD with acute exacerbation. She did receive supportive management. Her symptoms are completel y resolved. She has returned to baseline and saturating appropriately on room air. 4. Hepatic encephalopathy. She will continue her lactulose and her rifaximin. She is doing well an d is alert and oriented. 5. Cirrhosis. This is well compensated. 6. Right knee pain. This is resolved. 7. Rash. This is likely VCV shingles . She has been treated with Valtrex. 8. Coronary artery disease. She has an old left bundle branch block that is unchanged. 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 Diltiazem has been initiated. 9. Atrial fibrillation. She is status post permanent pacemaker in the past. 10. History of upper GI bleed. This is stable with no signs of bleeding. 11. Headache, history of migraines, stable. 12. Hypertension. This is improved on diltiazem. PHYSICAL EXAM: GENERAL: The patient is alert. VITAL SIGNS: Afebrile at 36.8, pulse 78, respirator y rate 15, blood pressure is 158/65. She is saturating 94% on room air. I have seen evaluated the p [facility] on the day of discharge. DISCHARGE MEDICATIONS: Please refer to EMR form. New medications, include diltiazem 30 mg q.6 hours . I have continued her other previously prescribed home medications. FOLLOWUP: Followup will be with her primary care provider. DISPOSITION: She will be [facility] to [facility] for further [facility] and management. TIME SPENT WITH PATIENT: I spent greater than 35 minutes in the care, coordination, and management o f this patient's disposition. /[id number]/MODL
== END 2018-04-09 12:56 | DRG 194 ==
LOC: EDUNIT# → F2W 20:40 → OBSVTOIN 03-26 12:38 → F3E 03-29 15:14
PROVIDERS: ADMIT Internal Medicine; ATTEND Internal Medicine
DX: J12.1 Respiratory syncytial virus pneumonia (principal); J44.1 Chronic obstructive pulmonary disease with (acute) exacerbation; E86.9 Volume depletion, unspecified; K72.10 Chronic hepatic failure without coma; M25.561 Pain in right knee; B02.9 Zoster without complications; I25.10 Atherosclerotic heart disease of native coronary artery without angina pectoris; I48.91 Unspecified atrial fibrillation; G43.909 Migraine, unspecified, not intractable, without status migrainosus; I10 Essential (primary) hypertension; K75.81 Nonalcoholic steatohepatitis (NASH); I44.7 Left bundle-branch block, unspecified; I27.29 Other secondary pulmonary hypertension; I07.1 Rheumatic tricuspid insufficiency; F31.9 Bipolar disorder, unspecified; Z59.0 Homelessness; Z95.810 Presence of automatic (implantable) cardiac defibrillator; Z72.0 Tobacco use
CPT/HCPCS: 96365; 97116-GP; 97162-GP; 97165-GO; 97530-GO; 97530-GP; 97535-GO; G0378; J0456; J0696; J1940; J7512; J7613